=== PATIENT | male | born 1940 | race Caucasian/White ===

== ENCOUNTER 2019-05-17 15:16 | Outpatient (CLI) | payer MEDICARE, SELFPAY ==
--- NOTE | ~2019-05-17 | US_ITS ---
EXAMINATION:US venous doppler LE BI INDICATION:Bilateral lower extremity swelling. TECHNIQUE: Multiple grayscale, color flow and Doppler images of the lower extremity deep venous syste ms were obtained and reviewed. COMPARISON:No prior studies for comparison. FINDINGS: The common femoral, superficial femoral and popliteal veins demonstrate normal respiratory variation, augmentation and compressibility. Color flow is also seen within the posterior tibial, pe roneal, greater saphenous and profunda veins. IMPRESSION: 1: No lower extremity deep venous thrombosis. Reviewed, dictated and finalized at location A.
== END 2019-05-17 15:17 | disposition home or self-care (01) ==
PROVIDERS: PCP Family Medicine; Visit Provider Family Medicine
DX: M79.89 Other specified soft tissue disorders (principal)
CPT/HCPCS: 93970

== ENCOUNTER 2019-11-26 17:13 | Inpatient (IN) | payer MEDICARE, SELFPAY ==
[2019-11-26 17:52] VITALS: BP 132/49; PULSE 68; RESP 16; TEMP 35.9; O2SAT 95
[2019-11-26 18:09] LABS: Mean Corpuscular HGB Conc 31.3 g/dl (32-36); Mean Corpuscular Hemoglobin 30.8 pg (26-34); Mean Corpuscular Volume 98.4 fl (80-100); Mean Platelet Volume 11.5 fl (7.4-10.4); Red Blood Count 1.82 M/mm3 (4.6-6.20); Red Cell Distribution Width 19.4 % (11.5-14.5); White Blood Count 21.1 K/mm3 (4.5-10.0)
[2019-11-26 18:18] LABS: Alanine Aminotransferase 11 U/L (4-50); Albumin Level 3.5 g/dL (3.5-5.1); Alkaline Phosphatase 52 U/L (38-126); Anion Gap 5 mmol/L (8-16); Aspartate Amino Transferase 23 U/L (17-59); Bilirubin,Total 0.4 mg/dL (0.2-1.3); Blood Urea Nitrogen 25 mg/dL (9-20); Calcium 8.6 mg/dL (8.4-10.2); Carbon Dioxide 26 mmol/L (22-30); Chloride 104 mmol/L (98-107); Estimated CRCL calculation 44 ml/min; Estimated Glomerular Filt Rate 54; Glucose 123 mg/dL (75-110); Potassium 3.9 mmol/L (3.4-5.0); Sodium 135 mmol/L (137-145)
[2019-11-26 18:25] LABS: Hemoglobin 5.6 g/dL (14.0-18.0); INR 1.2; Prothrombin Time 14.4 Seconds (11.1-14.7)
[2019-11-26 18:26] LABS: Hematocrit 17.9 % (42.0-52.0); Partial Thromboplastin Time 35.7 SECONDS (22.3-36.8)
[2019-11-26 18:27] LABS: Platelet Count Result 16 k/mm3 (150-375)
[2019-11-26 18:29] LABS: Lymphocytes Absolute Manual 18.14 K/mm3 (1.1-4.5); Monocytes Absolute Manual 0.42 K/mm3 (0.1-0.90); Monocytes Percent Manual 2 % (3-9); Neutrophils Percent Manual 12 % (46-73); Total Cells Counted 100
[2019-11-26 18:30] LABS: Platelet Estimate Decreased (Adequate)
[2019-11-26 18:31] LABS: Anisocytosis 3+ (NORMAL); Hypochromasia 1+ (NORMAL)
[2019-11-26 19:45] VITALS: RESP 19; O2SAT 94
--- NOTE | 2019-11-26 19:57 | ED.GENADULT ---
HPI - General Adult General Chief complaint: Recheck/Abnormal Lab/Rx Stated complaint: recheck blood level Time Seen by Provider: 11/26/19 19:38 Source: patient History of Present Illness HPI narrative: Patient is a 79 y/o male sent in by his PCP for low H/H. He has CLL and had routine labs done today. Lab showed low hemoglobin. He states that he has been feeling mild weakness for about 3 days. There is no alleviating or exacerbating factor. He is able to walk. He states that he noticed some blood on toilet tissue when he wipe. He denies any abdominal pain. Related Data Home Medications Medication Instructions Recorded Confirmed amlodipine 10 mg tablet 10 mg PO DAILY 05/17/19 11/26/19 cholecalciferol (vitamin D3) 25 1,000 unit PO DAILY 05/17/19 11/26/19 mcg (1,000 unit) capsule multivitamin 1 tablet PO DAILY 05/17/19 11/26/19 tafluprost (PF) 0.0015 % eye drops 1 drop RIGHT EYE QPM 05/21/19 11/26/19 in a dropperette timolol maleate 0.5 % once daily 1 drop RIGHTEYE QAM ml 05/21/19 11/26/19 eye drops ibrutinib 420 mg tablet 420 mg PO DAILY 11/26/19 11/26/19 tamsulosin 0.4 mg capsule 0.4 mg PO DAILY 11/26/19 11/26/19 Allergies Allergy/AdvReac Type Severity Reaction Status Date / Time No Known Allergies Allergy Verified 11/26/19 13:58 Review of Systems Constitutional: Constitutional: Denies chills, Denies fever(s), Denies headache(s) and Reports weakness Eyes: Eyes: Denies blurry vision ENT: Denies headache(s) and Denies neck pain Cardiovascular: Cardiovascular: Denies chest pain and Denies dyspnea Respiratory: Respiratory: Denies cough and Denies dyspnea Gastrointestinal: Gastrointestinal: Denies abdominal pain, Reports hematochezia, Denies diarrhea, Denies nausea and Denies vomiting Genitourinary: Genitourinary: Denies hematuria and Denies dysuria Musculoskeletal: Musculoskeletal: Denies back pain and Denies neck pain Neurologic: Denies headache(s) and Reports weakness PMFSH Past Medical History Medical History CLL (chronic lymphocytic leukemia) Family History Family History Sibling Family history of lung cancer Family history of malignant neoplasm of brain Father Family history of coronary artery disease Family history of cardiovascular disease Social History Social History Smoking status: Never smoker Smoking end date: 03/07/03 Alcohol intake: never Gender identity (if verbalized by the patient): Male Exam Const: General: no acute distress and well developed Orientation/consciousness: oriented to person, oriented to place, oriented to time and patient oriented x3 HENMT: Head: normocephalic Ears: external ears normal General nose exam: Normal external nose present Eyes: General: appearance normal, both eyes and all related structures Conjunctivae: conjunctivae normal Neck: Neck: normal visual inspection and full ROM Chest: Chest palpation & inspection: normal inspection of the chest and no tenderness Resp: Effort & Inspection: normal respiratory effort Auscultation: clear to auscultation bilaterally Cardio: Rate: regular rate Rhythm: regular rhythm GI: GI Palp: No abdominal tenderness and Yes Soft to palpation Skin: General skin exam: turgor normal and pallor Neuro: General: oriented to person, oriented to place, oriented to time and patient oriented x3 Cognition (Neuro): normal cognition Extrem: General: normal to inspection, full ROM and no pedal edema Psych: Appearance: grossly normal Mental Status: mental status grossly normal Affect: normal affect Course Consultations Consultation #1: Discussed with SARAH Painting, who agrees to admit to Dr. Lynch. Date: 11/26/19 Time: 19:57 Vital Signs Vital signs: Vital Signs Temperature 35.9 C L 11/26/19 17:52 Pulse Rate 68 11/26/19 17:52 Respiratory Ra
[2019-11-26 20:30] VITALS: BP 149/61; PULSE 71; RESP 18; O2SAT 90
[2019-11-26 22:00] VITALS: BP 147/62; PULSE 80; RESP 17; O2SAT 95
[2019-11-26 22:15] VITALS: O2SAT 95
--- NOTE | 2019-11-26 22:15 | ADMGEN ---
This patient, Mat Montoya, was admitted to [facility] Surg Room 315-02. Patient/family oriented to hospital policies and general routines including ID bracelet, bed and alarms, visiting hours, pain management, procedures, bathroom and other care routines, personal items, smoking policy, room service/diet, and visiting hours. Valuables list has been completed. Information on how to activate the Rapid Response Team has been discussed. Patient/Family are encouraged to report perceived risks to care and to ask questions if they do not understand what they are told or what they should do.
[2019-11-26 22:20] VITALS: BP 160/60; PULSE 77; RESP 20; TEMP 36.6; O2SAT 96; BMI 28.9
[2019-11-27] VITALS (16 sets, daily range): BP systolic 125–158; BP diastolic 48–75; PULSE 65–87; RESP 16–20; TEMP 36.5–36.8; O2SAT 90–96
[2019-11-27] MEDS: SODIUM CHLORIDE 0.9% IV 250 ML 30 ML IV CONT ×2 (00:10→10:15)
[2019-11-27 06:11] LABS: Basophils Percent Auto 0.2 % (0.2-1.2); Eosinophils Percent Auto 0.1 % (0-4.4); Immature Granulocyte Absolute 0.25 K/mm3 (0.00-0.031); Immature Platelet Fraction Pct 7.6 % (0.9-11.2); Lymphocytes Absolute Auto 20.53 K/mm3 (0.9-3.2); Lymphocytes Percent Auto 82.3 % (18.3-44.2); Mean Corpuscular Hemoglobin 30.1 pg (26-34); Mean Corpuscular Volume 94.1 fl (80-100); Mean Platelet Volume 10.3 fl (7.4-10.4); Monocytes Absolute Auto 0.3 K/mm3 (0.1-0.6); Monocytes Percent Auto 1.4 % (2.6-8.5); Neutrophils Absolute Auto 3.8 K/mm3 (1.3-6.7); Red Blood Count 2.19 M/mm3 (4.6-6.20); Red Cell Distribution Width 19.9 % (11.5-14.5)
[2019-11-27 06:46] LABS: Hemoglobin 6.6 g/dL (14.0-18.0)
[2019-11-27 06:47] LABS: Hematocrit 20.6 % (42.0-52.0); Platelet Count Result 14 k/mm3 (150-375)
--- NOTE | 2019-11-27 11:03 | PC.NURSE ---
1015 prbc started , 1030 pt tolerating well, denies any sob, no complaints of n/v, v/s normal.
[2019-11-27] MEDS: amLODIPine BESYLATE 5 MG TABLET 10 MG PO (12:47)
[2019-11-27] MEDS: CHOLECALCIFEROL 1,000 UNITS TABLET 1000 UNITS PO (12:47)
[2019-11-27] MEDS: FUROSEMIDE 40 MG TABLET PO (12:48)
[2019-11-27] MEDS: TAMSULOSIN HCL 0.4 MG CAPSULE PO (12:48)
[2019-11-27] MEDS: POTASSIUM CHLORIDE 20 MEQ TABLET.ER PO (12:48)
[2019-11-27] MEDS: MULTIVITAMINS THERAPEUTIC TAB (*BKC) 1 TABLET PO (12:48)
--- NOTE | 2019-11-27 13:49 | WPDONCCN ---
Assessment and Plan Assessment and plan (1) CLL (chronic lymphocytic leukemia): Code(s): C91.10 - Chronic lymphocytic leukemia of B-cell type not having achieved remission Status: Acute Assessment and Plan: His CLL has been stable in terms of his counts. Will hold Imbruvica due to severe anemia and thrombocytopenia. (2) Severe anemia: Code(s): D64.9 - Anemia, unspecified Status: Acute Assessment and Plan: Etiology not clear as his CLL is controlled. Could be secondary to Imbruvica or occult GI bleed. Obtain FOBT. My suspicion for autoimmune hemolysis is not high as his bilirubin is normal. However, will obtain Serum LDH, Haptoglobin and Direct stephanie. Will also obtain nutritional labs with - Serum Iron, Transferrin Saturation ( TSAT), Serum Total Iron binding capacity ( TIBC), Serum ferritin, Serum B12 and Folate and TSH with reflex to T4.Keep Hb around 8gm/dl. He received one unit of PRBC. (3) Thrombocytopenia: Code(s): D69.6 - Thrombocytopenia, unspecified Status: Acute Assessment and Plan: Thrombocytopenia. His count was normal on 10/29-PLT 151K. Could be secondary to Imbruvica.However I cannot well explain it, as his counts were normal 1 month back. Could be autoimmune due to underlying CLL. Will start methylprednisone 60 mg IV now and then 30mg IV BID starting tomorrow.Transfuse Single donor platelet if count less than 10K or any signs of bleeding. Follow up after results. HPI Data of Consult Date/Time: 11/27/19 13:49 Requesting Physician: Fina Lynch DO Primary Care Provider: Irene Bryan DO Consult Narrative Narrative: Mat Montoya is a 79 year old male who was sent to the [facility] ER for low H/H. The patient did have shortness of breath while in PCP office. In the ED he was ound to have a Hb of 5.6 and 6.6.Platelet count was 16K. His WBC and lymphocyte count has been stable around 25K and 20K respectively. Does complain of intermittent blood on toilet paper when he wipes but no active bleeding. He is a patient known to Dr. Carr and was diagnosed with CLL in July 2017. He was started on Imbruvica 420mg in early June 2019 by . He was last seen by him in Oct 2019 and was still on Imbruvica. Consulted for anemia and CLL Review of Systems Review of Systems: All systems reviewed & are unremarkable except as noted in HPI and below PMFSH Past Medical History Medical History CLL (chronic lymphocytic leukemia) Family History Family History Sibling Family history of lung cancer Family history of malignant neoplasm of brain Father Family history of coronary artery disease Family history of cardiovascular disease Social History Social History Smoking status: Former smoker Second hand tobacco smoke exposure: Yes (Son smokes) Smoking end date: 03/07/03 Alcohol intake: never Substance use: never Gender identity (if verbalized by the patient): Male Spiritual care concerns: No Meds Home Medications and Allergies Home Medications Medication Instructions Recorded Confirmed Type amlodipine 10 mg tablet 10 mg PO DAILY 05/17/19 11/27/19 History cholecalciferol (vitamin D3) 25 1,000 unit PO DAILY 05/17/19 11/27/19 History mcg (1,000 unit) capsule multivitamin 1 tablet PO DAILY 05/17/19 11/27/19 History tafluprost (PF) 0.0015 % eye drops 1 drop RIGHT EYE HS 05/21/19 11/27/19 History in a dropperette timolol maleate 0.5 % once daily 1 drop RIGHTEYE QAM AND QPM ml 05/21/19 11/27/19 History eye drops levothyroxine 100 mcg tablet 100 mcg PO DAILY #90 tablet 08/07/19 11/27/19 Rx fenofibrate 54 mg tablet 54 mg PO DAILY #90 tablet 10/08/19 11/27/19 Rx clotrimazole-betamethasone 1 1 applic TOPICAL BID #45 gm 10/15/19 11/27/19 Rx %-0.05 % topical cream
[2019-11-27 15:16] LABS: Hematocrit 22.1 % (42.0-52.0); Hemoglobin 7.3 g/dL (14.0-18.0)
--- NOTE | 2019-11-27 16:01 | WPDGICN ---
Assessment and Plan Assessment and plan (1) Blood in stool: Code(s): K92.1 - Melena Status: Acute Assessment and Plan: could be perianal most likely from significant thrombocytopenia however he never had a colonoscopy but right now it is not best timing to proceed with one. Ideally platelets will need to be above 50k. continue to monitor for signs of bleeding and if overt gib then will proceed with more urgent scope (2) Severe anemia: Code(s): D64.9 - Anemia, unspecified Status: Acute Assessment and Plan: either underling cll, due to imbruvica. Work up in progress to rule out other causes (hemolysis, occult gib, etc) hem-onc on board (3) CLL (chronic lymphocytic leukemia): Code(s): C91.10 - Chronic lymphocytic leukemia of B-cell type not having achieved remission Status: Acute (4) Thrombocytopenia: Code(s): D69.6 - Thrombocytopenia, unspecified Status: Acute Assessment and Plan: severe thrombocytopenia started on steroids for now and continue to monitor (5) Edema: Code(s): R60.9 - Edema, unspecified Status: Acute GI Consult Note Consult date/time: 11/27/19 16:01 Reason for consult: symptomatic anemia, blood in stools HPI: Mat Montoya is a 79 year old male with history of CLL diagnosed July 2017 treated with imbruvica. He went to see his doctor because has been feeling more tired than usual, also leg edema. Blood work revealed Hb of 5.6, Platelet count 16K (about a month ago 151k's). His WBC stable around 25K . He noted scant amount of blood on toilet paper when he wipes but denies melena, no clots, normal BM's. He never had a colonoscopy. He received blood transfusion and hem-onc has evaluated patient. Review of Systems Constitutional: Constitutional: Reports fatigue and Denies headache(s) Eyes: Eyes: Denies blurry vision ENT: Reports Normal hearing present, Denies headache(s) and Denies neck pain Cardiovascular: Cardiovascular: Denies chest pain and Denies dyspnea Respiratory: Respiratory: Denies dyspnea Gastrointestinal: Gastrointestinal: Reports no additional gastrointestinal complaints Genitourinary: Genitourinary: Denies dysuria Musculoskeletal: Musculoskeletal: Denies neck pain Integumentary/Breasts: Skin/Breast: Denies dry skin Neurologic: Reports Normal hearing present, Denies headache(s) and Denies weakness Psychiatric: Psychiatric: Denies anxiety Endocrine: Endocrine: Denies change in body appearance Hematologic/Lymphatic: Comments: h/o CLL Allergic/Immunologic: Allergic/Immunologic: Denies urticaria PMFSH Past Medical History Medical History CLL (chronic lymphocytic leukemia) Family History Family History Sibling Family history of lung cancer Family history of malignant neoplasm of brain Father Family history of coronary artery disease Family history of cardiovascular disease Social History Social History Smoking status: Former smoker Second hand tobacco smoke exposure: Yes (Son smokes) Smoking end date: 03/07/03 Alcohol intake: never Substance use: never Gender identity (if verbalized by the patient): Male Spiritual care concerns: No Meds Home Medications and Allergies Home Medications Medication Instructions Recorded Confirmed Type amlodipine 10 mg tablet 10 mg PO DAILY 05/17/19 11/27/19 History cholecalciferol (vitamin D3) 25 1,000 unit PO DAILY 05/17/19 11/27/19 History mcg (1,000 unit) capsule multivitamin 1 tablet PO DAILY 05/17/19 11/27/19 History tafluprost (PF) 0.0015 % eye drops 1 drop RIGHT EYE HS 05/21/19 11/27/19 History in a dropperette timolol maleate 0.5 % once daily 1 drop RIGHTEYE QAM AND QPM ml 05/21/19 11/27/19 History eye drops levothyroxine 100 mcg tablet 100 mcg PO DAILY #90 tablet 06
[2019-11-27 16:45] LABS: Lactate Dehydrogenase 396 U/L (313-618)
[2019-11-27 17:05] LABS: Iron 237 ug/dL (49-181)
--- NOTE | 2019-11-27 17:08 | PM.IMHP ---
H&P: HPI History of Present Illness Date/Time: 11/27/19 17:08 Chief complaint: severe anemia Narrative: Mat Montoya is a 79 year old male admitted with 3 days of rectal bleeding, bright red on tissue paper only, no mixed with his stools. Pts hb today is 5.6. Pts has a history of CLL not in remission. Pts labs also show platelets [place] 14 [place] [id number]. Pt seen by GI and oncology. Steroids iv ordered already by oncology. And pt has already received blood transfusion. I believe pt has already had his colonscopy. I will order notes from his PCP, DR Jones. No other specific complaints apart from lethargy and weakness and BRBR. Review of Systems Review of Systems: All systems reviewed & are unremarkable except as noted in HPI and below ROS unobtainable: Yes other (bright red rectal bleeding, weakness, lethargy ) PMFSH Past Medical History Medical History Blood in stool CLL (chronic lymphocytic leukemia) Family History Family History Sibling Family history of lung cancer Family history of malignant neoplasm of brain Father Family history of coronary artery disease Family history of cardiovascular disease Social History Social History Smoking status: Former smoker Second hand tobacco smoke exposure: Yes (Son smokes) Smoking end date: 03/07/03 Alcohol intake: never Substance use: never Gender identity (if verbalized by the patient): Male Spiritual care concerns: No Meds Home Medications and Allergies Home Medications Medication Instructions Recorded Confirmed Type amlodipine 10 mg tablet 10 mg PO DAILY 05/17/19 11/27/19 History cholecalciferol (vitamin D3) 25 1,000 unit PO DAILY 05/17/19 11/27/19 History mcg (1,000 unit) capsule multivitamin 1 tablet PO DAILY 05/17/19 11/27/19 History tafluprost (PF) 0.0015 % eye drops 1 drop RIGHT EYE HS 05/21/19 11/27/19 History in a dropperette timolol maleate 0.5 % once daily 1 drop RIGHTEYE QAM AND QPM ml 05/21/19 11/27/19 History eye drops levothyroxine 100 mcg tablet 100 mcg PO DAILY #90 tablet 08/07/19 11/27/19 Rx fenofibrate 54 mg tablet 54 mg PO DAILY #90 tablet 10/08/19 11/27/19 Rx clotrimazole-betamethasone 1 1 applic TOPICAL BID #45 gm 10/15/19 11/27/19 Rx %-0.05 % topical cream ibrutinib 420 mg tablet 420 mg PO DAILY 11/26/19 11/27/19 History tamsulosin 0.4 mg capsule 0.4 mg PO DAILY 11/26/19 11/27/19 History loratadine [Claritin] 10 mg PO DAILY PRN 11/27/19 11/27/19 History Allergies Allergy/AdvReac Type Severity Reaction Status Date / Time No Known Allergies Allergy Verified 11/26/19 13:58 Vital Signs Vital Signs - 24 hr 11/26/19 17:52 11/26/19 19:45 11/26/19 20:30 Temperature 35.9 C L Pulse Rate 68 71 Respiratory Rate 16 19 18 Blood Pressure 132/49 L 149/61 H Pulse Oximetry 95 94 90 11/26/19 22:00 11/26/19 22:15 11/26/19 22:20 Temperature 36.6 C Pulse Rate 80 77 Respiratory Rate 17 20 Blood Pressure 147/62 H 160/60 H Pulse Oximetry 95 95 96 11/27/19 00:10 11/27/19 00:25 11/27/19 01:25 Temperature 36.7 C 36.6 C 36.7 C Pulse Rate 78 78 76 Respiratory Rate 20 20 20 Blood Pressure 151/75 H 151/48 H 125/62 Pulse Oximetry 95 93 95 11/27/19 02:25 11/27/19 03:25 11/27/19 06:00 Temperature 36.6 C 36.5 C 36.6 C Pulse Rate 72 74 87 Respiratory Rate 18 18 20 Blood Pressure 144/49 H 150/54 H 158/65 H Pulse Oximetry 95 96 94 11/27/19 09:15 11/27/19 10:05 11/27/19 10:13 Temperature 36.8 C Pulse Rate 67 Respiratory Rate 16 Blood Pressure 146/48 H Pulse Oximetry 93 92 92 11/27/19 10:20 11/27/19 10:30 11/27/19 11:15 Temperature 36.8 C 36.6 C 36.6 C Pulse Rate 67 68 66 Respiratory Rate 16 16 18 Blood Pressure 146/68 H 148/50 H 145/57 H Pulse Oximetry 92 93 91 11/27/19 12:15 11/27/19 12:40 11/27/19 1
[2019-11-27 17:14] LABS: Percent Iron Saturation 88 % (20-50)
[2019-11-27] MEDS: methylPREDNISolone SOD SUCC 125 MG VIAL 60 MG IV PUSH (17:30)
[2019-11-27 18:40] LABS: Hematocrit 24.3 % (42.0-52.0); Immature Platelet Fraction Pct 7.3 % (0.9-11.2); Mean Corpuscular HGB Conc 32.9 g/dl (32-36); Mean Corpuscular Hemoglobin 30.5 pg (26-34); Mean Corpuscular Volume 92.7 fl (80-100); Red Blood Count 2.62 M/mm3 (4.6-6.20); Red Cell Distribution Width 19.2 % (11.5-14.5); White Blood Count 24.7 K/mm3 (4.5-10.0)
[2019-11-27 18:47] LABS: Platelet Count Result 17 k/mm3 (150-375)
[2019-11-27 21:16] LABS: Hematocrit 23.6 % (42.0-52.0); Hemoglobin 7.7 g/dL (14.0-18.0); Immature Platelet Fraction Pct 5.9 % (0.9-11.2); Mean Corpuscular HGB Conc 32.6 g/dl (32-36); Mean Corpuscular Hemoglobin 30.2 pg (26-34); Mean Corpuscular Volume 92.5 fl (80-100); Mean Platelet Volume 11.3 fl (7.4-10.4); Red Blood Count 2.55 M/mm3 (4.6-6.20); Red Cell Distribution Width 19.2 % (11.5-14.5); White Blood Count 17.9 K/mm3 (4.5-10.0)
[2019-11-27 21:20] LABS: Platelet Count Result 16 k/mm3 (150-375)
[2019-11-27] MEDS: BETAMETHASONE/CLOTRIMAZOLE CR 45 GM TUBE 1 APPLIC TOPICAL (21:30)
[2019-11-27] MEDS: TIMOLOL MALEATE 0.5% OP SOLN 5 ML BOTTLE 1 DROP RIGHT EYE (21:30)
[2019-11-27] MEDS: methylPREDNISolone SOD SUCC 40 MG VIAL 30 MG IV PUSH (21:57)
[2019-11-28 05:00] VITALS: BP 136/66; PULSE 80; RESP 18; TEMP 36.7; O2SAT 92
[2019-11-28] MEDS: LEVOTHYROXINE SODIUM 100 MCG TABLET PO (05:50)
[2019-11-28] MEDS: amLODIPine BESYLATE 5 MG TABLET 10 MG PO (08:45)
[2019-11-28] MEDS: FUROSEMIDE 40 MG TABLET PO (08:45)
[2019-11-28] MEDS: POTASSIUM CHLORIDE 20 MEQ TABLET.ER PO (08:45)
[2019-11-28] MEDS: MULTIVITAMINS THERAPEUTIC TAB (*BKC) 1 TABLET PO (08:45)
[2019-11-28] MEDS: CHOLECALCIFEROL 1,000 UNITS TABLET 1000 UNITS PO (08:46)
[2019-11-28] MEDS: TIMOLOL MALEATE 0.5% OP SOLN 5 ML BOTTLE 1 DROP RIGHT EYE ×2 (08:46→20:09)
[2019-11-28] MEDS: BETAMETHASONE/CLOTRIMAZOLE CR 45 GM TUBE 1 APPLIC TOPICAL ×2 (08:46→20:09)
[2019-11-28] MEDS: TAMSULOSIN HCL 0.4 MG CAPSULE PO (08:46)
[2019-11-28] MEDS: PANTOPRAZOLE SODIUM IV 40 MG VIAL IV PUSH (08:46)
[2019-11-28] MEDS: methylPREDNISolone SOD SUCC 40 MG VIAL 30 MG IV PUSH ×2 (08:52→20:09)
--- NOTE | 2019-11-28 11:46 | WPDGIPROGNO ---
Progress Note: A&P Assessment and Plan (1) Severe anemia: Code(s): D64.9 - Anemia, unspecified Status: Acute Assessment and Plan: most likely hematological related (CLL, side effect imbruvica, etc), hem-onc on board no overt gib. still with severe thrombocytopenia and colonoscopy now will be risky he received blood transfusion (2) Blood in stool: Code(s): K92.1 - Melena Status: Acute Assessment and Plan: he has not seen any since admission (3) Thrombocytopenia: Code(s): D69.6 - Thrombocytopenia, unspecified Status: Acute Assessment and Plan: by hematology, empirically on iv steroids (4) CLL (chronic lymphocytic leukemia): Code(s): C91.10 - Chronic lymphocytic leukemia of B-cell type not having achieved remission Status: Acute (5) Edema: Code(s): R60.9 - Edema, unspecified Status: Acute Subjective Date/time seen: 11/28/19 11:46 Interval history: he is comfortable, had BM yesterday without blood. Leg edema better. Review of Systems Review of Systems: All systems reviewed & are unremarkable except as noted in HPI and below Exam Const: General: comfortable and no acute distress HENMT: General nose exam: Normal nares present Eyes: General: appearance normal, both eyes and all related structures Neck: Neck: no JVD Resp: Effort & Inspection: normal respiratory effort Auscultation: clear to auscultation bilaterally Cardio: Rate: regular rate Rhythm: regular rhythm Heart sounds: Murmur heart sound present (soft murmur) GI: Inspection: non-distended GI Palp: Yes Soft to palpation Auscultation: normal bowel sounds Skin: General skin exam: pallor Other: erythema in both legs Neuro: General: gait normal Speech: normal speech Extrem: General: pedal edema Psych: Mental Status: mental status grossly normal Objective Data Vital Signs Vital Signs: Vital Signs - 24 hr 11/27/19 12:15 11/27/19 12:40 11/27/19 14:00 Temperature 98.0 F 97.8 F 98.2 F Pulse Rate 66 74 65 Respiratory Rate 18 18 20 Blood Pressure 151/53 H 146/50 H 148/51 H Pulse Oximetry 93 94 93 11/27/19 21:59 11/28/19 05:00 Temperature 98.2 F 98.0 F Pulse Rate 75 80 Respiratory Rate 18 18 Blood Pressure 148/61 H 136/66 Pulse Oximetry 90 92 Intake/Output Intake/Output: Intake & Output 11/25/19 11/26/19 11/27/19 11/28/19 23:59 23:59 23:59 23:59 Intake Total 2045 390 Output Total 2400 1300 Balance -355 -090 Meds/Results Medications: Active Medications Generic Name Dose Route Start Last Admin Trade Name Freq PRN Reason Stop Dose Admin Amlodipine Besylate 10 mg 11/27/19 09:00 11/28/19 08:45 Norvasc PO 10 mg DAILY MARLEEN Administration Clotrimazole 1 applic 11/27/19 21:00 11/28/19 08:46 Lotrisone Cream TOPICAL 1 applic Q12HR MARLEEN Administration Furosemide 40 mg 11/27/19 09:00 11/28/19 08:45 Lasix Tablet PO 40 mg QAM MARLEEN Administration Levothyroxine Sodium 100 mcg 11/28/19 06:30 11/28/19 05:50 Synthroid PO 100 mcg DAILY@0630 MARLEEN Administration Loratadine 10 mg 11/27/19 11:52 Claritin PO DAILY PRN Allergy Symptoms Methylprednisolone Sodium Succinate 30 mg 11/27/19 21:00 11/28/19 08:52 Solu-Medrol IV PUSH 30 mg Q12H MARLEEN Administration Multivitamins Therapeutic 1 tablet 11/27/19 09:00 11/28/19 08:45 Multivitamins Therapeutic(*Bkc PO 1 tablet DAILY MARLEEN Administration Non-Formulary Medication 54 mg 11/28/19 09:00 Fenofibrate PO 12/28/19 09:01 DAILY MARLEEN Non-Formulary Medication 1 drop 11/27/19 21:00 Tafluprost (Pf) [Zioptan (Pf)] XX 12/27/19 21:01 [facility] Pantoprazole Sodium 40 mg 11/28/19 09:00 11/28/19 08:46 Protonix Iv IV PUSH 40 mg QAM MARLEEN Administration Potassium Chloride 20 meq 11/27/19 09:00 11/28/19 08:45 Kcl Tablet PO 20 meq DAILY MARLEEN Administration Tamsulosin HCl 0.4 mg 11/27/19 09:00
[2019-11-28 14:00] VITALS: BP 134/50; PULSE 76; RESP 18; TEMP 36.6; O2SAT 92
--- NOTE | 2019-11-28 14:09 | PM.IMPN ---
Progress Note: A&P Assessment and Plan (1) Blood in stool: Code(s): K92.1 - Melena Status: Acute Assessment and Plan: No further rectal bleeding, pt remain hemodynamically stable (2) Thrombocytopenia: Code(s): D69.6 - Thrombocytopenia, unspecified Status: Acute Assessment and Plan: Pt seen by oncology Iv steroids have been started hold ibrutinib and any blood thinners monitor plts (3) Severe anemia: Code(s): D64.9 - Anemia, unspecified Status: Acute Assessment and Plan: Pt is sp blood transfusion improved to hb 7 continue to monitor hold ibrutinib and any blood thinners (4) CLL (chronic lymphocytic leukemia): Code(s): C91.10 - Chronic lymphocytic leukemia of B-cell type not having achieved remission Status: Acute Assessment and Plan: Dr Arriaga consulted, follow recommendations Subjective Date/time seen: 11/28/19 14:09 Interval history: 79 year old male admitted with 3 days of rectal bleeding. Pts has a history of CLL not in remission. Pt seen by GI and oncology. Steroids iv ordered already by oncology. And pt has already received blood transfusion. No further bleeding reported. Plts improving slowly at 16, hb is 7. Review of Systems Review of Systems: All systems reviewed & are unremarkable except as noted in HPI and below Gastrointestinal: Gastrointestinal: Denies abdominal pain and Denies hematochezia Exam Const: General: other (weakness, tiredness and lethargy ) HENMT: Head: normocephalic Eyes: General: appearance normal, both eyes and all related structures Pupils: Equal, round and reactive pupils present Neck: Neck: supple Chest: Chest palpation & inspection: normal inspection of the chest Resp: Effort & Inspection: normal respiratory effort Auscultation: clear to auscultation bilaterally Cardio: Jugular venous distension: no JVD Rhythm: regular rhythm Heart sounds: S1 normal heart sound present and S2 normal heart sound present GI: Inspection: normal to inspection Auscultation: normal bowel sounds Skin: General skin exam: normal color and dry skin Neuro: Cranial nerves: Yes CN's II-XII intact bilaterally and Yes Equal, round and reactive pupils present Cognition (Neuro): normal cognition Speech: normal speech Motor exam (neuro): 5/5 motor strength present throughout Extrem: General: normal to inspection Psych: Appearance: grossly normal Mental Status: mental status grossly normal Objective Data Vital Signs Vital Signs: Vital Signs - 24 hr 11/27/19 21:59 11/28/19 05:00 Temperature 36.8 C 36.7 C Pulse Rate 75 80 Respiratory Rate 18 18 Blood Pressure 148/61 H 136/66 Pulse Oximetry 90 92 Intake/Output Intake/Output: Intake & Output 11/25/19 11/26/19 11/27/19 11/28/19 23:59 23:59 23:59 23:59 Intake Total 2045 390 Output Total 2400 1300 Balance -355 910 Meds/Results Medications: Active Medications Generic Name Dose Route Start Last Admin Trade Name Freq PRN Reason Stop Dose Admin Amlodipine Besylate 10 mg 11/27/19 09:00 11/28/19 08:45 Norvasc PO 10 mg DAILY MARLEEN Administration Clotrimazole 1 applic 11/27/19 21:00 11/28/19 08:46 Lotrisone Cream TOPICAL 1 applic Q12HR MARLEEN Administration Furosemide 40 mg 11/27/19 09:00 11/28/19 08:45 Lasix Tablet PO 40 mg QAM MARLEEN Administration Levothyroxine Sodium 100 mcg 11/28/19 06:30 11/28/19 05:50 Synthroid PO 100 mcg DAILY@0630 MARLEEN Administration Loratadine 10 mg 11/27/19 11:52 Claritin PO DAILY PRN Allergy Symptoms Methylprednisolone Sodium Succinate 30 mg 11/27/19 21:00 11/28/19 08:52 Solu-Medrol IV PUSH 30 mg Q12H MARLEEN Administration Multivitamins Therapeutic 1 tablet 11/27/19 09:00 11/28/19 08:45 Multivitamins Therapeutic(*Bkc PO 1 tablet DAILY MARLEEN Administration Non-Formulary Medication 54 mg 11/28/19 09:00 Fenofibrate PO 12/28/19 09:01
--- NOTE | 2019-11-28 14:50 | WPDONCPN ---
Progress Note: A&P Assessment and Plan (1) CLL (chronic lymphocytic leukemia): Code(s): C91.10 - Chronic lymphocytic leukemia of B-cell type not having achieved remission Status: Acute Assessment and Plan: 1. Absolute Lymphocyte count improved 2. WBC decreased 3. partial response / remission with CLL from Imbruvica 4. Continue to hold Imbruvica (2) Thrombocytopenia: Code(s): D69.6 - Thrombocytopenia, unspecified Status: Acute Assessment and Plan: 1. ? 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 check fibrinogen 3. also check retic count / LDH / hapto for AHA 4. CBC daily 5. Continue with MP 6. if CBC today returns with no change, I will add IVIG Time Spent With Patient Time with patient: 15 - 25 minutes Review of Systems Review of Systems All systems reviewed & are unremarkable except as noted in HPI and below Constitutional Constitutional: Denies anorexia, Reports fatigue, Denies fever(s), Denies malaise, Denies night sweats, Reports snoring, Reports weakness and Denies weight loss Eyes Eyes: Denies blurry vision ENT Denies dysphagia, Denies epistaxis, Denies mouth lesions, Denies mouth pain, Denies odynophagia, Denies disequilibrium and Denies sore throat Cardiovascular Cardiovascular: Denies chest pain, Reports pedal edema, Reports leg edema and Denies dyspnea Respiratory Respiratory: Denies cough, Reports dyspnea, Reports dyspnea on exertion and Reports snoring Gastrointestinal Gastrointestinal: Denies abdominal pain, Reports melena, Denies constipation, Denies dysphagia, Denies diarrhea, Denies nausea, Denies odynophagia and Denies vomiting Genitourinary Genitourinary: Denies hematuria and Denies dysuria Musculoskeletal Musculoskeletal: Denies myalgias, Denies arthralgias and Denies muscle weakness Integumentary/Breasts Skin/Breast: Denies rash and Reports unusual bruising Neurologic Reports abnormal gait, Denies confusion, Denies disequilibrium and Denies weakness Psychiatric Psychiatric: Denies anxiety, Denies confusion and Denies depression Endocrine Endocrine: Denies fatigue Hematologic/Lymphatic Hematologic/Lymphatic: Denies easy bleeding, Denies easy bruising and Denies lymphadenopathy Exam Const: General: healthy appearing, no acute distress, well developed, alert and awake Nutritional Appearance: well nourished Orientation/consciousness: patient oriented x3 HENMT: Head: normocephalic and atraumatic Ears: external ears normal General nose exam: Normal external nose present and Normal nares present Face and sinus: sinuses nontender Mouth: Yes Normal oral and palatal mucosa present and Yes moist mucous membranes Teeth and gingiva: dentition normal Throat: uvula midline Eyes: Conjunctivae: conjunctivae normal Pupils: Equal, round and reactive pupils present EOM: EOMs intact bilaterally Neck: Neck: full ROM, no lymphadenopathy and supple Chest: Chest palpation & inspection: normal inspection of the chest Resp: Effort & Inspection: normal respiratory effort Auscultation: clear to auscultation bilaterally Cardio: Rate: regular rate Rhythm: regular rhythm Heart sounds: S1 normal heart sound present and S2 normal heart sound present Peripheral pulses: Peripheral pulses 2+ throughout GI: Percussion: Yes normal to percussion Auscultation: normal bowel sounds Rectal Exam: deferred : General: Yes no CVA tenderness Back/Spine/Pelvis: Back: no CVA tenderness Skin: General skin exam: No normal color, no rashes or lesions noted, turgor normal and no ecchymosis Rashes: no rashes Other: multiple ecchymoses on forearms pallor Neuro: General: patient oriented x3, No gait normal, tone normal and moves all extremities Cranial nerves: Yes CN's II-XII intact bilaterally and Yes Equal, round and reactive pupils present Cognition (Neuro): normal cognition Speech: normal speech Gait exam (Neuro): Normal gait present Motor exam (neuro): Abnormal motor strength present Sensory Exam: normal sens
[2019-11-28 15:46] LABS: Hematocrit 22.9 % (42.0-52.0); Hemoglobin 7.5 g/dL (14.0-18.0); Mean Corpuscular HGB Conc 32.8 g/dl (32-36); Mean Corpuscular Hemoglobin 30.5 pg (26-34); Mean Corpuscular Volume 93.1 fl (80-100); Mean Platelet Volume 10.1 fl (7.4-10.4); Red Blood Count 2.46 M/mm3 (4.6-6.20); Red Cell Distribution Width 18.6 % (11.5-14.5); White Blood Count 24.7 K/mm3 (4.5-10.0)
[2019-11-28 15:49] LABS: Platelet Count Result 14 k/mm3 (150-375)
[2019-11-28] MEDS: diphenhydrAMINE HCl CAP 25 MG CAPSULE PO (18:02)
[2019-11-28] MEDS: ACETAMINOPHEN 500 MG TABLET 1000 MG PO (18:11)
[2019-11-28 18:38] LABS: Hematocrit 24.6 % (42.0-52.0); Hemoglobin 8.1 g/dL (14.0-18.0); Mean Corpuscular HGB Conc 32.9 g/dl (32-36); Mean Corpuscular Hemoglobin 30.6 pg (26-34); Mean Corpuscular Volume 92.8 fl (80-100); Mean Platelet Volume 12.6 fl (7.4-10.4); Red Blood Count 2.65 M/mm3 (4.6-6.20); Red Cell Distribution Width 18.6 % (11.5-14.5); White Blood Count 27.3 K/mm3 (4.5-10.0)
[2019-11-28 18:43] LABS: Platelet Count Result 20 k/mm3 (150-375)
[2019-11-28 22:00] VITALS: BP 124/61; PULSE 71; RESP 18; TEMP 36.7; O2SAT 90
[2019-11-29] MEDS: LEVOTHYROXINE SODIUM 100 MCG TABLET PO (05:50)
[2019-11-29 06:00] VITALS: BP 142/60; PULSE 73; RESP 18; TEMP 36.4; O2SAT 90
[2019-11-29 06:07] LABS: Hematocrit 22.4 % (42.0-52.0); Hemoglobin 7.4 g/dL (14.0-18.0); Immature Platelet Fraction Pct 6.5 % (0.9-11.2); Immature Reticulocyte Fraction 20.4 % (3.0-15.9); Mean Corpuscular Hemoglobin 30.8 pg (26-34); Mean Corpuscular Volume 93.3 fl (80-100); Mean Platelet Volume 11.4 fl (7.4-10.4); Red Cell Distribution Width 18.3 % (11.5-14.5); Reticulocyte Hemoglobin Conten 38.7 pg (28.2-35.7); Reticulocyte Percent 0.32 % (0.7-4.3); Reticulocytes Absolute 0.01 B/L (32.2-175.7); White Blood Count 21.5 K/mm3 (4.5-10.0)
[2019-11-29 06:18] LABS: Anion Gap 2 mmol/L (8-16); Blood Urea Nitrogen 27 mg/dL (9-20); Calcium 8.3 mg/dL (8.4-10.2); Carbon Dioxide 28 mmol/L (22-30); Chloride 106 mmol/L (98-107); Estimated CRCL calculation 44 ml/min; Estimated Glomerular Filt Rate 54; Glucose 126 mg/dL (75-110); Lactate Dehydrogenase 367 U/L (313-618); Sodium 136 mmol/L (137-145)
[2019-11-29 06:51] LABS: Platelet Count Result 18 k/mm3 (150-375)
[2019-11-29 06:55] LABS: Fibrinogen 213 mg/dl (215-510)
[2019-11-29 08:00] VITALS: PULSE 73; RESP 18; O2SAT 90
[2019-11-29] MEDS: POTASSIUM CHLORIDE 20 MEQ TABLET.ER PO (09:32)
[2019-11-29] MEDS: amLODIPine BESYLATE 5 MG TABLET 10 MG PO (09:33)
[2019-11-29] MEDS: MULTIVITAMINS THERAPEUTIC TAB (*BKC) 1 TABLET PO (09:33)
[2019-11-29] MEDS: methylPREDNISolone SOD SUCC 40 MG VIAL 30 MG IV PUSH ×2 (09:33→20:56)
[2019-11-29] MEDS: CHOLECALCIFEROL 1,000 UNITS TABLET 1000 UNITS PO (09:33)
[2019-11-29] MEDS: FUROSEMIDE 40 MG TABLET PO (09:33)
[2019-11-29] MEDS: TAMSULOSIN HCL 0.4 MG CAPSULE PO (09:33)
[2019-11-29] MEDS: PANTOPRAZOLE SODIUM IV 40 MG VIAL IV PUSH (09:34)
[2019-11-29] MEDS: TIMOLOL MALEATE 0.5% OP SOLN 5 ML BOTTLE 1 DROP RIGHT EYE ×2 (09:34→20:55)
[2019-11-29] MEDS: BETAMETHASONE/CLOTRIMAZOLE CR 45 GM TUBE 1 APPLIC TOPICAL ×2 (09:35→20:55)
--- NOTE | 2019-11-29 13:02 | PM.IMPN ---
Progress Note: A&P Assessment and Plan (1) Blood in stool: Code(s): K92.1 - Melena Status: Acute Assessment and Plan: No further rectal bleeding, pt remain hemodynamically stable (2) Thrombocytopenia: Code(s): D69.6 - Thrombocytopenia, unspecified Status: Acute Assessment and Plan: Pt seen by oncology Iv steroids have been started and iv immunoglobulin hold ibrutinib and any blood thinners monitor plts (3) Severe anemia: Code(s): D64.9 - Anemia, unspecified Status: Acute Assessment and Plan: Pt is sp blood transfusion improved to hb 7 continue to monitor hold ibrutinib and any blood thinners (4) CLL (chronic lymphocytic leukemia): Code(s): C91.10 - Chronic lymphocytic leukemia of B-cell type not having achieved remission Status: Acute Assessment and Plan: Dr Arriaga and Bruno consulted, follow recommendations Subjective Date/time seen: 11/29/19 13:02 Interval history: 79 year old male admitted with 3 days of rectal bleeding. Pts has a history of CLL not in remission. Pt seen by GI and oncology. Steroids iv ordered already by oncology. And pt has already received blood transfusion. No further bleeding reported. Plts improving slowly at 18. hb is 7. Pt has been started on immunoglobulin by oncology Review of Systems Review of Systems: All systems reviewed & are unremarkable except as noted in HPI and below Exam Const: General: anxious and other HENMT: Head: normocephalic Eyes: General: appearance normal, both eyes and all related structures Pupils: Equal, round and reactive pupils present Neck: Neck: supple Chest: Chest palpation & inspection: normal inspection of the chest Resp: Effort & Inspection: normal respiratory effort Auscultation: clear to auscultation bilaterally Cardio: Jugular venous distension: no JVD Rhythm: regular rhythm Heart sounds: S1 normal heart sound present and S2 normal heart sound present GI: Inspection: normal to inspection Auscultation: normal bowel sounds Skin: Other: petechial rash on back and stomach Neuro: Cranial nerves: Yes CN's II-XII intact bilaterally and Yes Equal, round and reactive pupils present Cognition (Neuro): normal cognition Speech: normal speech Motor exam (neuro): 5/5 motor strength present throughout Extrem: General: normal to inspection Psych: Appearance: grossly normal Mental Status: mental status grossly normal Objective Data Vital Signs Vital Signs: Vital Signs - 24 hr 09/23/20 14:00 11/28/19 22:00 11/29/19 06:00 Temperature 36.6 C 36.7 C 36.4 C Pulse Rate 76 71 73 Respiratory Rate 18 18 18 Blood Pressure 134/50 L 124/61 142/60 H Pulse Oximetry 92 90 90 11/29/19 08:00 Temperature Pulse Rate 73 Respiratory Rate 18 Blood Pressure Pulse Oximetry 90 Intake/Output Intake/Output: Intake & Output 11/26/19 11/27/19 11/28/19 11/29/19 23:59 23:59 23:59 23:59 Intake Total 2045 1270 1400 Output Total 2400 2400 1050 Balance -355 -1130 350 Meds/Results Medications: Active Medications Generic Name Dose Route Start Last Admin Trade Name Freq PRN Reason Stop Dose Admin Amlodipine Besylate 10 mg 11/27/19 09:00 11/29/19 09:33 Norvasc PO 10 mg DAILY MARLEEN Administration Clotrimazole 1 applic 11/27/19 21:00 11/29/19 09:35 Lotrisone Cream TOPICAL 1 applic Q12HR MARLEEN Administration Furosemide 40 mg 11/27/19 09:00 11/29/19 09:33 Lasix Tablet PO 40 mg QAM MARLEEN Administration Levothyroxine Sodium 100 mcg 11/28/19 06:30 11/29/19 05:50 Synthroid PO 100 mcg DAILY@0630 MARLEEN Administration Loratadine 10 mg 11/27/19 11:52 Claritin PO DAILY PRN Allergy Symptoms Methylprednisolone Sodium Succinate 30 mg 11/27/19 21:00 11/29/19 09:33 Solu-Medrol IV PUSH 30 mg Q12H MARLEEN Administration Multivitamins Therapeutic 1 tablet 11/27/19 09:00 11/29/19 09:33 Multivitamins Therapeutic(
--- NOTE | 2019-11-29 13:14 | WPDGIPROGNO ---
Progress Note: A&P Assessment and Plan (1) Severe anemia: Code(s): D64.9 - Anemia, unspecified Status: Acute Assessment and Plan: most likely hematological related (CLL, side effect imbruvica, etc), hem-onc on board no overt gib and right now is not the best time to proceed with colonoscopy given thrombocytopenia we can always do one as outpatient when platelets >50k [place], please call if questions (2) Blood in stool: Code(s): K92.1 - Melena Status: Acute Assessment and Plan: he has not seen any since admission (3) Thrombocytopenia: Code(s): D69.6 - Thrombocytopenia, unspecified Status: Acute Assessment and Plan: by hematology, empirically on iv steroids and consider ivig (4) CLL (chronic lymphocytic leukemia): Code(s): C91.10 - Chronic lymphocytic leukemia of B-cell type not having achieved remission Status: Acute (5) Edema: Code(s): R60.9 - Edema, unspecified Status: Acute Subjective Date/time seen: 11/29/19 13:14 Interval history: no report of rectal bleeding, he is comfortable Review of Systems Review of Systems: All systems reviewed & are unremarkable except as noted in HPI and below Exam Const: General: comfortable and no acute distress HENMT: General nose exam: Normal nares present Eyes: General: appearance normal, both eyes and all related structures Neck: Neck: no JVD Resp: Effort & Inspection: normal respiratory effort Auscultation: clear to auscultation bilaterally Cardio: Rate: regular rate Rhythm: regular rhythm Heart sounds: Murmur heart sound present (soft murmur) GI: Inspection: non-distended GI Palp: Yes Soft to palpation Auscultation: normal bowel sounds Skin: General skin exam: pallor Other: erythema in both legs Neuro: General: gait normal Speech: normal speech Extrem: General: pedal edema Psych: Mental Status: mental status grossly normal Objective Data Vital Signs Vital Signs: Vital Signs - 24 hr 11/28/19 14:00 11/28/19 22:00 11/29/19 06:00 Temperature 97.9 F 98.1 F 97.6 F Pulse Rate 76 71 73 Respiratory Rate 18 18 18 Blood Pressure 134/50 L 124/61 142/60 H Pulse Oximetry 92 90 90 11/29/19 08:00 Temperature Pulse Rate 73 Respiratory Rate 18 Blood Pressure Pulse Oximetry 90 Intake/Output Intake/Output: Intake & Output 11/26/19 11/27/19 11/28/19 11/29/19 23:59 23:59 23:59 23:59 Intake Total 2045 1270 1400 Output Total 2400 2400 1050 Balance -355 -1130 350 Meds/Results Medications: Active Medications Generic Name Dose Route Start Last Admin Trade Name Freq PRN Reason Stop Dose Admin Amlodipine Besylate 10 mg 11/27/19 09:00 11/29/19 09:33 Norvasc PO 10 mg DAILY MARLEEN Administration Clotrimazole 1 applic 11/27/19 21:00 11/29/19 09:35 Lotrisone Cream TOPICAL 1 applic Q12HR MARLEEN Administration Furosemide 40 mg 11/27/19 09:00 11/29/19 09:33 Lasix Tablet PO 40 mg QAM MARLEEN Administration Levothyroxine Sodium 100 mcg 11/28/19 06:30 11/29/19 05:50 Synthroid PO 100 mcg DAILY@0630 MARLEEN Administration Loratadine 10 mg 11/27/19 11:52 Claritin PO DAILY PRN Allergy Symptoms Methylprednisolone Sodium Succinate 30 mg 11/27/19 21:00 11/29/19 09:33 Solu-Medrol IV PUSH 30 mg Q12H MARLEEN Administration Multivitamins Therapeutic 1 tablet 11/27/19 09:00 11/29/19 09:33 Multivitamins Therapeutic(*Bkc PO 1 tablet DAILY MARLEEN Administration Non-Formulary Medication 54 mg 11/28/19 09:00 Fenofibrate PO 12/28/19 09:01 DAILY MARLEEN Non-Formulary Medication 1 drop 11/27/19 21:00 Tafluprost (Pf) [Zioptan (Pf)] XX 12/27/19 21:01 HS MARLEEN Pantoprazole Sodium 40 mg 11/28/19 09:00 11/29/19 09:34 Protonix Iv IV PUSH 40 mg QAM MARLEEN Administration Potassium Chloride 20 meq 11/27/19 09:00 11/29/19 09:32 Kcl Tablet PO 20 meq DAILY MARLEEN Administratio
--- NOTE | 2019-11-29 13:29 | PC.NURSE ---
On 11/29/19, the student, [ Tonya Escobar], provided care and completed [facility] documentation on this patient. I have reviewed the student's documentation and agree with the findings.
[2019-11-29 13:54] VITALS: BP 142/53; PULSE 71; RESP 16; TEMP 36.8; O2SAT 93
[2019-11-29 18:05] LABS: Hematocrit 25.9 % (42.0-52.0); Hemoglobin 8.5 g/dL (14.0-18.0); Mean Corpuscular HGB Conc 32.8 g/dl (32-36); Mean Corpuscular Hemoglobin 30.7 pg (26-34); Mean Corpuscular Volume 93.5 fl (80-100); Mean Platelet Volume 11.5 fl (7.4-10.4); Red Blood Count 2.77 M/mm3 (4.6-6.20); Red Cell Distribution Width 18.5 % (11.5-14.5); White Blood Count 27.1 K/mm3 (4.5-10.0)
[2019-11-29 18:13] LABS: Platelet Count Result 24 k/mm3 (150-375)
[2019-11-29 22:00] VITALS: BP 130/55; PULSE 65; RESP 18; TEMP 36.7; O2SAT 93
[2019-11-30 05:05] LABS: Red Blood Cell Folate >1000 ng/mL RBC (>280)
[2019-11-30 06:00] VITALS: BP 128/58; PULSE 69; RESP 20; TEMP 36.7; O2SAT 91
[2019-11-30 06:07] LABS: Hematocrit 22.7 % (42.0-52.0); Hemoglobin 7.5 g/dL (14.0-18.0); Immature Platelet Fraction Pct 8.5 % (0.9-11.2); Mean Corpuscular Hemoglobin 31.3 pg (26-34); Mean Corpuscular Volume 94.6 fl (80-100); Mean Platelet Volume 10.7 fl (7.4-10.4); Red Cell Distribution Width 18.4 % (11.5-14.5); White Blood Count 23.6 K/mm3 (4.5-10.0)
[2019-11-30 06:08] LABS: Platelet Count Result 22 k/mm3 (150-375)
[2019-11-30] MEDS: LEVOTHYROXINE SODIUM 100 MCG TABLET PO (06:13)
[2019-11-30 06:19] LABS: Anion Gap 4 mmol/L (8-16); Blood Urea Nitrogen 32 mg/dL (9-20); Calcium 8.5 mg/dL (8.4-10.2); Carbon Dioxide 29 mmol/L (22-30); Chloride 104 mmol/L (98-107); Estimated CRCL calculation 52 ml/min; Estimated Glomerular Filt Rate > 60; Glucose 120 mg/dL (75-110); Sodium 137 mmol/L (137-145)
[2019-11-30] MEDS: amLODIPine BESYLATE 5 MG TABLET 10 MG PO (08:44)
[2019-11-30] MEDS: BETAMETHASONE/CLOTRIMAZOLE CR 45 GM TUBE 1 APPLIC TOPICAL ×2 (08:44→20:33)
[2019-11-30] MEDS: FUROSEMIDE 40 MG TABLET PO (08:45)
[2019-11-30] MEDS: methylPREDNISolone SOD SUCC 40 MG VIAL 30 MG IV PUSH ×2 (08:45→20:32)
[2019-11-30] MEDS: CHOLECALCIFEROL 1,000 UNITS TABLET 1000 UNITS PO (08:45)
[2019-11-30] MEDS: POTASSIUM CHLORIDE 20 MEQ TABLET.ER PO (08:46)
[2019-11-30] MEDS: MULTIVITAMINS THERAPEUTIC TAB (*BKC) 1 TABLET PO (08:46)
[2019-11-30] MEDS: TIMOLOL MALEATE 0.5% OP SOLN 5 ML BOTTLE 1 DROP RIGHT EYE ×2 (08:46→20:33)
[2019-11-30] MEDS: PANTOPRAZOLE SODIUM IV 40 MG VIAL IV PUSH (08:46)
[2019-11-30] MEDS: TAMSULOSIN HCL 0.4 MG CAPSULE PO (08:46)
[2019-11-30] MEDS: diphenhydrAMINE HCl CAP 25 MG CAPSULE PO (10:30)
[2019-11-30] MEDS: PREMIXIV IVPB (10:31)
[2019-11-30] MEDS: IMMUNE GLOBULIN IVPB (10:31)
--- NOTE | 2019-11-30 13:39 | PM.IMPN ---
Progress Note: A&P Assessment and Plan (1) Blood in stool: Code(s): K92.1 - Melena Status: Acute Assessment and Plan: No further rectal bleeding, pt remain hemodynamically stable (2) Thrombocytopenia: Code(s): D69.6 - Thrombocytopenia, unspecified Status: Acute Assessment and Plan: Pt seen by oncology Iv steroids have been started and iv immunoglobulin hold ibrutinib and any blood thinners monitor plts (3) Severe anemia: Code(s): D64.9 - Anemia, unspecified Status: Acute Assessment and Plan: Pt is sp blood transfusion improved to hb 7 continue to monitor hold ibrutinib and any blood thinners (4) CLL (chronic lymphocytic leukemia): Code(s): C91.10 - Chronic lymphocytic leukemia of B-cell type not having achieved remission Status: Acute Assessment and Plan: Dr Arriaga and Bruno consulted, follow recommendations Subjective Date/time seen: 11/30/19 13:39 Interval history: 79 year old male admitted with 3 days of rectal bleeding. Pts has a history of CLL not in remission. Pt seen by GI and oncology. Steroids iv ordered already by oncology. And pt has already received blood transfusion. No further bleeding reported. Plts improving slowly at 22. hb is 7. Pt has been started on immunoglobulin by oncology Review of Systems Review of Systems: All systems reviewed & are unremarkable except as noted in HPI and below Gastrointestinal: Gastrointestinal: Denies abdominal pain and Denies hematochezia Exam Const: General: anxious and other HENMT: Head: normocephalic Eyes: General: appearance normal, both eyes and all related structures Pupils: Equal, round and reactive pupils present Neck: Neck: supple Chest: Chest palpation & inspection: normal inspection of the chest Resp: Effort & Inspection: normal respiratory effort Auscultation: clear to auscultation bilaterally Cardio: Jugular venous distension: no JVD Rhythm: regular rhythm Heart sounds: S1 normal heart sound present and S2 normal heart sound present GI: Inspection: normal to inspection Auscultation: normal bowel sounds Skin: General skin exam: normal color and dry skin Other: Petechial rash on back and stomach, top of scalp Neuro: Cranial nerves: Yes CN's II-XII intact bilaterally and Yes Equal, round and reactive pupils present Cognition (Neuro): normal cognition Speech: normal speech Motor exam (neuro): 5/5 motor strength present throughout Extrem: General: normal to inspection Psych: Appearance: grossly normal Mental Status: mental status grossly normal Objective Data Vital Signs Vital Signs: Vital Signs - 24 hr 11/29/19 13:54 11/29/19 22:00 11/30/19 06:00 Temperature 36.8 C 36.7 C 36.7 C Pulse Rate 71 65 69 Respiratory Rate 16 18 20 Blood Pressure 142/53 H 130/55 L 128/58 L Pulse Oximetry 93 93 91 Intake/Output Intake/Output: Intake & Output 11/27/19 11/28/19 11/29/19 11/30/19 23:59 23:59 23:59 23:59 Intake Total 2045 1270 2190 800 Output Total 2400 2400 1850 1300 Balance -355 -1130 340 -500 Meds/Results Medications: Active Medications Generic Name Dose Route Start Last Admin Trade Name Freq PRN Reason Stop Dose Admin Amlodipine Besylate 10 mg 11/27/19 09:00 11/30/19 08:44 Norvasc PO 10 mg DAILY MARLEEN Administration Clotrimazole 1 applic 11/27/19 21:00 11/30/19 08:44 Lotrisone Cream TOPICAL 1 applic Q12HR MARLEEN Administration Fenofibrate 48 mg 12/01/19 09:00 Tricor PO DAILY MARLEEN Furosemide 40 mg 11/27/19 09:00 11/30/19 08:45 Lasix Tablet PO 40 mg QAM MARLEEN Administration Immune Globulin 40 gm/ Immune 450 mls @ 27.45 mls/hr 11/30/19 09:50 11/30/19 10:31 Globulin 5 gm/ N/A IVPB 12/01/19 02:13 27.5 mls/hr ONCE ONE Administration Levothyroxine Sodium 100 mcg 11/28/19 06:30 11/30/19 06:13 Synthroid PO 100 mcg DAILY@0630 MARLEEN Administration Loratadine 10 mg 11/27/19 11:5
[2019-11-30 14:00] VITALS: BP 139/50; PULSE 64; RESP 18; TEMP 36.7; O2SAT 93
--- NOTE | 2019-11-30 16:01 | WPDONCPN ---
Progress Note: A&P Assessment and Plan (1) CLL (chronic lymphocytic leukemia): Code(s): C91.10 - Chronic lymphocytic leukemia of B-cell type not having achieved remission Status: Acute Assessment and Plan: 1. Absolute Lymphocyte count improved 2. WBC decreased 3. partial response / remission with CLL from Imbruvica 4. After discharge, patient instructed to hold his Imbruvica indefinitely (2) Thrombocytopenia: Code(s): D69.6 - Thrombocytopenia, unspecified Status: Acute Assessment and Plan: 1. ? 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 No DIC 3. CBC daily 4. Tomorrow if plt count continues to remain > 20k, he can be discharged 5. I recommend after discharge the following meds: Prednisone 60 mg daily PPI daily acyclovir 400 mg daily 6. f/u with me in 1 week at my main office with CBC (3) Severe anemia: Code(s): D64.9 - Anemia, unspecified Status: Acute Assessment and Plan: 1. No signs of hemolysis 2. NO further signs of GI bleeding 3. CBC in AM 4. If Hb > 7.5, he can be discharged with FeSO4 daily Review of Systems Review of Systems All systems reviewed & are unremarkable except as noted in HPI and below Constitutional Constitutional: Denies anorexia, Reports fatigue, Denies fever(s), Denies malaise, Denies night sweats, Reports snoring, Denies weakness and Denies weight loss Eyes Eyes: Denies blurry vision ENT Denies dysphagia, Denies epistaxis, Denies mouth lesions, Denies mouth pain, Denies odynophagia, Denies disequilibrium and Denies sore throat Cardiovascular Cardiovascular: Denies chest pain, Reports pedal edema, Reports leg edema, Reports dyspnea and Reports dyspnea on exertion Respiratory Respiratory: Denies cough, Reports dyspnea, Reports dyspnea on exertion and Reports snoring Gastrointestinal Gastrointestinal: Denies abdominal pain, Denies melena, Denies constipation, Denies dysphagia, Denies diarrhea, Denies nausea, Denies odynophagia and Denies vomiting Genitourinary Genitourinary: Denies hematuria and Denies dysuria Musculoskeletal Musculoskeletal: Reports abnormal gait, Denies myalgias, Denies arthralgias and Denies muscle weakness Integumentary/Breasts Skin/Breast: Denies rash and Reports unusual bruising Neurologic Reports abnormal gait, Denies confusion, Denies disequilibrium and Denies weakness Psychiatric Psychiatric: Denies anxiety, Denies confusion and Denies depression Endocrine Endocrine: Denies fatigue Hematologic/Lymphatic Hematologic/Lymphatic: Denies easy bleeding, Denies easy bruising and Denies lymphadenopathy Exam Const: General: healthy appearing, no acute distress, well developed, alert and awake; No confusion Nutritional Appearance: well nourished Orientation/consciousness: patient oriented x3 and No confusion HENMT: Head: normocephalic and atraumatic Ears: external ears normal and TM's normal bilaterally General nose exam: Normal external nose present and Normal nares present Face and sinus: sinuses nontender Mouth: Yes Normal oral and palatal mucosa present and Yes moist mucous membranes Teeth and gingiva: dentition normal Throat: uvula midline Eyes: General: appearance normal, both eyes and all related structures Conjunctivae: conjunctivae normal Pupils: Equal, round and reactive pupils present EOM: EOMs intact bilaterally Neck: Neck: full ROM, no lymphadenopathy and supple Chest: Chest palpation & inspection: normal inspection of the chest Resp: Effort & Inspection: normal respiratory effort Auscultation: clear to auscultation bilaterally and crackles Cardio: Rate: regular rate Rhythm: regular rhythm Heart sounds: S1 normal heart sound present and S2 normal heart sound present Peripheral pulses: Peripheral pulses 2+ throughout GI: Inspection: normal to inspection Auscultation: normal bowel sounds and normoactive bowel sounds Rectal Exam: deferred : General: Yes no CVA tenderness Back/Spine/Pelvis: Back: no CVA tendernes
[2019-11-30 18:05] LABS: Hematocrit 23.2 % (42.0-52.0); Hemoglobin 7.5 g/dL (14.0-18.0); Immature Platelet Fraction Pct 7.3 % (0.9-11.2); Mean Corpuscular HGB Conc 32.3 g/dl (32-36); Mean Corpuscular Hemoglobin 30.7 pg (26-34); Mean Corpuscular Volume 95.1 fl (80-100); Mean Platelet Volume 11.3 fl (7.4-10.4); Red Blood Count 2.44 M/mm3 (4.6-6.20); Red Cell Distribution Width 18.4 % (11.5-14.5); White Blood Count 22.7 K/mm3 (4.5-10.0)
[2019-11-30 18:25] LABS: Platelet Count Result 23 k/mm3 (150-375)
[2019-11-30 22:00] VITALS: BP 134/54; PULSE 72; RESP 16; TEMP 37.6; O2SAT 94
[2019-12-01 06:00] VITALS: BP 138/57; PULSE 72; RESP 16; TEMP 37.4; O2SAT 94
[2019-12-01 06:21] LABS: Hematocrit 23.2 % (42.0-52.0); Hemoglobin 7.5 g/dL (14.0-18.0); Immature Platelet Fraction Pct 7.5 % (0.9-11.2); Mean Corpuscular HGB Conc 32.3 g/dl (32-36); Mean Corpuscular Hemoglobin 30.9 pg (26-34); Mean Corpuscular Volume 95.5 fl (80-100); Mean Platelet Volume 12.3 fl (7.4-10.4); Red Blood Count 2.43 M/mm3 (4.6-6.20); White Blood Count 23.2 K/mm3 (4.5-10.0)
[2019-12-01] MEDS: LEVOTHYROXINE SODIUM 100 MCG TABLET PO (06:28)
[2019-12-01 06:37] LABS: Anion Gap 5 mmol/L (8-16); Blood Urea Nitrogen 37 mg/dL (9-20); Calcium 8.3 mg/dL (8.4-10.2); Carbon Dioxide 28 mmol/L (22-30); Chloride 103 mmol/L (98-107); Estimated CRCL calculation 52 ml/min; Estimated Glomerular Filt Rate > 60; Glucose 115 mg/dL (75-110); Potassium 3.9 mmol/L (3.4-5.0); Sodium 136 mmol/L (137-145)
[2019-12-01 06:40] LABS: Platelet Count Result 22 k/mm3 (150-375)
[2019-12-01 08:00] VITALS: PULSE 72; RESP 16; O2SAT 94
[2019-12-01] MEDS: amLODIPine BESYLATE 5 MG TABLET 10 MG PO (09:04)
[2019-12-01] MEDS: POTASSIUM CHLORIDE 20 MEQ TABLET.ER PO (09:05)
[2019-12-01] MEDS: MULTIVITAMINS THERAPEUTIC TAB (*BKC) 1 TABLET PO (09:05)
[2019-12-01] MEDS: FUROSEMIDE 40 MG TABLET PO (09:05)
[2019-12-01] MEDS: FENOFIBRATE,MICRONIZED 48 MG TABLET PO (09:05)
[2019-12-01] MEDS: CHOLECALCIFEROL 1,000 UNITS TABLET 1000 UNITS PO (09:05)
[2019-12-01] MEDS: TAMSULOSIN HCL 0.4 MG CAPSULE PO (09:05)
[2019-12-01] MEDS: methylPREDNISolone SOD SUCC 40 MG VIAL 30 MG IV PUSH (09:06)
[2019-12-01] MEDS: BETAMETHASONE/CLOTRIMAZOLE CR 45 GM TUBE 1 APPLIC TOPICAL (09:06)
[2019-12-01] MEDS: TIMOLOL MALEATE 0.5% OP SOLN 5 ML BOTTLE 1 DROP RIGHT EYE (09:06)
[2019-12-01] MEDS: PANTOPRAZOLE SODIUM IV 40 MG VIAL IV PUSH (09:06)
--- NOTE | 2019-12-01 11:31 | PM.DS ---
DS: Admitting Diagnosis Admitting Diagnosis Admitting Diagnosis: Severe anemia DS: Discharge Diagnosis Discharge Diagnosis (1) Blood in stool: Code(s): K92.1 - Melena Status: Acute Assessment and Plan: No further rectal bleeding, pt remain hemodynamically stable ok to dischrage on ferrous sulphate (2) Thrombocytopenia: Code(s): D69.6 - Thrombocytopenia, unspecified Status: Acute Assessment and Plan: Pt seen by oncology. Pt had IV steroids in the hospital and was started on iv immunoglobulin. hold ibrutinib and any blood thinners, rpt CBC in 1 week before office visit (3) Severe anemia: Code(s): D64.9 - Anemia, unspecified Status: Acute Assessment and Plan: Pt is sp blood transfusion improved to hb 7.5, continue to monitor hold ibrutinib and any blood thinners (4) CLL (chronic lymphocytic leukemia): Code(s): C91.10 - Chronic lymphocytic leukemia of B-cell type not having achieved remission Status: Acute Assessment and Plan: Dr Arriaga and Bruno consulted, follow recommendations. Pt discharged on prednisone, acyclovir and protonix with holding ibrutinib indefinitely DS: Summary Time Spent with Patient Time attestation: Total time spent providing and/or coordinating discharge services: 40 minutes on day of dischrage Exam Const: General: anxious and other HENMT: Head: normocephalic Eyes: General: appearance normal, both eyes and all related structures Pupils: Equal, round and reactive pupils present Neck: Neck: supple Chest: Chest palpation & inspection: normal inspection of the chest Resp: Effort & Inspection: normal respiratory effort Auscultation: clear to auscultation bilaterally Cardio: Jugular venous distension: no JVD Rhythm: regular rhythm Heart sounds: S1 normal heart sound present and S2 normal heart sound present GI: Inspection: normal to inspection Auscultation: normal bowel sounds Skin: General skin exam: normal color and dry skin Other: Petechial rash on back mild Neuro: Cranial nerves: Yes CN's II-XII intact bilaterally and Yes Equal, round and reactive pupils present Cognition (Neuro): normal cognition Speech: normal speech Motor exam (neuro): 5/5 motor strength present throughout Extrem: General: normal to inspection Psych: Appearance: grossly normal Mental Status: mental status grossly normal DS: Data Data Completed and Pending Labs on day of discharge: Labs from last 24 hours 12/01/19 12/01/19 11/30/19 05:52 05:52 17:27 WBC 23.2 H 22.7 H RBC 2.43 L 2.44 L Hgb 7.5 L 7.5 L Hct 23.2 L 23.2 L MCV 95.5 95.1 MCH 30.9 30.7 MCHC 32.3 32.3 RDW 18.0 H 18.4 H Plt Count 22 L* 23 L* MPV 12.3 H 11.3 H % Immature Plt Fraction 7.5 7.3 Sodium 136 L Potassium 3.9 Chloride 103 Carbon Dioxide 28 Anion Gap 5 L BUN 37 H Creatinine 1.10 Estim Creat Clear Calc 52 Estimated GFR > 60 Glucose 115 H Calcium 8.3 L Stl Occult Blood (IFOB) 11/30/19 13:18 WBC RBC Hgb Hct MCV MCH MCHC RDW Plt Count MPV % Immature Plt Fraction Sodium Potassium Chloride Carbon Dioxide Anion Gap BUN Creatinine Estim Creat Clear Calc Estimated GFR Glucose Calcium Stl Occult Blood (IFOB) Pending Discharge Plan Discharge Attending physician on discharge: Preeti Mckeon Consulting providers: Armando Carr ; Avel [place] Discharging Clinician: Preeti Mckeon Anticipated Discharge Date/Time: 12/01/19 11:22 Patient Disposition: Home, Self-Care Activity: as tolerated Diet: regular Discharge Instructions: Prednisone 60 mg daily PPI daily acyclovir 400 mg daily ferrous sulphate daily no ibrutinib Patient Instructions: Antibiotic Form, Anemia (DC) Stand Alone Forms: General Discharge Information Follow-up/Referrals: Armando Carr DO [Physician] - (one w
[2019-12-01 14:13] LABS: IFOB Positive Control Positive; Immunochemical Fecal Occult Bl Positive (N)
[2019-12-03 17:12] LABS: Haptoglobin 155 mg/dL (43-212)
== END 2019-12-01 13:10 | disposition home or self-care (01) | DRG 378 ==
LOC: ANHED 20:32 → ANH3MEDSUR 21:17
PROVIDERS: Internal Medicine Medical Oncology; Admitting Provider Internal Medicine; Emergency Provider Emergency Medicine; PCP Family Medicine; Visit Provider Family Medicine
DX: K92.1 Melena (principal); C91.10 Chronic lymphocytic leukemia of B-cell type not having achieved remission; D64.89 Other specified anemias; D69.59 Other secondary thrombocytopenia; D63.0 Anemia in neoplastic disease; T45.1X5A Adverse effect of antineoplastic and immunosuppressive drugs, initial encounter; Z87.891 Personal history of nicotine dependence
CPT/HCPCS: 36415; 36430; 80048; 80053; 82274; 82607; 82728; 82747; 83010; 83540; 83550; 83615; 84436; 84443; 85014; 85018; 85025; 85027; 85046; 85055; 85384; 85610; 85730; 86850; 86880; 86900; 86901; 86923; 96374; 96375; 96376; 99285; A9270; C9113; G0378; J1459; J2920; J2930; J7050; P9016

== ENCOUNTER 2020-01-02 13:42 | Outpatient (CLI) | payer MEDICARE, SELFPAY ==
--- NOTE | ~2020-01-02 | CT_ITS ---
EXAMINATION: CT chest wo con DATE: 01/02/2020 14:22 INDICATION: Thrombocytopenia. Chronic lymphocytic leukemia. TECHNIQUE: Computed tomography (CT) of the chest was performed without intravenous contrast. The dose -length product was 208.40 mGy-cm. Automated exposure control and iterative reconstruction technique were employed. COMPARISON: None FINDINGS: There is a 2.8 x 2.6 cm cavitary mass right upper lobe with nodular wall, image 36. Mild em physema. There is a 3 mm right apical nodule. There are scattered calcified granulomas. 3 mm right up per lobe nodule, image 31. There is a groundglass density in the left upper lobe, image 23, ill-defin ed. Left lower lobe atelectasis. No endobronchial lesions. There are nonenlarged mediastinal lymph nodes, likely reactive. No significant pleural or pericardial effusion. There is atherosclerosis of the aorta and coronary arteries. There are gallstones. There i s mild thickening of the adrenal glands, nonspecific. Spleen appears enlarged, although incompletely visualized. No acute osseous abnormality. IMPRESSION: 1. Right upper lobe cavitary nodule measuring 2.8 x 2.6 cm with nodular wall thickening. There are ad ditional smaller nodules throughout both lungs measuring 3 mm or less. Differential diagnosis include s postinfectious/inflammatory etiologies versus malignancy. Consider correlation with pet/CT scan. 2: Probable splenomegaly, although spleen incompletely visualized. 3: Cholelithiasis. Reviewed, dictated and finalized at location A. IMPRESSION: 1. Right upper lobe cavitary nodule measuring 2.8 x 2.6 cm with nodular wall th ickening. There are additional smaller nodules throughout both lungs measuring 3 mm or less. Differential diagnosis includes postinfectious/inflammatory etiol ogies versus malignancy. Consider correlation with pet/CT scan. 2: Probable splenomegaly, although spleen incompletely visualized. 3: Cholelithiasis.
== END 2020-01-02 13:43 | disposition home or self-care (01) ==
PROVIDERS: PCP Family Medicine; Visit Provider Family Medicine
DX: C91.10 Chronic lymphocytic leukemia of B-cell type not having achieved remission (principal); D69.6 Thrombocytopenia, unspecified; R93.89 Abnormal findings on diagnostic imaging of other specified body structures; R91.1 Solitary pulmonary nodule; K80.20 Calculus of gallbladder without cholecystitis without obstruction
CPT/HCPCS: 71250

== ENCOUNTER 2022-08-23 13:15 | Outpatient (RCR) | payer MEDICARE, SELFPAY ==
--- NOTE | 2022-08-05 16:26 | OPREHPOC ---
Outpatient Therapy Plan of Care This is a Multidisciplinary Plan of Care that may contain components documented by all disciplines (PT, OT, and ST.) PT Problem 1 PT Problem #1 Knowledge Deficit PT Goal 1 Goal Pt will verbalize understancing of therapy and effects on deficits Target Visit 8 PT Goal 2 Goal Pt will be independent in home exercise program Target Visit 16 PT Problem 2 PT Problem #2 Pain PT Goal 1 Goal Pt will report worst pain at 2/10 Target Visit 8 PT Goal 2 Goal Pt will report resolution of pain with activity Target Visit 16 PT Problem 3 PT Problem #3 Impaired Range of Motion PT Goal 1 Goal Pt will demo ROM lumbar spine 75% in all tested planes Target Visit 16 PT Goal 2 Goal Pt will demo straight leg raise of 45 degrees or greater Target Visit 16 PT Problem 4 PT Problem #4 Impaired Strength PT Goal 1 Goal Pt will demo overall strength of 4+/5 in all tested planes Target Visit 16
--- NOTE | 2022-08-05 16:26 | PTOPEVAL1 ---
Assessment and note entered by Swetha Hernandez, PT Evaluation Information Assessment Status Evaluation Diagnosis Dorsalgia unspec, Oth symptoms and signs involving the musculoskeletal syst Onset June 2022 Subjective Information In June started complaining of not being freya to walk very far without having to sit down. Needed to sit because of weakness in legs and stiffness in back and legs. Reports Shopping leaning on the cart seems to relieve discomfort Is able to walk about 20 minutes before needing to sit Reported Pain Level Pain Score 0: Self Report Assessment PT Clinical Summary Pt presents with c/o dorsalgia and weakness with walking. Pt states his prior level of function was to be able to walk when shopping at [employer] but recently is not able to walk very far before needing to sit due to leg weakness and back/leg stiffness. Pt demo's decreased ROM of the lumbar spine, (+) neural tension test bilat LEs, improvement in symptoms with lumbar distraction, decreased strength and flexibility overall. Pt will benefit from therapy to address deficits and improve function and return to prior level. Plan of Care Interventions Gait Training,Hot Pack/Cold Pack,Manual Therapy, Mechanical Traction,Neuro Re-education,Therapeutic Activities,Therapeutic Exercise PT Services Indicated Yes Treatment Frequency and 2x weekly x 8 weeks Duration These treatments will address the objective and functional deficits as defined above. The patient will be advanced safely and appropriately in order for the patient to progress towards his/her prior level of function. Additional exercises will be introduced and as well as a comprehensive home exercise program upon discharge, if needed, ?to ensure carryover of functional gains achieved in the clinic. This treatment plan has been reviewed and agreement upon by the patient.
--- NOTE | 2022-09-01 15:07 | PTOPDC ---
Assessment and note entered by Swetha Hernandez, PT Assessment Status Discharge - Pt Not Present Diagnosis Dorsalgia unspec, Oth symptoms and signs involving the musculoskeletal syst Onset June 2022 Subjective Information In June started complaining of not being freya to walk very far without having to sit down. Needed to sit because of weakness in legs and stiffness in back and legs. Reports Shopping leaning on the cart seems to relieve discomfort Is able to walk about 20 minutes before needing to sit Assessment PT Clinical Summary Pt attended 5 therapy sessions including evaluation. Was provided initial home program he states he did some of the time. Pain in back continued depending on what he was doing. Pt's called on 08/30/22 and stated they were to busy with patient's other co-morbidities and would need to cease his therapy. Pt's educated on returning to therapy when they were able. Thus is being discharged due to patient request.
== END 2022-09-01 15:10 | disposition home or self-care (01) ==
LOC: ANHHIPT 13:15
PROVIDERS: PCP Family Medicine; Visit Provider Nurse Practitioner Family
DX: M54.9 Dorsalgia, unspecified (principal); R29.898 Other symptoms and signs involving the musculoskeletal system
CPT/HCPCS: 97110; 97161

== ENCOUNTER 2023-11-07 11:47 | Emergency (ER) | payer MEDICARE, SELFPAY ==
--- NOTE | ~2023-11-07 | CT_ITS ---
EXAMINATION: CT diagnostic chest wo con DATE: 11/07/2023 14:44 INDICATION: follow up XR, evaluate for pneumothorax TECHNIQUE: Computed tomography (CT) of the chest was performed without intravenous contrast. Addition al 3D reconstructions utilizing coronal maximum intensity projection (MIP) were performed. Automated exposure control and iterative reconstruction technique were employed. The dose-length product was 17 0.11 mGy-cm. COMPARISON: Chest radiograph dated 11/07/2023 FINDINGS: There is a large right hydropneumothorax approximately one third gas component and two thirds fluid c omponent. Near complete collapse of the right lung. Fluid in the right-sided bronchi with air-fluid l evel at the distal right mainstem bronchus and bronchus intermedius. Underlying pneumonia or malignan cy not excludable. Mild dependent atelectasis in the left lower lobe. There are multiple small bilate ral calcified pulmonary nodules, greater in the right lung along with calcified right hilar and media stinal lymph nodes consistent with old granulomatous disease. Heart size is normal. Atherosclerotic c oronary artery calcification is. No pericardial effusion. Thoracic aorta is normal in caliber. No pat hologically enlarged thoracic lymphadenopathy. Multiple small gallstones in the dependent aspect of t he otherwise normal gallbladder. Single diverticulum at the splenic flexure the colon without adjacen t inflammation presenting to suggest diverticulitis. Visualized upper abdomen is otherwise unremarkab le. Moderate lower cervical and mild to moderate thoracic spondylosis. Chronic likely physiologic mil d anterior wedging at T12 and L1.. IMPRESSION: 1. Large right hydropneumothorax with near complete collapse of the right lung. Underlying pneumonia or malignancy not excludable. Reviewed, dictated and finalized at location A.
--- NOTE | ~2023-11-07 | XR_ITS ---
Portable chest x-ray Comparison: None Clinical History: Hip fracture Findings: There is large right pleural effusion or possibly hydropneumothorax. There is probable rig ht lower lobe atelectasis. Left lung clear. Cardiomediastinal silhouette is stable. Bones and soft t issues are unremarkable. Impression: Large right pleural effusion versus possibly hydropneumothorax, some relative lucency at the lung bas e. Consider chest CT to better evaluate for pneumothorax component, as indicated. Right lower lobe atelectasis. Clear left lung. Reviewed, dictated and finalized at location M. Impression: Large right pleural effusion versus possibly hydropneumothorax, some relative l ucency at the lung base. Consider chest CT to better evaluate for pneumothorax component, as indicated. Right lower lobe atelectasis. Clear left lung.
--- NOTE | ~2023-11-07 | XR_ITS ---
AP view of the pelvis and AP and lateral views of the right hip Clinical history: Pain Findings: There is acute subcapital fracture of the right femoral neck, displaced.. Osseous alignment is anatomic. Bilateral hip and SI joint spaces are preserved. Soft tissues are unremarkable. Impression: Acute, mildly displaced subcapital fracture of the right femoral neck. Reviewed, dictated and finalized at [facility]. Impression: Acute, mildly displaced subcapital fracture of the right femoral neck.
[2023-11-07 11:49] VITALS: PULSE 76; RESP 20; TEMP 36.6; O2SAT 94
--- NOTE | 2023-11-07 12:23 | PC.NURSE ---
Pt c/o increase pain, weakness to right hip & right leg. Pt reports unable to bear weight today or change positions without excruciating pain. reports oncologist informed them of hole in right femur did not prescribed any pain med. Right hip & right leg. CMS intact. Pt denies any falls.
[2023-11-07 12:28] LABS: Basophils Percent Auto 0.2 % (0.2-1.2); Eosinophils Percent Auto 0.1 % (0-4.4); Hematocrit 35.5 % (42.0-52.0); Hemoglobin 11.6 g/dL (14.0-18.0); Immature Granulocyte Absolute 0.18 K/mm3 (0.00-0.031); Immature Granulocyte Percent A 2.1 % (0-0.5); Lymphocytes Absolute Auto 0.57 K/mm3 (0.9-3.2); Lymphocytes Percent Auto 6.8 % (18.3-44.2); Mean Corpuscular HGB Conc 32.7 g/dl (32-36); Mean Corpuscular Hemoglobin 35.7 pg (26-34); Mean Corpuscular Volume 109.2 fl (80-100); Mean Platelet Volume 8.6 fl (7.4-10.4); Monocytes Absolute Auto 0.5 K/mm3 (0.1-0.6); Monocytes Percent Auto 6.3 % (2.6-8.5); Neutrophils Absolute Auto 7.1 K/mm3 (1.3-6.7); Neutrophils Percent Auto 84.5 % (45.5-73.1); Platelet Count Result 155 k/mm3 (150-375); Red Blood Count 3.25 M/mm3 (4.6-6.20); White Blood Count 8.4 K/mm3 (4.5-10.0)
[2023-11-07 12:39] LABS: Alanine Aminotransferase 14 U/L (6-50); Albumin Level 3.8 g/dL (3.5-5.1); Alkaline Phosphatase 81 U/L (38-126); Anion Gap 7 mmol/L (4-12); Aspartate Amino Transferase 30 U/L (17-59); Bilirubin,Total 0.7 mg/dL (0.2-1.3); Blood Urea Nitrogen 18 mg/dL (9-20); Calcium 8.8 mg/dL (8.4-10.2); Carbon Dioxide 32 mmol/L (22-30); Chloride 93 mmol/L (98-107); Estimated CRCL calculation 67 ml/min; Estimated Glomerular Filt Rate > 60; Glucose 106 mg/dL (65-110); Potassium 3.5 mmol/L (3.4-5.0); Sodium 132 mmol/L (137-145)
[2023-11-07 12:43] LABS: INR 1.1
[2023-11-07 12:44] LABS: Partial Thromboplastin Time 29.8 Seconds (22.3-36.8)
--- NOTE | 2023-11-07 13:13 | ED.EXTPRO ---
HPI - Extremity Problem General Chief complaint: Extremity Problem,Nontraumatic <Ger Noland PA-C - Last Filed: 11/07/23 18:28> Stated complaint: hole in leg , can't walk <Ger Noland PA-C - Last Filed: 11/07/23 18:28> Time Seen by Provider: 11/07/23 12:59 <Ger Noland PA-C - Last Filed: 11/07/23 18:28> Source: patient <Ger Noland PA-C - Last Filed: 11/07/23 18:28> Mode of arrival: ambulatory <OZ Gonzales Last Filed: 11/07/23 18:28> Limitations: no limitations <Ger Noland PA-C - Last Filed: 11/07/23 18:28> History of Present Illness HPI Narrative: This is a an 83-year-old male With PMH of CLL, right lung cancer, HTN, hypothyroid, CKD currently undergoing regular chemotherapy who presents to the ED for chief complaint of right hip pain for the past week or so. Reports that he was seen in another facility last week and received x-rays and CT scan showing a hole in the hip. patient states that the pain has increased since last week and he is now unable to walk which is abnormal for him. He tried to use a walker this week but has been unable to bear weight or ambulate at all. Patient's family states they are unable to help take care of him in this state. He denies fevers, chills, nausea, vomiting, back pain, chest pain, shortness of breath, cough. <Ger Noland PA-C - Last Filed: 11/07/23 18:28> Related Data Home medications: Home Medications Medication Instructions Recorded Confirmed tafluprost (PF) 0.0015 % eye drops 1 drop RIGHT EYE HS 05/21/19 02/07/23 in a dropperette (Zioptan (PF)) tamsulosin 0.4 mg capsule 0.4 mg PO DAILY 11/26/19 02/07/23 acetaminophen 500 mg capsule 1,000 mg PO Q6H PRN 07/14/22 02/07/23 cholecalciferol (vitamin D3) 10 10 mcg PO DAILY 07/14/22 02/07/23 mcg (400 unit) capsule multivit and minerals-ferrous 15 ml PO DAILY 07/14/22 02/07/23 gluconate 9 mg iron/15 mL oral liquid (Centrum) timolol maleate 0.5 % once daily 1 drp EACH EYE .morning 07/14/22 02/07/23 eye drops triamcinolone acetonide 0.1 % 1 applic topical BID 07/14/22 02/07/23 topical cream <Ger Noland PA-C - Last Filed: 11/07/23 18:28> Allergies/Adverse reactions: Allergies Allergy/AdvReac Type Severity Reaction Status Date / Time allopurinol Allergy Severe Rash Verified 11/07/23 13:35 doxycycline AdvReac Severe Dizziness Verified 11/07/23 13:35 <Ger Noland PA-C - Last Filed: 11/07/23 18:28> Review of Systems Review of Systems: All systems as dictated in HPI <Ger Noland PA-C - Last Filed: 11/07/23 18:28> [facility] Past Medical History Medical History: Medical History Blood in stool CLL (chronic lymphocytic leukemia) Hypertension <Ger Noland PA-C - Last Filed: 11/07/23 18:28> Family History Family History: Family History Sibling Family history of lung cancer Family history of malignant neoplasm of brain Father Family history of coronary artery disease Family history of cardiovascular disease <Ger Noland PA-C - Last Filed: 11/07/23 18:28> Social History Social History: Social History Smoking status: Former smoker Second hand tobacco smoke exposure: Yes (Son smokes) Smoking end date: 03/07/03 Alcohol intake: never Substance use: never Substance use type: does not use Living arrangements: with family Occupation/Education: retired Gender identity (if verbalized by the patient): Male Spiritual care concerns: No Agree to blood products: Yes <Ger Noland PA-C - Last Filed: 11/07/23 18:28> Exam Narrative: GENERAL: Well-appearing, well-nourished, and in no acute distress. HEAD: Normocephalic, atraumatic. EYES: PERRLA and EOMI. ENT: Nares clear, no rhinorrhea or epistaxis. Mu
[2023-11-07 13:23] LABS: Platelet Estimate Adequate (Adequate)
[2023-11-07 13:24] LABS: Anisocytosis 1+; Macrocytosis 1+ (NORMAL); Schistocytes None Seen
[2023-11-07] MEDS: ONDANSETRON INJ 4 MG/2 ML VIAL IV PUSH (13:36)
[2023-11-07] MEDS: MORPHINE SULFATE (*CRX) 4 MG/ML INJ IV PUSH ×2 (13:38→17:31)
[2023-11-07 13:43] VITALS: O2SAT 96
--- NOTE | 2023-11-07 13:44 | PC.NURSE ---
Pt resting SaO2 dropping into 80's. Pt remains alert able to take deep breaths. Oxygen @ 2L NC applied SaO2 increased to 97%. reports pt is oxygen at home as needed at 1L.
[2023-11-07 13:52] VITALS: BP 145/67; PULSE 76; RESP 18; TEMP 36.6; O2SAT 97
--- NOTE | 2023-11-07 14:33 | PC.NURSE ---
Tiffany with [facility] transfer line called pt info & assessment given. [facility] to call back with bed assignment
--- NOTE | 2023-11-07 16:32 | PC.NURSE ---
Clarified diet order with Ger SMITH. Dinner tray ordered
[2023-11-07 17:06] VITALS: BP 144/63; PULSE 88; RESP 18; TEMP 36.6; O2SAT 98
--- NOTE | 2023-11-07 17:09 | PC.NURSE ---
Pt & informed of bed assignment at [facility] #[id number]. Both state understanding. Dinner tray given.
== END 2023-11-07 17:49 | disposition short-term general hospital (02) ==
LOC: ANHED 13:27
PROVIDERS: Student in an Organized Health Care Education/Training Program; Emergency Provider Physician Assistant; PCP Nurse Practitioner Family
DX: S72.011A Unspecified intracapsular fracture of right femur, initial encounter for closed fracture (principal); C91.10 Chronic lymphocytic leukemia of B-cell type not having achieved remission; E03.9 Hypothyroidism, unspecified; I12.9 Hypertensive chronic kidney disease with stage 1 through stage 4 chronic kidney disease, or unspecified chronic kidney disease; N18.9 Chronic kidney disease, unspecified; Z87.891 Personal history of nicotine dependence; X58.XXXA Exposure to other specified factors, initial encounter
CPT/HCPCS: 36415; 71045; 71250; 73502; 80053; 85025; 85610; 85730; 96374; 96375; 96376; 99285; J2270; J2405

== ENCOUNTER 2023-11-19 23:20 | Inpatient (IN) | payer MEDICARE, SELFPAY ==
--- NOTE | ~2023-11-19 | XR_ITS ---
EXAMINATION: XR chest 1V portable DATE: 11/22/2023 12:58 INDICATION: Dyspnea. TECHNIQUE: A single frontal view of the chest was obtained. COMPARISON: Chest single view 11/20/2023, chest CT 11/20/2023 FINDINGS: There is complete opacification of right hemithorax. Calcified right lung nodules are consi stent with old granulomatous disease. There are airspace opacities in left lung with a perihilar pred ominance. There is interstitial pattern in the left lung. No pneumothorax. The heart size is normal. IMPRESSION: 1. Worsened complete opacification of right lung, likely predominantly a large pleural effusion. 2. Stable left lung disease, consistent with moderate pulmonary edema or less likely pneumonia. Reviewed, dictated and finalized at location A. IMPRESSION: 1. Worsened complete opacification of right lung, likely predominantly a large pleural effusion. 2. Stable left lung disease, consistent with moderate pulmonary edema or less l ikely pneumonia.
--- NOTE | ~2023-11-19 | US_ITS ---
EXAMINATION: US thoracentesis DATE: 11/23/2023 10:59 INDICATION: pleural effusion TECHNIQUE: The procedure and its risks, benefits, and alternatives were discussed with the patient. P otential risks discussed included bleeding, infection, and pneumothorax. The patient understood the r isks and agreed to proceed. The skin was prepped and draped in sterile fashion. 1% lidocaine was used for local anesthesia. Under ultrasound guidance, a 5 Fr catheter with trochar was advanced into the right pleural effusion. Fluid was aspirated. The catheter was removed, and a dressing was applied. Th ere were no immediate complications. FINDINGS: Ultrasound images demonstrate a right pleural effusion and the catheter within the fluid. IMPRESSION: 1. Successful ultrasound-guided thoracentesis yielding 1000 mL of serosanguineous fluid. Reviewed, dictated and finalized at location A. IMPRESSION: 1. Successful ultrasound-guided thoracentesis yielding 1000 mL of serosanguine ous fluid.
--- NOTE | ~2023-11-19 | US_ITS ---
EXAMINATION: US thoracentesis DATE: 11/24/2023 14:31 INDICATION: pleural effusion TECHNIQUE: The procedure and its risks, benefits, and alternatives were discussed with the patient. P otential risks discussed included bleeding, infection, and pneumothorax. The patient understood the r isks and agreed to proceed. The skin was prepped and draped in sterile fashion. 1% lidocaine was used for local anesthesia. Under ultrasound guidance, a 5 Fr catheter with trochar was advanced into the right pleural effusion. Fluid was aspirated. The catheter was removed, and a dressing was applied. Th ere were no immediate complications. FINDINGS: Ultrasound images demonstrate a right pleural effusion and the catheter within the fluid. IMPRESSION: 1. Successful ultrasound-guided thoracentesis yielding 1000 mL of serosanguineous fluid. Reviewed, dictated and finalized at location A. IMPRESSION: 1. Successful ultrasound-guided thoracentesis yielding 1000 mL of serosanguine ous fluid.
--- NOTE | ~2023-11-19 | XR_ITS ---
EXAMINATION: XR chest 1V portable DATE: 11/26/2023 05:28 INDICATION: Right pleural effusion. TECHNIQUE: A single frontal view of the chest was obtained. COMPARISON: Chest single view 11/25/2023 FINDINGS: There is complete opacification of right hemithorax with rightward shift of the mediastinum . There are airspace and interstitial opacities in all left lung zones. No pneumothorax. The heart si ze is normal. IMPRESSION: 1. Stable complete opacification of right hemithorax with rightward shift of the mediastinum, likely a combination of atelectasis and pleural effusion. 2. Stable diffuse left lung disease, consistent with pulmonary edema versus pneumonia. Reviewed, dictated and finalized at location A. IMPRESSION: 1. Stable complete opacification of right hemithorax with rightward shift of th e mediastinum, likely a combination of atelectasis and pleural effusion. 2. Stable diffuse left lung disease, consistent with pulmonary edema versus pne umonia.
--- NOTE | ~2023-11-19 | CT_ITS ---
EXAMINATION: CTA chest PE protocol DATE: 11/20/2023 05:39 INDICATION: Dyspnea. Large right pleural effusion. TECHNIQUE: Computed tomography (CT) pulmonary angiogram of the chest was performed with 100 mL Omnipa que-350 intravenous contrast. Additional 3D reconstructions utilizing coronal maximum intensity proje ction (MIP) were performed. Automated exposure control and iterative reconstruction technique were em ployed. The dose-length product was 288.86 mGy-cm. COMPARISON: None FINDINGS: No pulmonary embolism. Persistent large right hydropneumothorax with decrease in size of the gas comp onent. Complete collapse of the right lower lobe and partial collapse of the right upper and middle l obes. There is an approximately 3 x 2 cm region of decreased enhancement within the collapsed right u pper lobe which does not extend to the periphery to suggest infarct and raises concern for either pne umonia or malignancy. There is a small posterior layering left pleural effusion with dependent atelec tasis in the left lung. Perihilar predominant groundglass opacities with some associated smooth septa l line thickening in the left lung consistent with mild pulmonary edema versus less pneumonia. A few scattered calcified pulmonary nodules in both lungs along with calcified right hilar and mediastinal lymph nodes consistent with old granulomatous disease. Heart size is normal. Atherosclerotic coronary artery calcific lesion. No pericardial effusion. Thoracic aorta is normal in caliber with no dissect ion. No pathologically enlarged thoracic lymphadenopathy. Cholelithiasis. Moderate lower cervical and mild to moderate thoracic spondylosis. Chronic likely physiologic mild anterior wedging at T12 and L 1. IMPRESSION: 1. No pulmonary embolism. 2. large right hydropneumothorax with decrease in size of the gas component since the prior study. 3. Associated near complete collapse of the right lung with 3 x 2 cm region of decreased enhancement within the collapsed portion of the right lung suspicious for pneumonia or malignancy. 4. Small left pleural effusion with perihilar predominant groundglass and septal line thickening in t he left lung which could represent pulmonary edema or pneumonia. 5. Cholelithiasis. Reviewed, dictated and finalized at location A. IMPRESSION: 1. No pulmonary embolism. 2. large right hydropneumothorax with decrease in size of the gas component sin ce the prior study. 3. Associated near complete collapse of the right lung with 3 x 2 cm region of decreased enhancement within the collapsed portion of the right lung suspicious for pneumonia or malignancy. 4. Small left pleural effusion with perihilar predominant groundglass and septa l line thickening in the left lung which could represent pulmonary edema or pne umonia. 5. Cholelithiasis.
--- NOTE | ~2023-11-19 | XR_ITS ---
EXAMINATION: [id number]_CR DATE: 11/24/2023 14:39 INDICATION: Right pleural effusion status post thoracentesis. TECHNIQUE: A single frontal view of the chest was obtained. COMPARISON: Chest single view at 5:11 AM FINDINGS: There is complete opacification of right hemithorax. There is volume loss of right hemithor ax with rightward shift the mediastinum. There are airspace and interstitial opacities in all left ada ng zones with a perihilar predominance. No pneumothorax. The heart size is normal. IMPRESSION: 1. Persistent complete opacification of right hemithorax with worsened rightward shift of the mediast inum status post thoracentesis, consistent with a combination of atelectasis and pleural effusion. Wo rsened rightward midline shift suggests occlusion of the proximal right-sided bronchi from malignancy or mucous plugging. 2. Diffuse left lung disease with slight improvement in left lower lung zone, consistent with pulmona ry edema or less likely pneumonia. Reviewed, dictated and finalized at location A. IMPRESSION: 1. Persistent complete opacification of right hemithorax with worsened rightwar d shift of the mediastinum status post thoracentesis, consistent with a combina tion of atelectasis and pleural effusion. Worsened rightward midline shift sugg ests occlusion of the proximal right-sided bronchi from malignancy or mucous pl ugging. 2. Diffuse left lung disease with slight improvement in left lower lung zone, c onsistent with pulmonary edema or less likely pneumonia.
--- NOTE | ~2023-11-19 | XR_ITS ---
Portable chest x-ray Comparison: 11/23/2023 Clinical History: Pleural effusion Findings: Stable whiteout of the right hemithorax. Diffuse groundglass and interstitial disease in t he left lung is again present. Cardiomediastinal silhouette is stable. Bones and soft tissues are un remarkable. Impression: Stable whiteout of the right hemithorax. This is compatible with large pleural effusion and/or comple te right lung atelectasis. Extensive airspace and interstitial disease in the left lung, compatible with moderate to advanced pu lmonary edema. Correlate clinically for infection. Reviewed, dictated and finalized at location . Impression: Stable whiteout of the right hemithorax. This is compatible with large pleural effusion and/or complete right lung atelectasis. Extensive airspace and interstitial disease in the left lung, compatible with m oderate to advanced pulmonary edema. Correlate clinically for infection.
--- NOTE | ~2023-11-19 | XR_ITS ---
EXAMINATION: XR chest 1V portable DATE: 11/20/2023 00:53 INDICATION: Chest pain. Lung cancer. TECHNIQUE: frontal view of the chest was obtained. COMPARISON: Chest radiograph and CT dated 11/07/[address] dated 11/20/2023 FINDINGS: Persistent near complete opacification of the right hemithorax corresponding to a persistent large ri ght hydropneumothorax with a small gas component better appreciated on subsequent CT. Persistent line ar complete collapse of the right lung. Left perihilar interstitial and groundglass opacities suggest ing mild pulmonary edema with differential including pneumonia. No left-sided pleural effusion or pne umothorax. Cardiac silhouette is obscured. IMPRESSION: 1. Persistent large right hydropneumothorax with near complete collapse of the right lung. 2. Mild left perihilar pulmonary edema versus pneumonia. Reviewed, dictated and finalized at location A.
--- NOTE | ~2023-11-19 | XR_ITS ---
Portable chest x-ray Comparison: 11/22/2023 Clinical History: Pleural effusion Findings: There is stable widening of the right hemithorax. There is diffuse groundglass and interst itial disease in the left lung. Cardiomediastinal silhouette is stable. Bones and soft tissues are u nremarkable. Impression: Stable whiteout of the right hemithorax. This could reflect large effusion and/or atelectasis. Stable diffuse groundglass and interstitial disease of the left lung. Correlate for pulmonary edema v ersus infection. Reviewed, dictated and finalized at location . Impression: Stable whiteout of the right hemithorax. This could reflect large effusion and/ or atelectasis. Stable diffuse groundglass and interstitial disease of the left lung. Correlate for pulmonary edema versus infection.
--- NOTE | ~2023-11-19 | XR_ITS ---
EXAMINATION: [id number] DATE: 11/23/2023 11:40 INDICATION: Large right pleural effusion status post right thoracentesis. TECHNIQUE: A single frontal view of the chest was obtained. COMPARISON: Chest single view at 5:07 AM FINDINGS: There are airspace and interstitial opacities throughout left lung. There is complete opaci fication of right hemithorax with volume loss. No pneumothorax. The heart size is normal. IMPRESSION: 1. Persistent complete opacification of right hemithorax, likely a combination of atelectasis and lar ge pleural effusion. 2. Stable diffuse left lung disease, consistent with pulmonary edema or less likely pneumonia. Reviewed, dictated and finalized at location A. IMPRESSION: 1. Persistent complete opacification of right hemithorax, likely a combination of atelectasis and large pleural effusion. 2. Stable diffuse left lung disease, consistent with pulmonary edema or less li michael pneumonia.
--- NOTE | ~2023-11-19 | XR_ITS ---
Portable chest x-ray Comparison: 11/27/2023 Clinical History: Pleural effusion Findings: Stable whiteout of the right hemithorax with cut off of the right mainstem arteries. Exten sive groundglass and interstitial disease of the left lung is unchanged. Cardiomediastinal silhouett e is stable. Bones and soft tissues are unremarkable. Impression: Stable exam. Stable whiteout of the right hemithorax. Stable extensive groundglass and interstitial disease at the left lung. Reviewed, dictated and finalized at location M. Impression: Stable exam. Stable whiteout of the right hemithorax. Stable extensive groundglass and inter stitial disease at the left lung.
--- NOTE | ~2023-11-19 | XR_ITS ---
EXAMINATION: XR chest 1V portable DATE: 11/27/2023 11:53 INDICATION: Dyspnea. TECHNIQUE: A single frontal view of the chest was obtained. COMPARISON: Chest single view 11/26/2023 FINDINGS: There is complete opacification of right hemithorax with rightward shift of the mediastinum . There are airspace and interstitial opacities in all left lung zones. No pneumothorax. The heart si ze is normal. IMPRESSION: 1. Stable complete opacification of right hemithorax with rightward shift of the mediastinum, likely a combination of atelectasis and pleural effusion. 2. Worsened diffuse left lung disease, consistent with pulmonary edema versus pneumonia. Reviewed, dictated and finalized at location A. IMPRESSION: 1. Stable complete opacification of right hemithorax with rightward shift of th e mediastinum, likely a combination of atelectasis and pleural effusion. 2. Worsened diffuse left lung disease, consistent with pulmonary edema versus p neumonia.
--- NOTE | ~2023-11-19 | XR_ITS ---
Portable chest x-ray Comparison: 11/24/2023 Clinical History: Pleural effusion Findings: Stable widening of the right hemithorax. Diffuse groundglass and interstitial disease left lung is unchanged. Cardiomediastinal silhouette is stable. Bones and soft tissues are unremarkable. Impression: Stable whiteout of the right hemithorax with cut off of the right mainstem bronchus. Findings are con sistent with large effusion and associated complete right lung atelectasis. Stable extensive pulmonary edema pattern versus pneumonia in the left lung. Reviewed, dictated and finalized at location . Impression: Stable whiteout of the right hemithorax with cut off of the right mainstem bron chus. Findings are consistent with large effusion and associated complete right lung atelectasis. Stable extensive pulmonary edema pattern versus pneumonia in the left lung.
[2023-11-19 23:20] VITALS: BP 138/64; PULSE 94; RESP 18; TEMP 36.7; O2SAT 89
--- NOTE | 2023-11-19 23:27 | ECG_ITS ---
Test Date: 2023-11-19 23:27:27 Measurements Intervals Bourg Rate: 94 P: 24 AR: 143 QRS: 36 QRSD: 70 T: 52 QT: 346 QTc: 434 Interpretive Statements SINUS RHYTHM BASELINE ARTIFACT- III, AVL, AVF, V4 NORMAL ECG No previous ECG available for comparison Electronically Signed On 11-20-2023 06:38:19 CDT by Evgeny Garcia D.O.
[2023-11-19 23:35] VITALS: O2SAT 99
[2023-11-19 23:47] LABS: Basophils Percent Auto 0.1 % (0.2-1.2); Eosinophils Percent Auto 0.1 % (0-4.4); Hematocrit 22.7 % (42.0-52.0); Hemoglobin 7.5 g/dL (14.0-18.0); Immature Granulocyte Absolute 0.14 K/mm3 (0.00-0.031); Immature Granulocyte Percent A 1.8 % (0-0.5); Lymphocytes Absolute Auto 1.24 K/mm3 (0.9-3.2); Lymphocytes Percent Auto 16.3 % (18.3-44.2); Mean Corpuscular Hemoglobin 33.9 pg (26-34); Mean Corpuscular Volume 102.7 fl (80-100); Mean Platelet Volume 8.7 fl (7.4-10.4); Monocytes Percent Auto 13.1 % (2.6-8.5); Neutrophils Absolute Auto 5.2 K/mm3 (1.3-6.7); Neutrophils Percent Auto 68.6 % (45.5-73.1); Platelet Count Result 203 k/mm3 (150-375); Red Blood Count 2.21 M/mm3 (4.6-6.20); Red Cell Distribution Width 18.6 % (11.5-14.5); White Blood Count 7.6 K/mm3 (4.5-10.0)
[2023-11-19 23:59] LABS: Alanine Aminotransferase 27 U/L (6-50); Albumin Level 2.7 g/dL (3.5-5.1); Alkaline Phosphatase 111 U/L (38-126); Anion Gap 6 mmol/L (4-12); Aspartate Amino Transferase 37 U/L (17-59); Bilirubin,Total 0.7 mg/dL (0.2-1.3); Blood Urea Nitrogen 18 mg/dL (9-20); Calcium 7.9 mg/dL (8.4-10.2); Carbon Dioxide 28 mmol/L (22-30); Chloride 90 mmol/L (98-107); Estimated CRCL calculation 85 ml/min; Estimated Glomerular Filt Rate > 60; Glucose 107 mg/dL (65-110); Lipase 112 U/L (23-300); Potassium 3.7 mmol/L (3.4-5.0); Sodium 124 mmol/L (137-145)
[2023-11-20] VITALS (26 sets, daily range): BP systolic 125–163; BP diastolic 63–79; PULSE 85–99; RESP 14–23; TEMP 36.8–37; O2SAT 91–100
[2023-11-20 00:02] LABS: INR 1.1; Partial Thromboplastin Time 35.2 Seconds (22.3-36.8); Prothrombin Time 14.5 Seconds (11.1-14.7)
[2023-11-20 00:10] LABS: Troponin I 0.022 ng/mL (0.000-0.034)
[2023-11-20 00:18] LABS: Magnesium 1.9 mg/dL (1.6-2.3)
[2023-11-20 00:28] LABS: NT Pro B Type Natriuretic Pept 647 pg/mL (19.9-100)
--- NOTE | 2023-11-20 00:42 | ED.GENADULT ---
HPI - General Adult General Chief complaint: Chest Pain <Carlos Garcia MD - Last Filed: 11/20/23 00:46> Stated complaint: chest pain/sob <Carlos Garcia MD - Last Filed: 11/20/23 00:46> Time Seen by Provider: 11/19/23 23:36 <Carlos Garcia MD - Last Filed: 11/20/23 00:46> History of Present Illness HPI narrative: Patient 83-year-old gentleman presents emergency department with chief complaint of chest pain and shortness of breath. Patient was recently discharged from [facility] after having surgery on his right hip the patient has also has had history of lung cancer and has had pleural effusions before the patient today started getting more short of breath and had pain his right chest. The patient was found to be saturating 85% on his baseline 4 L nasal cannula. <Carlos Garcia MD - Last Filed: 11/20/23 00:46> Patient 83-year-old gentleman presents to the emergency department with chief complaint of chest pain and shortness of breath. Patient was recently discharged from [facility] after having surgery on his right hip the patient has also has had history of lung cancer and has had pleural effusions before the patient today started getting more short of breath and had pain his right chest. The patient was found to be saturating 85% on his baseline 4 L nasal cannula. <Tom Schuster MD - Last Filed: 11/21/23 15:46> Related Data Home medications: Home Medications Medication Instructions Recorded Confirmed tamsulosin 0.4 mg capsule 0.4 mg PO DAILY 11/26/19 11/16/23 acetaminophen 325 mg tablet 650 mg PO Q6H PRN Pain 11/16/23 11/16/23 apixaban 2.5 mg tablet 2.5 mg PO Q12H 11/16/23 11/16/23 cholecalciferol (vitamin D3) 50 50 mcg PO DAILY 11/16/23 11/16/23 mcg (2,000 unit) tablet fluticasone fur. 200 mcg-umeclid 1 inh inhalation DAILY 11/16/23 11/16/23 62.5 mcg-vilant 25 mcg inhalat.powder (Trelegy Ellipta) levothyroxine 100 mcg tablet 100 mcg PO DAILY 11/16/23 11/16/23 (Synthroid) lidocaine 5 % topical patch 4 patch topical DAILY 11/16/23 11/16/23 oxycodone 5 mg tablet 5 mg PO Q8H PRN Pain 11/16/23 11/16/23 latanoprost (PF) 0.005 % eye drops 1 drp RIGHT EYE HS 11/17/23 11/17/23 in a dropperette <Carlos Garcia MD - Last Filed: 11/20/23 00:46> Allergies/adverse reactions: Allergies Allergy/AdvReac Type Severity Reaction Status Date / Time allopurinol Allergy Severe Rash Verified 11/20/23 07:35 benzalkonium Allergy Unknown Verified 11/20/23 07:35 doxycycline AdvReac Severe Dizziness Verified 11/20/23 07:35 <Carlos Garcia MD - Last Filed: 11/20/23 00:46> Review of Systems Review of Systems: A 10 system review of systems was completed on the patient and is negative except for what is stated in the HPI. Nursing and ancillary documentation was reviewed. <Carlos Garcia MD - Last Filed: 11/20/23 00:46> [facility] Past Medical History Medical History: Medical History Blood in stool BPH (benign prostatic hyperplasia) CLL (chronic lymphocytic leukemia) COPD (chronic obstructive pulmonary disease) Glaucoma Hypertension Hypothyroid <Carlos Garcia MD - Last Filed: 11/20/23 00:46> Family History Family History: Family History Sibling Family history of lung cancer Family history of malignant neoplasm of brain Father Family history of coronary artery disease Family history of cardiovascular disease <Carlos Garcia MD - Last Filed: 11/20/23 00:46> Social History Social History: Social History Smoking status: Former smoker Second hand tobacco smoke exposure: Yes (Son smokes) Alcohol intake: never Substance use: never Substance use type: does not use Other substance usage details: none
[2023-11-20 01:01] LABS: Alveolar/Arterial O2 Gradient 460.5 mmHg; Base Excess ABG 1.3 mEq/l (+/-2.0); Fractional Inspired Oxygen 85 %; HCO3 ABG 25.7 mEq/l (22.0-26.0); Oxygen Content ABG 11.3 %vol (16.0-22.0); Oxygen Saturation ABG 97.9 % (95.0-100.0); Oxyhemoglobin 96.1 % THb (90.0-100.0); PCO2 ABG 39.7 mmHg (35.0-45.0); PO2 ABG 104.4 mmHg (80.0-100.0); PO2 FiO2 Ratio Arterial Blood 1.23 %; Total Hemoglobin 8.2 g/dL (12.0-18.0); pH ABG 7.429 (7.350-7.450)
[2023-11-20 01:03] LABS: Device NON-REBREATHER MASK; Modified Allen's Test Pass; Site Drawn LEFT RADIAL
[2023-11-20] MEDS: IPRATROPIUM 0.5 MG/ALBUTEROL SULFATE 2.5 MG AMPUL.NEB 3 ML INHALATION (01:03)
[2023-11-20 01:42] LABS: Influenza A QL RT-PCR Negative (Negative); Influenza B QL RT-PCR Negative (Negative); RSV RNA, RT-PCR Negative (Negative); SARS-CoV-2 RNA PCR Negative (Negative)
[2023-11-20 01:57] LABS: Add Urine Microscopic? YES; Appearance Urine Clear (Clear); Bacteria Urine None Seen /hpf; Bilirubin Urine Negative (Negative); Blood Urine Negative (Negative); Color Urine Yellow (Yellow); Glucose Urine UA Negative (Negative); Ketones Urine Negative (Negative); Leukocyte Esterase Ur Negative LEU/UL (Negative); Nitrate Urine Negative (Negative); Non Pathogenic Casts 0-2; Protein Urine Trace mg/dL (Negative); RBC Urine 0-2 /hpf (0-2); Specific Grav Ur 1.011 (1.001-1.035); Squamous Epithelial Cell Urine None Seen /hpf (Few); WBC Urine 0-5 /hpf (0-3); pH Urine 6.5 (5.0-9.0)
[2023-11-20 05:00] LABS: Troponin I 0.019 ng/mL (0.000-0.034)
[2023-11-20 07:08] LABS: Troponin I 0.017 ng/mL (0.000-0.034)
[2023-11-20] MEDS: CEFEPIME 2 GM/NS 50 ML 2 GM/50 ML BAG IVPB ×2 (07:23→18:21)
--- NOTE | 2023-11-20 07:29 | PC.NURSE ---
Spoke with Nursing line supervisor, Viri, at [facility] for an update.
--- NOTE | 2023-11-20 07:44 | PC.NURSE ---
Patient has been accepted to [facility] under Dr Stewart. Nasir Jones at the [facility] transfer center, there are no beds available at this time.
--- NOTE | 2023-11-20 08:22 | PC.NURSE ---
Patient complains of increasing SOB. Provider at bedside.
[2023-11-20] MEDS: LORazepam INJ (*CRX) 2 MG/ML VIAL 0.5 MG IV PUSH (08:32)
[2023-11-20] MEDS: VANCOMYCIN 2,000 MG/NS 500 ML 2,000 MG/500 ML BAG 250 MG IVPB (09:04)
[2023-11-20 09:06] LABS: MRSA (PCR) NOT DETECTED (NOT DETECTE)
--- NOTE | 2023-11-20 12:47 | PC.NURSE ---
Patient resting in stretcher with lights off at this time.
--- NOTE | 2023-11-20 13:53 | PC.NURSE ---
Spoke with patient's with update.
--- NOTE | 2023-11-20 15:40 | PC.NURSE ---
Bed Status - No Beds patient remains on bed wait list
--- NOTE | 2023-11-20 17:09 | PC.NURSE ---
Patient placed on hospital bed for comfort.
[2023-11-20] MEDS: VANCOMYCIN 1,500 MG/NS 500 ML 1,500 MG/500 ML BAG 250 MG IVPB (22:12)
[2023-11-21] VITALS (15 sets, daily range): BP systolic 126–145; BP diastolic 55–77; PULSE 83–108; RESP 15–24; TEMP 36.3–36.8; O2SAT 90–100
--- NOTE | 2023-11-21 02:00 | PC.NURSE ---
Pt is in a room close to nursing station and on a bed alarm. Pt appeared to be trying to get out of bed, upon entering pt room both IV's had been removed by pt. Pt was cleaned up, reoriented, and a new IV was placed in the left AC. Pt's IV site is wrapped with coban, and will continue to be closely monitored.
[2023-11-21] MEDS: CEFEPIME 2 GM/NS 50 ML 2 GM/50 ML BAG IVPB ×3 (06:44→21:30)
[2023-11-21 07:09] LABS: Estimated CRCL calculation 85 ml/min; Estimated Glomerular Filt Rate > 60
--- NOTE | 2023-11-21 08:21 | PC.NURSE ---
Home meds ordered per Dr. Schuster, RN will reach out to family for eye drops
[2023-11-21] MEDS: CHOLECALCIFEROL 1,000 UNITS TABLET 2000 UNITS PO (08:49)
[2023-11-21] MEDS: VANCOMYCIN 1,500 MG/NS 500 ML 1,500 MG/500 ML BAG 250 MG IVPB (08:49)
[2023-11-21] MEDS: APIXABAN 2.5 MG TABLET PO ×2 (08:49→21:44)
[2023-11-21] MEDS: TAMSULOSIN HCL 0.4 MG CAPSULE PO (08:49)
--- NOTE | 2023-11-21 08:52 | PC.NURSE ---
Breakfast offered. Pt declined at this time. Taking po fluids
--- NOTE | 2023-11-21 09:26 | PC.NURSE ---
Called [facility] at [phone] to check on status of bed for patient. They said they do not have bed assigned yet but patient is on critical waitlist for medical ICU.
--- NOTE | 2023-11-21 09:27 | PC.NURSE ---
Sophia with [facility] transfer line phoned for pt update. Sophia states pt on highest priority list.
[2023-11-21] MEDS: LEVOTHYROXINE SODIUM 100 MCG TABLET PO (11:25)
[2023-11-21] MEDS: AZITHROMYCIN 500 MG/NS 250 ML 500 MG/250 ML BAG 250 MG IVPB (11:26)
--- NOTE | 2023-11-21 15:46 | ED.PROGRESS ---
Subjective Date/time seen: 11/21/23 15:46 Interval history: Patient is still resting comfortably. Patient is still saturating well on use high-flow. Patient is resting comfortably with no complaints. Review of Systems Review of Systems All systems reviewed & are unremarkable except as noted in HPI and below Objective Data Vital Signs Vital Signs: Vital Signs - 24 hr 11/21/23 13:57 11/21/23 14:39 11/21/23 17:49 Temperature 97.4 F L Pulse Rate 92 98 Respiratory Rate 18 19 Blood Pressure 136/58 L 126/55 L Pulse Oximetry 97 94 91 Oxygen Delivery High Flow Therapy with Na Oxygen Flow Rate 35 Fraction of Inspired Oxygen 50 11/21/23 19:08 11/21/23 20:04 11/21/23 21:45 Temperature Pulse Rate 108 H 95 Respiratory Rate 22 H 22 H Blood Pressure 131/64 133/59 L Pulse Oximetry 91 95 91 Oxygen Delivery High Flow Therapy with Na Oxygen Flow Rate 35 Fraction of Inspired Oxygen 50 11/21/23 23:10 11/22/23 00:00 11/22/23 04:00 Temperature 98.9 F 98.1 F Pulse Rate 96 94 82 Respiratory Rate 18 25 H 15 Blood Pressure 135/60 139/65 161/60 H Pulse Oximetry 90 91 94 Oxygen Delivery Oxygen Flow Rate Fraction of Inspired Oxygen 11/22/23 07:26 11/22/23 07:57 11/22/23 08:57 Temperature 97.8 F Pulse Rate 87 Respiratory Rate 21 H Blood Pressure 152/69 H Pulse Oximetry 96 95 Oxygen Delivery Oxygen Flow Rate 35 Fraction of Inspired Oxygen 11/22/23 09:25 11/22/23 12:40 11/22/23 12:40 Temperature 97.3 F L Pulse Rate 106 H 101 H Respiratory Rate 20 17 Blood Pressure 143/64 H Pulse Oximetry 93 91 91 Oxygen Delivery High Flow Therapy with Na Oxygen Flow Rate 40 40 Fraction of Inspired Oxygen 60 11/22/23 13:00 11/22/23 13:09 Temperature Pulse Rate 94 92 Respiratory Rate 20 20 Blood Pressure Pulse Oximetry Oxygen Delivery Oxygen Flow Rate Fraction of Inspired Oxygen Intake/Output Intake/Output: Intake & Output 11/19/23 11/20/23 11/21/23 11/22/23 23:59 23:59 23:59 23:59 Intake Total 600 1400 300 Balance 600 1400 300 Meds/Results Medications: Active Medications Generic Name Dose Route Start Last Admin Trade Name Cierra PRN Reason Stop Dose Admin Apixaban 2.5 mg 11/21/23 09:00 11/22/23 06:37 Apixaban 2.5 Mg Tablet PO 2.5 mg Q12HR MARLEEN Administration Cefepime HCl 2 gm in 50 mls @ 100 mls/hr 11/21/23 14:00 11/22/23 06:41 Maxipime 2 Gm/Ns 50 Ml IVPB Infused Q8H MARLEEN Infusion Azithromycin 500 mg in 250 mls @ 250 mls/hr 11/21/23 10:00 11/22/23 10:51 Zithromax IVPB Infused DAILY MARLEEN Infusion Levothyroxine Sodium 100 mcg 11/22/23 06:30 11/22/23 06:37 Levothyroxine Sodium 100 Mcg Tablet PO 100 mcg DAILY@0630 MARLEEN Administration Vitamin D 2,000 units 11/21/23 09:00 11/22/23 06:37 Cholecalciferol 1,000 Units Tablet PO 2,000 units DAILY MARLEEN Administration Radiology Results: ITS Impressions Chest CTA 11/20/23 06:41 IMPRESSION: 1. No pulmonary embolism. 2. large right hydropneumothorax with decrease in size of the gas component since the prior study. 3. Associated near complete collapse of the right lung with 3 x 2 cm region of decreased enhancement within the collapsed portion of the right lung suspicious for pneumonia or malignancy. 4. Small left pleural effusion with perihilar predominant groundglass and septal line thickening in the left lung which could represent pulmonary edema or pneumonia. 5. Cholelithiasis. Chest X-Ray 11/22/23 13:03 IMPRESSION: 1. Worsened complete opacification of right lung, likely predominantly a large pleural effusion. 2. Stable left lung disease, consistent with moderate pulmonary edema or less likely pneumonia. Labs Labs: Laboratory Results - last 24 hr 11/21/23 06:47 Creatinine 0.60 L Estim Creat Clear Calc 85 Estimated GFR > 60
--- NOTE | 2023-11-21 17:12 | PC.NURSE ---
Dinner tray ordered for pt.
--- NOTE | 2023-11-21 19:03 | ECG_ITS ---
Test Date: 2023-11-21 19:23:56 Measurements Intervals [place] Rate: 103 P: 22 CO: 145 QRS: 34 QRSD: 78 T: 48 QT: 324 QTc: 425 Interpretive Statements SINUS TACHYCARDIA WITH OCCASIONAL SUPRAVENTRICULAR PREMATURE COMPLEXES BASELINE ARTIFACT- I, III, AVL BORDERLINE ECG Compared to ECG 11/19/2023 23:27:27 HEART RATE HAS INCREASED Electronically Signed On 11-21-2023 20:00:01 CDT by Evgeny Garcia D.O.
--- NOTE | 2023-11-21 21:29 | PC.NURSE ---
spoke to Danielle at [facility] transfer center to give a statu update on the pt. Danielle says there is still no bed available
[2023-11-22] VITALS (19 sets, daily range): BP systolic 131–179; BP diastolic 59–82; PULSE 82–106; RESP 15–29; TEMP 36.3–37.2; O2SAT 91–96; BMI 23.8
[2023-11-22] MEDS: CEFEPIME 2 GM/NS 50 ML 2 GM/50 ML BAG IVPB ×3 (06:11→21:18)
[2023-11-22] MEDS: LEVOTHYROXINE SODIUM 100 MCG TABLET PO (06:37)
[2023-11-22] MEDS: APIXABAN 2.5 MG TABLET PO (06:37)
[2023-11-22] MEDS: CHOLECALCIFEROL 1,000 UNITS TABLET 2000 UNITS PO (06:37)
--- NOTE | 2023-11-22 08:23 | PC.NURSE ---
No beds available remains on bed wait list
[2023-11-22] MEDS: AZITHROMYCIN 500 MG/NS 250 ML 500 MG/250 ML BAG 250 MG IVPB (09:05)
[2023-11-22] MEDS: ALBUTEROL SULFATE NEB 2.5 MG/3 ML INH INHALATION (13:00)
--- NOTE | 2023-11-22 13:25 | ED.PROGRESS ---
Subjective Date/time seen: 11/22/23 13:25 Interval history: Patient was complaining of some worsening shortness of breath he did feel improved after a breathing treatment. Chest x-ray was repeated and does show worsening pleural effusion. We did recall [facility] they still have no beds that are available. I discussed the case with Dr. Luis, the hot kettle tender, and he was willing to accept the patient but wanted us to check additional facilities to see if they would accept the patient. I discussed this with the patient and patient does not want to go to [facility] or any other hospitals besides [facility] but is willing to stay here. Thoracentesis was ordered. Patient was alert oriented and stable at time of admission to the ICU. Objective Data Vital Signs Vital Signs: Vital Signs - 24 hr 11/21/23 17:49 11/21/23 19:08 11/21/23 20:04 Temperature Pulse Rate 98 108 H Respiratory Rate 19 22 H Blood Pressure 126/55 L 131/64 Pulse Oximetry 91 91 95 Oxygen Delivery High Flow Therapy with Na Oxygen Flow Rate 35 Fraction of Inspired Oxygen 50 11/21/23 21:45 11/21/23 23:10 11/22/23 00:00 Temperature 98.9 F Pulse Rate 95 96 94 Respiratory Rate 22 H 18 25 H Blood Pressure 133/59 L 135/60 139/65 Pulse Oximetry 91 90 91 Oxygen Delivery Oxygen Flow Rate Fraction of Inspired Oxygen 11/22/23 04:00 11/22/23 07:26 11/22/23 07:57 Temperature 98.1 F 97.8 F Pulse Rate 82 87 Respiratory Rate 15 21 H Blood Pressure 161/60 H 152/69 H Pulse Oximetry 94 96 Oxygen Delivery Oxygen Flow Rate Fraction of Inspired Oxygen 11/22/23 08:57 11/22/23 09:25 11/22/23 12:40 Temperature Pulse Rate 106 H Respiratory Rate 20 Blood Pressure Pulse Oximetry 95 93 91 Oxygen Delivery High Flow Therapy with Na Oxygen Flow Rate 35 40 40 Fraction of Inspired Oxygen 60 11/22/23 12:40 11/22/23 13:00 11/22/23 13:09 Temperature 97.3 F L Pulse Rate 101 H 94 92 Respiratory Rate 17 20 20 Blood Pressure 143/64 H Pulse Oximetry 91 Oxygen Delivery Oxygen Flow Rate Fraction of Inspired Oxygen Intake/Output Intake/Output: Intake & Output 11/19/23 11/20/23 11/21/23 09/17/24 23:59 23:59 23:59 23:59 Intake Total 600 1400 300 / 200 Balance 600 1400 300 / -100 Meds/Results Medications: Active Medications Generic Name Dose Route Start Last Admin Trade Name Freq PRN Reason Stop Dose Admin Acetaminophen 650 mg 11/22/23 16:00 Acetaminophen 325 Mg Tablet PO Q6H PRN Pain Rated 1-3 Albuterol 2 puff 11/22/23 16:00 Albuterol Sulfate (*Sp) Aerosol 1 Puff INHALATION Q6H PRN shortness of breath or wheezing Apixaban 2.5 mg 11/21/23 09:00 11/22/23 06:37 Apixaban 2.5 Mg Tablet PO 2.5 mg Q12HR MARLEEN Administration Fluticasone/Umeclidinium/Vilanterol 1 puff 11/22/23 15:05 11/22/23 16:03 Fluticasone/Umeclidin/Vilanter 200-62.5-25 Mcg Ellipta INHALATION 1 puff DAILYRT MARLEEN Administration Cefepime HCl 2 gm in 50 mls @ 100 mls/hr 11/21/23 14:00 11/22/23 14:53 Maxipime 2 Gm/Ns 50 Ml IVPB Infused Q8H MARLEEN Infusion Azithromycin 500 mg in 250 mls @ 250 mls/hr 11/21/23 10:00 11/22/23 10:51 Zithromax IVPB Infused DAILY MARLEEN Infusion Levothyroxine Sodium 100 mcg 11/23/23 06:30 Levothyroxine Sodium 100 Mcg Tablet PO DAILY@0630 [facility] Lidocaine 4 patch 11/23/23 09:00 Lidocaine 5% Patch TOPICAL DAILY [facility] * Home Med * 1 each 11/22/23 21:00 Latanoprost 0.005% RIGHT EYE 12/22/23 20:59 Op Soln 2.5 Ml ( [facility] Preservative Free) Oxycodone HCl 5 mg 11/22/23 16:00 Oxycodone Hcl (*Crx) 5 Mg Tab Ir PO Q8H PRN Pain 7-10 Tamsulosin HCl 0.4 mg 11/23/23 09:00 Tamsulosin Hcl 0.4 Mg Capsule PO DAILY [facility] Vitamin D 2,000 units 11/23/23 09:00 Cholecalciferol 1,000 Units Tablet PO DAILY MARLEEN Radiology Results: ITS Impressions Chest CTA 11/20/23 06:
--- NOTE | 2023-11-22 14:32 | PC.NURSE ---
report received from NICOLE Galvin
--- NOTE | 2023-11-22 15:00 | ADMGEN ---
This patient, Mat Montoya, was admitted to Intensive Care Unit-6. Patient/family oriented to hospital policies and general routines including ID bracelet, bed and alarms, visiting hours, pain management, procedures, bathroom and other care routines, personal items, smoking policy, room service/diet, and visiting hours. Information on how to activate the Rapid Response Team has been discussed. Patient/Family are encouraged to report perceived risks to care and to ask questions if they do not understand what they are told or what they should do.
--- NOTE | 2023-11-22 15:30 | PM.IMHP ---
H&P: HPI History of Present Illness Date/Time: 11/22/23 15:30 Chief Complaint: Chest pain and shortness of breath. Narrative: This is a very pleasant 83-year-old male with history of right lung cancer with malignant effusion/hydropneumothorax, suspected chronic obstructive pulmonary disease, chronic respiratory failure with hypoxia on 2 L nasal cannula, hypertension, chronic kidney disease, hyponatremia, anemia, benign prostatic hyperplasia, hypothyroidism, chronic lymphocytic leukemia, and prostate cancer under surveillance who presented to the emergency department from [facility] for evaluation of chest pain and shortness of breath. He was came to their facility on 11/16/2023 for rehab from [facility] where he was admitted earlier this month with a right subcapital femoral neck fracture with indeterminate underlying permeative lytic lesion status post hemiarthroplasty on 11/09/2023 with plans to start radiation in 3 to 4 weeks. He developed mid chest pain and shortness of breath in the evening of his 3rd day in rehab and was sent to the ED. He describes a pressure-like discomfort throughout his chest though more so on the left side. In addition to the shortness of breath he was also feeling sweaty when the chest discomfort started. He also reports having a cough the last couple of days which is occasionally admits with light pink sputum. He denies syncope, near syncope, palpitations, fever, sinus congestion, sore throat, dysphagia, concerns for aspiration, vomiting, diarrhea, dysuria, and calf pain. In the ED: Vitals on arrival include a blood pressure of 142/62, pulse 100, respiratory rate 20, SpO2 88%, temperature 98.6? F. He has remained afebrile with stable blood pressures. He remains on high-flow nasal cannula. Labs were significant for WBC count 7.6, hemoglobin 7.5, hematocrit 22.7%, MCV 102.7, platelet 203, INR 1.1, sodium 124, potassium 3.7, chloride 90, BUN 18, creatinine 0.60, calcium 7.9, troponin 0.022, proBNP 647, total protein 6.0, albumin 3.7. Chest CTA was negative for pulmonary embolism but did show a large right hydropneumothorax with a decrease in size of gas component since the prior study, associated near complete collapse of the right lung with a 3 x 2 cm region of decreased enhancement within the collapsed portion of the lung suspicious for pneumonia or malignancy, small left pleural effusion, and cholelithiasis. He was started on azithromycin and cefepime for possible underlying pneumonia. Transfer was initiated to [facility] where he receives a majority of his care. Review of Systems Review of Systems: 12 systems were reviewed and are negative except for as per HPI. [facility] Past Medical History Medical History (Updated 11/22/23 @ 23:16 by Garima Jaramillo PA-C) Adenocarcinoma of right lung Benign prostatic hyperplasia Chronic anticoagulation Chronic lymphocytic leukemia (2019) Chronic obstructive pulmonary disease Reportedly diagnosed while at [facility] in November 2023 though he has not had formal pulmonary function testing. Glaucoma Glaucoma Hydropneumothorax Hypertension Hypothyroidism Prostate cancer Under surveillance. Surgical History Surgical History (Updated 11/22/23 @ 23:15 by Garima Jaramillo PA-C) History of right hip hemiarthroplasty (11/2023) Family History Family History Sibling Family history of lung cancer Family history of malignant neoplasm of brain Father Family history of coronary artery disease Family history of cardiovascular disease Social History Social History (Updated 11/22/23 @ 16:01 by Garima Jaramillo PA-C) Social History: Surrogate medical decision maker: Erin Montoya, spouse. Code status: Full code. Smoking packs per day: 1 Smoking cigarettes per day: 20.0 Years smoked: 50 Smoking pack-years: 50.00 Smoking status: Former smoker Second hand tobacco smoke exposure: Yes (Son smokes) Alcohol int
[2023-11-22] MEDS: FLUTICASONE/UMECLIDIN/VILANTER 200-62.5-25 MCG ELLIPTA 1 PUFF INHALATION (16:03)
--- NOTE | 2023-11-22 16:46 | PHAR ---
pharmacy verified home med: * Use From Home * LATANOPROST 0.005% OP SOLN 2.5 ML (PRESERVATIVE FREE) instill 1 drop into right eye at HS
[2023-11-22 17:08] LABS: Hematocrit 24.9 % (42.0-52.0); Hemoglobin 8.1 g/dL (14.0-18.0); Mean Corpuscular HGB Conc 32.5 g/dl (32-36); Mean Corpuscular Hemoglobin 33.9 pg (26-34); Mean Corpuscular Volume 104.2 fl (80-100); Mean Platelet Volume 8.4 fl (7.4-10.4); Platelet Count Result 225 k/mm3 (150-375); Red Blood Count 2.39 M/mm3 (4.6-6.20); Red Cell Distribution Width 18.6 % (11.5-14.5); White Blood Count 8.1 K/mm3 (4.5-10.0)
[2023-11-22 17:09] LABS: Reticulocyte Hemoglobin Conten 36.4 pg (28.2-36.6); Reticulocyte Percent 5.95 % (0.7-4.3); Reticulocytes Absolute 0.15 10^6/uL (0.02-0.10)
[2023-11-22 17:19] LABS: Anion Gap 4 mmol/L (4-12); Blood Urea Nitrogen 14 mg/dL (9-20); Calcium 8.1 mg/dL (8.4-10.2); Carbon Dioxide 31 mmol/L (22-30); Chloride 90 mmol/L (98-107); Estimated CRCL calculation 74 ml/min; Estimated Glomerular Filt Rate > 60; Glucose 100 mg/dL (65-110); Potassium 3.5 mmol/L (3.4-5.0); Sodium 125 mmol/L (137-145)
[2023-11-22 17:26] LABS: Prealbumin 11.1 mg/dL (17.6-36.0)
[2023-11-22 17:35] LABS: Iron 47 ug/dL (49-181)
[2023-11-22 17:45] LABS: Percent Iron Saturation 29 % (20-50)
[2023-11-22 17:54] LABS: Creatinine Urine 81.6 mg/dL; Urea Random Urine 589 MG/DL
[2023-11-22 18:03] LABS: Sodium Urine Random 74 meq/L
[2023-11-22 18:13] LABS: Influenza A QL RT-PCR Negative (Negative); Influenza B QL RT-PCR Negative (Negative); SARS-CoV-2 RNA PCR Negative (Negative)
[2023-11-22 18:30] LABS: MRSA (PCR) NOT DETECTED (NOT DETECTE)
[2023-11-22] MEDS: FUROSEMIDE INJ 40 MG/4 ML VIAL IV PUSH (19:49)
[2023-11-22 20:17] LABS: Free T4 Free Thyroxine Reflex 1.26 ng/dL (0.78-2.19)
--- NOTE | 2023-11-22 20:31 | ECG_ITS ---
Test Date: 2023-11-22 19:44:37 Measurements Intervals [place] Rate: 91 P: 19 NE: 136 QRS: 33 QRSD: 80 T: 46 QT: 349 QTc: 429 Interpretive Statements SINUS RHYTHM BASELINE ARTIFACT- I, II, III, AVL, AVF, V5-V6 NORMAL ECG Compared to ECG 11/21/2023 19:23:56 HEART RATE HAS DECREASED Electronically Signed On 11-23-2023 06:29:06 CDT by Evgeny Garcia D.O.
[2023-11-22 21:16] LABS: Troponin I 0.021 ng/mL (0.000-0.034)
[2023-11-22 23:38] LABS: Total Triiodothyronine (T3) 0.71 NG/ML (0.97-1.69)
[2023-11-22 23:43] LABS: Anion Gap 7 mmol/L (4-12); Blood Urea Nitrogen 14 mg/dL (9-20); Carbon Dioxide 30 mmol/L (22-30); Chloride 90 mmol/L (98-107); Estimated CRCL calculation 74 ml/min; Estimated Glomerular Filt Rate > 60; Glucose 114 mg/dL (65-110); Potassium 3.2 mmol/L (3.4-5.0); Sodium 127 mmol/L (137-145)
[2023-11-23] VITALS (18 sets, daily range): BP systolic 122–155; BP diastolic 40–87; PULSE 83–102; RESP 17–25; TEMP 36.2–36.8; O2SAT 91–100; BMI 22.4
--- NOTE | 2023-11-23 | ECHO_ITS ---
Patient Info Name: Mat Montoya Age: 83 years : 1940 Gender: Male Ht: 70 in Wt: 166 lbs BSA: 1.93 m2 HR: 96 bpm BP: 146 / 59 mmHg Heart Rhythm: Sinus Rhythm Technical Quality: Fair Exam Date: 11/23/2023 2:40 PM Exam Location: Echo Lab Patient Status: Inpatient Admit Date: 11/23/2023 Staff Ordering Physician: Garima Jaramillo PA-C [employer] Pay Technician: Alivia Perez RDCS Attending Provider: Carlos Holman MD Referring Physician: Clint ONEILL; Exam Type: CA echo doppler color flow Study Info Indications J81.0 - Acute pulmonary edema Complete two-dimensional, color flow and Doppler transthoracic echocardiogram is performed with contrast to opacify the left ventricle and to improve the deliniation of the left ventricle endocardial borders. Contrast/Agitated Saline Contrast/Ag. Saline: Definity Amount: 2.00 ml Existing IV Access: Yes IV Access Condition: patent with no signs of infiltration Summary 1. Technically difficult study with limited views. 2. Left ventricular chamber dimension is normal. 3. Left ventricular systolic function is normal, estimated at 65-70%. 4. The left ventricular diastolic function is grade I diastolic dysfunction. 5. Right ventricular systolic function is normal. 6. There is moderate tricuspid valve regurgitation. 7. Normal inferior vena cava with >50% collapse upon inspiration consistent with normal right atrial pressure, 3 mmHg. Left Ventricle Left ventricular chamber dimension is normal. Left ventricular systolic function is normal, estimated at 65-70%. There is no increased left ventricular wall thickness. The left ventricular diastolic function is grade I diastolic dysfunction. Right Ventricle Right ventricular chamber dimension is normal. Right ventricular systolic function is normal. Left Atria Left atrial chamber dimension is normal. Right Atria Right atrial chamber dimension is normal. Atrial Septum Intact interatrial septum visualized by color flow imaging. Aortic Valve The aortic valve is probable trileaflet. There is no aortic valve regurgitation. There is moderate aortic valve calcification. Pulmonic Valve The pulmonic valve is not well visualized. Mitral Valve There is trace mitral valve regurgitation. Tricuspid Valve There is moderate tricuspid valve regurgitation. Pericardium/Pleural There is no pericardial effusion. Inferior Vena Cava Normal inferior vena cava with >50% collapse upon inspiration consistent with normal right atrial pressure, 3 mmHg. Aorta The aortic root size at the sinus of Valsalva is normal. Tricuspid Valve Name Value Normal Estimated PAP/RSVP RA Pressure 3 mmHg <=5 Report Signatures
[2023-11-23] MEDS: POTASSIUM CHLORIDE 20 MEQ ER TABLET 40 MEQ PO (00:16)
[2023-11-23] MEDS: CALCIUM GLUCONATE 1,000 MG/10 ML VIAL 500 MG IV PUSH (01:07)
[2023-11-23 04:57] LABS: Alveolar/Arterial O2 Gradient 352.5 mmHg; Carboxyhemoglobin 1.7 % THb (0-2.0); Fractional Inspired Oxygen 65 %; HCO3 ABG 30.7 mEq/l (22.0-26.0); Methemoglobin ABG 0.4 %THb (0-1.5); Oxygen Content ABG 10.8 %vol (16.0-22.0); Oxygen Saturation ABG 91.9 % (95.0-100.0); Oxyhemoglobin 88.4 % THb (90.0-100.0); PCO2 ABG 46.2 mmHg (35.0-45.0); PO2 ABG 60.7 mmHg (80.0-100.0); PO2 FiO2 Ratio Arterial Blood 0.93 %; Reduced Hemoglobin 9.5 %THb (0-5.0); Total Hemoglobin 8.6 g/dL (12.0-18.0); pH ABG 7.441 (7.350-7.450)
[2023-11-23 04:58] LABS: Site Drawn LEFT RADIAL
[2023-11-23 04:59] LABS: Device HIGH FLOW THERAPY; Modified Allen's Test Pass
[2023-11-23 05:02] LABS: Basophils Percent Auto 0.2 % (0.2-1.2); Eosinophils Percent Auto 0.2 % (0-4.4); Hematocrit 25.3 % (42.0-52.0); Hemoglobin 8.3 g/dL (14.0-18.0); Immature Granulocyte Absolute 0.16 K/mm3 (0.00-0.031); Immature Granulocyte Percent A 1.9 % (0-0.5); Lymphocytes Absolute Auto 1.01 K/mm3 (0.9-3.2); Lymphocytes Percent Auto 11.9 % (18.3-44.2); Mean Corpuscular HGB Conc 32.8 g/dl (32-36); Mean Corpuscular Hemoglobin 33.9 pg (26-34); Mean Corpuscular Volume 103.3 fl (80-100); Mean Platelet Volume 8.5 fl (7.4-10.4); Monocytes Absolute Auto 0.9 K/mm3 (0.1-0.6); Monocytes Percent Auto 10.2 % (2.6-8.5); Neutrophils Absolute Auto 6.4 K/mm3 (1.3-6.7); Neutrophils Percent Auto 75.6 % (45.5-73.1); Platelet Count Result 240 k/mm3 (150-375); Red Blood Count 2.45 M/mm3 (4.6-6.20); Red Cell Distribution Width 18.8 % (11.5-14.5); White Blood Count 8.5 K/mm3 (4.5-10.0)
[2023-11-23 05:16] LABS: INR 1.2; Prothrombin Time 15.2 Seconds (11.1-14.7)
[2023-11-23 05:17] LABS: Anion Gap 5 mmol/L (4-12); Blood Urea Nitrogen 13 mg/dL (9-20); Calcium 8.3 mg/dL (8.4-10.2); Carbon Dioxide 32 mmol/L (22-30); Chloride 89 mmol/L (98-107); Estimated CRCL calculation 74 ml/min; Estimated Glomerular Filt Rate > 60; Glucose 112 mg/dL (65-110); Phosphorus 3.5 mg/dL (2.5-4.5); Potassium 3.7 mmol/L (3.4-5.0); Sodium 126 mmol/L (137-145)
[2023-11-23] MEDS: LEVOTHYROXINE SODIUM 100 MCG TABLET PO (06:28)
[2023-11-23] MEDS: CEFEPIME 2 GM/NS 50 ML 2 GM/50 ML BAG IVPB ×3 (06:28→22:34)
--- NOTE | 2023-11-23 09:00 | WPDCNINT ---
Assessment and Plan Assessment and plan (1) Acute and chronic respiratory failure with hypoxia: Code(s): J96.21 - Acute and chronic respiratory failure with hypoxia Status: Acute Assessment and Plan: Acute on chronic respiratory failure likely related to large right pleural effusion, could be related to pneumonia, COPD exacerbation, underlying lung malignancy -continue high-flow therapy at this time, maintain O2 sats > 92% Patient will require thoracentesis today, will discuss with IR (patient did receive Eliquis on 11/21 ER prior to transfer to the ICU -continue bronchodilators -chest x-ray reviewed 11/20/2023: CTA chest IMPRESSION: 1. No pulmonary embolism. 2. large right hydropneumothorax with decrease in size of the gas component since the prior study. 3. Associated near complete collapse of the right lung with 3 x 2 cm region of decreased enhancement within the collapsed portion of the right lung suspicious for pneumonia or malignancy. 4. Small left pleural effusion with perihilar predominant groundglass and septal line thickening in the left lung which could represent pulmonary edema or pneumonia. 5. Cholelithiasis (2) Hydropneumothorax: Code(s): J94.8 - Other specified pleural conditions Status: Acute Assessment and Plan: Patient has had multiple episodes of pleural effusion requiring thoracentesis, he was recommended to have a pleural VAC as an outpatient at [facility]. -Patient has been accepted to the ICU at [facility] by Dr. Langley, awaiting bed. Patient gets all his care at [facility] and is being transferred for similar reason. (3) Hyponatremia: Code(s): E87.1 - Hypo-osmolality and hyponatremia Status: Acute Assessment and Plan: Multifactorial -will place patient on sodium tablets (4) Adenocarcinoma of right lung: Code(s): C34.91 - Malignant neoplasm of unspecified part of right bronchus or lung Status: Acute Assessment and Plan: Follows up with Dr. Carr for right lung adenocarcinoma s/p chemoRT w/ carboplatin and paclitaxel (-11/2022), durvalumab (02/2023-04/2023), carboplatin + pemetrexed (05/2023-06/2023), and more recently has been treated with Abraxane (09/2023 - Last received C2 on 10/16 Patient has history of malignant pleural effusions, last thoracentesis was on 10/23/2023 -there has been some talks about PleurX catheter (5) Chronic obstructive pulmonary disease: Code(s): J44.9 - Chronic obstructive pulmonary disease, unspecified Status: Acute Assessment and Plan: History of COPD, continue bronchodilators and home Trelegy -continue oxygen support (6) Hypothyroidism: Code(s): E03.9 - Hypothyroidism, unspecified Status: Acute Assessment and Plan: Continue levothyroxine (7) Benign prostatic hyperplasia: Code(s): N40.0 - Benign prostatic hyperplasia without lower urinary tract symptoms Status: Acute Assessment and Plan: Continue Flomax Plan DVT prophylaxis: Continue SCDs, Holding Eliquis for thoracentesis Stress ulcer prophylaxis: Not indicated Nutrition: NPO for now Code Status: Full code Critical Care Time Spent: 49 minutes Due to a high probability of clinically significant, life threatening deterioration, the patient required my highest level of preparedness to intervene emergently and I personally spent this critical care time directly and personally managing the patient. This critical care time included obtaining a history; examining the patient; pulse oximetry; ordering and review of studies; arranging urgent treatment with development of a management plan; evaluation of patient's response to treatment; frequent reassessment; and discussions with other providers. It was exclusive of separately billable procedures and treating other patients and teaching time. Please see Assessment and Plan section and the rest of the note for further information on patient assessment and treatment This
[2023-11-23] MEDS: FLUTICASONE/UMECLIDIN/VILANTER 200-62.5-25 MCG ELLIPTA 1 PUFF INHALATION (09:15)
[2023-11-23] MEDS: CHOLECALCIFEROL 1,000 UNITS TABLET 2000 UNITS PO (09:22)
[2023-11-23] MEDS: TAMSULOSIN HCL 0.4 MG CAPSULE PO (09:22)
[2023-11-23] MEDS: AZITHROMYCIN 500 MG/NS 250 ML 500 MG/250 ML BAG 250 MG IVPB (09:23)
--- NOTE | 2023-11-23 09:57 | PC.NURSE ---
Updated patient's spouse on plan of care and patient status.
--- NOTE | 2023-11-23 10:28 | PC.NURSE ---
Patient's spouse updated on thoracentesis.
--- NOTE | 2023-11-23 10:35 | PC.NURSE ---
[facility] transfer center updated on patient status.
--- NOTE | 2023-11-23 11:44 | PC.NURSE ---
Family to bedside. Updated on plan of care.
[2023-11-23 11:50] LABS: Albumin Level 2.8 g/dL (3.5-5.1); Glucose 102 mg/dL (65-110); Lactate Dehydrogenase 413 U/L (120-246)
[2023-11-23 11:50] LABS: Pleural fluid source Pleural fluid
[2023-11-23 11:51] LABS: Appearance Pleural Fluid Cloudy (Clear); Color Pleural Fluid Red (Colorless); Lymphocytes Pleural Fluid 32 %; Macrophages Pleural Fluid 44 %; Mesothelial Cells Pleural Flui 4 %; Neutrophils Pleural Fluid 4 % (0-25); Nucleated Cell Pleural Fluid 303 /uL (0-1000); Other Cells Pleural Fluid 16 %; RBC Pleural Fluid 32000 /uL (0-10000)
[2023-11-23] MEDS: SODIUM CHLORIDE 500 MG TABLET PO (12:45)
--- NOTE | 2023-11-23 16:39 | PM.IMPN ---
Progress Note: A&P Assessment and Plan (1) Acute and chronic respiratory failure with hypoxia: Code(s): J96.21 - Acute and chronic respiratory failure with hypoxia Status: Acute Assessment and Plan: Acute on chronic respiratory failure likely related to large right pleural effusion, could be related to pneumonia, COPD exacerbation, underlying lung malignancy -continue high-flow therapy at this time, maintain O2 sats > 92% Patient will require thoracentesis today, will discuss with IR (patient did receive Eliquis on 11/21 ER prior to transfer to the ICU -continue bronchodilators -chest x-ray reviewed CT chest reviewed (2) Hydropneumothorax: Code(s): J94.8 - Other specified pleural conditions Status: Acute Assessment and Plan: Patient has had multiple episodes of pleural effusion requiring thoracentesis, he was recommended to have a pleural VAC as an outpatient at [facility]. -Patient has been accepted to the ICU at [facility] by Dr. Langley, awaiting bed. Patient's care domiciled at [facility] (3) Hyponatremia: Code(s): E87.1 - Hypo-osmolality and hyponatremia Status: Acute Assessment and Plan: Multifactorial on sodium tablets (4) Adenocarcinoma of right lung: Code(s): C34.91 - Malignant neoplasm of unspecified part of right bronchus or lung Status: Acute Assessment and Plan: Follows up with Dr. Carr for right lung adenocarcinoma s/p chemoRT w/ carboplatin and paclitaxel (-11/2022), durvalumab (02/2023-04/2023), carboplatin + pemetrexed (05/2023-06/2023), and more recently has been treated with Abraxane (09/2023 - Last received C2 on 10/16 Patient has history of malignant pleural effusions, last thoracentesis was on 10/23/2023 awaiting transfer to [facility] (5) Chronic obstructive pulmonary disease: Code(s): J44.9 - Chronic obstructive pulmonary disease, unspecified Status: Acute Assessment and Plan: History of COPD, continue bronchodilators and home Trelegy -continue oxygen support (6) Hypothyroidism: Code(s): E03.9 - Hypothyroidism, unspecified Status: Acute Assessment and Plan: Continue levothyroxine (7) Benign prostatic hyperplasia: Code(s): N40.0 - Benign prostatic hyperplasia without lower urinary tract symptoms Status: Acute Assessment and Plan: Continue Flomax Plan DVT prophylaxis: Continue SCDs, Holding Eliquis for thoracentesis Nutrition: NPO for now Code Status: Full code Subjective Date/time seen: 11/23/23 16:39 Interval history: Patient was comfortable at bedside, awaiting thoracentesis noted he uses 2 liter of oxygen at baseline Review of Systems Review of Systems: 12 systems were reviewed and are negative except for as per HPI. All systems reviewed & are unremarkable except as noted in HPI and below Exam Narrative: General: no acute distress HEENT:? Pupils equal and reactive, sclera is clear, moist oral mucosa Neck:? Supple Respiratory:? Decreased air entry on right side, coarse breath sounds on left no wheezing noted Cardiac:? S1-S2 was normal, regular rate and rhythm Abdomen:? Soft, nontender, nondistended, normoactive bowel sounds Extremities:?trace edema in the lower extremities, palpable pedal pulses Neuro:? Patient is awake, alert, oriented, nonfocal Skin:? Bruising noted on bilateral upper extremities Objective Data Vital Signs Vital Signs: Vital Signs - 24 hr 11/22/23 18:00 11/22/23 18:00 11/22/23 20:00 Temperature 97.5 F L 97.9 F Pulse Rate 102 H 102 H 95 Respiratory Rate 24 H 27 H Blood Pressure 138/72 179/82 H Pulse Oximetry 94 94 Oxygen Delivery Oxygen Flow Rate Fraction of Inspired Oxygen 11/22/23 20:00 11/22/23 21:32 11/22/23 20:00 Temperature Pulse Rate 91 100 Respiratory Rate 22 H Blood Pressure Pulse Oximetry 94 94 Oxygen Delivery High Flow Therapy with Na High Flow Therapy with Na Oxygen Flow Rate
[2023-11-23] MEDS: PERFLUTREN LIPID MICROSPHERES 1.5 ML VIAL DILUTED TO 10 ML TOTAL VOLUME IV PUSH (17:18)
--- NOTE | 2023-11-23 17:18 | IVDEFINITY ---
Prior to administration of IV Definity the patient was educated on the risks and benefits of the imaging enhancing agent including potential adverse side effects. The patient verbalized understanding. Allergies were verified. No exclusion criteria were identified and at least one of the following inclusion criteria were met: 1) physician request, 2) patient technically difficult to image (per the [place] [employer] guidelines of two or more segments not discernable within the apical view), or 3) questionable left ventricular function. ?
[2023-11-23] MEDS: APIXABAN 2.5 MG TABLET PO (20:09)
--- NOTE | 2023-11-23 23:47 | PC.NURSE ---
[place] hotline called and was given an update on the patient's condition. No bed available at this time.
[2023-11-24] VITALS (22 sets, daily range): BP systolic 113–151; BP diastolic 50–101; PULSE 83–118; RESP 16–27; TEMP 36.5–36.7; O2SAT 89–100
[2023-11-24] MEDS: CEFEPIME 2 GM/NS 50 ML 2 GM/50 ML BAG IVPB ×3 (06:13→21:17)
[2023-11-24] MEDS: LEVOTHYROXINE SODIUM 100 MCG TABLET PO (06:14)
[2023-11-24 06:17] LABS: Basophils Percent Auto 0.3 % (0.2-1.2); Eosinophils Percent Auto 0.3 % (0-4.4); Hematocrit 25.6 % (42.0-52.0); Hemoglobin 8.3 g/dL (14.0-18.0); Immature Granulocyte Absolute 0.18 K/mm3 (0.00-0.031); Immature Granulocyte Percent A 2.4 % (0-0.5); Lymphocytes Absolute Auto 1.05 K/mm3 (0.9-3.2); Lymphocytes Percent Auto 13.8 % (18.3-44.2); Mean Corpuscular HGB Conc 32.4 g/dl (32-36); Mean Corpuscular Hemoglobin 33.9 pg (26-34); Mean Corpuscular Volume 104.5 fl (80-100); Mean Platelet Volume 8.9 fl (7.4-10.4); Monocytes Absolute Auto 0.9 K/mm3 (0.1-0.6); Neutrophils Absolute Auto 5.4 K/mm3 (1.3-6.7); Neutrophils Percent Auto 71.2 % (45.5-73.1); Platelet Count Result 250 k/mm3 (150-375); Red Blood Count 2.45 M/mm3 (4.6-6.20); Red Cell Distribution Width 18.6 % (11.5-14.5); White Blood Count 7.6 K/mm3 (4.5-10.0)
[2023-11-24 06:28] LABS: Alanine Aminotransferase 22 U/L (6-50); Albumin Level 2.9 g/dL (3.5-5.1); Alkaline Phosphatase 101 U/L (38-126); Anion Gap 3 mmol/L (4-12); Aspartate Amino Transferase 32 U/L (17-59); Bilirubin,Total 0.7 mg/dL (0.2-1.3); Blood Urea Nitrogen 12 mg/dL (9-20); Calcium 8.1 mg/dL (8.4-10.2); Carbon Dioxide 34 mmol/L (22-30); Chloride 87 mmol/L (98-107); Estimated CRCL calculation 79 ml/min; Estimated Glomerular Filt Rate > 60; Glucose 103 mg/dL (65-110); Phosphorus 2.9 mg/dL (2.5-4.5); Potassium 3.9 mmol/L (3.4-5.0); Sodium 124 mmol/L (137-145)
[2023-11-24] MEDS: FLUTICASONE/UMECLIDIN/VILANTER 200-62.5-25 MCG ELLIPTA 1 PUFF INHALATION (07:29)
--- NOTE | 2023-11-24 08:23 | WPDINTPN ---
Progress Note: A&P Assessment and Plan (1) Acute and chronic respiratory failure with hypoxia: Code(s): J96.21 - Acute and chronic respiratory failure with hypoxia Status: Acute Assessment and Plan: Acute on chronic respiratory failure likely related to large right pleural effusion, could be related to pneumonia, COPD exacerbation, underlying lung malignancy -continue high-flow therapy at this time, maintain O2 sats > 92% Patient will require thoracentesis today, will discuss with IR (patient did receive Eliquis on 11/21 ER prior to transfer to the ICU -continue bronchodilators -chest x-ray reviewed -will IR to repeat thoracentesis 11/20/2023: CTA chest IMPRESSION: 1. No pulmonary embolism. 2. large right hydropneumothorax with decrease in size of the gas component since the prior study. 3. Associated near complete collapse of the right lung with 3 x 2 cm region of decreased enhancement within the collapsed portion of the right lung suspicious for pneumonia or malignancy. 4. Small left pleural effusion with perihilar predominant groundglass and septal line thickening in the left lung which could represent pulmonary edema or pneumonia. 5. Cholelithiasis (2) Hydropneumothorax: Code(s): J94.8 - Other specified pleural conditions Status: Acute Assessment and Plan: Patient has had multiple episodes of pleural effusion requiring thoracentesis, he was recommended to have a pleural VAC as an outpatient at [facility]. -Patient has been accepted to the ICU at [facility] by Dr. Langley, awaiting bed. Patient gets all his care at [facility] and is being transferred for similar reason. 11/22: Right-sided thoracentesis with removal of 1000 mL and serosanguineous fluid 11/23: Chest x-ray shows complete whiteout of the right side, will have Interventional Radiology repeat thoracentesis today (3) Hyponatremia: Code(s): E87.1 - Hypo-osmolality and hyponatremia Status: Acute Assessment and Plan: Multifactorial -consulted nephrology for hyponatremia -recommended Lasix with sodium chloride 1 g tablet, administer at the same time (4) Adenocarcinoma of right lung: Code(s): C34.91 - Malignant neoplasm of unspecified part of right bronchus or lung Status: Acute Assessment and Plan: Follows up with Dr. Carr for right lung adenocarcinoma s/p chemoRT w/ carboplatin and paclitaxel (), durvalumab (02/2023-04/2023), carboplatin + pemetrexed (05/2023-06/2023), and more recently has been treated with Abraxane (09/2023 - Last received C2 on 10/16 Patient has history of malignant pleural effusions, last thoracentesis was on 10/23/2023 -there has been some talks about PleurX catheter (5) Chronic obstructive pulmonary disease: Code(s): J44.9 - Chronic obstructive pulmonary disease, unspecified Status: Acute Assessment and Plan: History of COPD, continue bronchodilators and home Trelegy -continue oxygen support (6) Hypothyroidism: Code(s): E03.9 - Hypothyroidism, unspecified Status: Acute Assessment and Plan: Continue levothyroxine (7) Benign prostatic hyperplasia: Code(s): N40.0 - Benign prostatic hyperplasia without lower urinary tract symptoms Status: Acute Assessment and Plan: Continue Flomax Plan DVT prophylaxis: Continue SCDs, Holding Eliquis for thoracentesis Stress ulcer prophylaxis: Not indicated Nutrition: NPO for now Code Status: Full code Critical Care Time Spent: 33 minutes 11/22: Discussed with patient and son and updated them with his condition and plan of care. I answered all the questions. They are aware that patient has been accepted to [facility] and awaiting a bed. Due to a high probability of clinically significant, life threatening deterioration, the patient required my highest level of preparedness to intervene emergently and I personally spent this critical care time directly and personally man
[2023-11-24] MEDS: SODIUM CHLORIDE 1 GM TABLET PO ×2 (09:02→22:02)
[2023-11-24] MEDS: FUROSEMIDE INJ 40 MG/4 ML VIAL IV PUSH (09:09)
[2023-11-24 09:10] LABS: INR 1.1; Partial Thromboplastin Time 32.3 Seconds (22.3-36.8)
[2023-11-24] MEDS: CHOLECALCIFEROL 1,000 UNITS TABLET 2000 UNITS PO (09:10)
[2023-11-24] MEDS: AZITHROMYCIN 500 MG/NS 250 ML 500 MG/250 ML BAG 250 MG IVPB (09:10)
[2023-11-24] MEDS: TAMSULOSIN HCL 0.4 MG CAPSULE PO (09:10)
--- NOTE | 2023-11-24 09:20 | PM.CNNEP ---
Assessment and Plan Assessment and plan (1) Hyponatremia: Code(s): E87.1 - Hypo-osmolality and hyponatremia Status: Acute Assessment and Plan: relatively acute 132 - 135mmols/L in the last month (Nov 2023) prior to this November 2023, sodium normal multiple risk factors: lung cancer COPD pain pain medications (narcotics) thyroid disease BPH fluid overload CHF(?) follow-up on pending Echo trial of diuresis (following salt tablet administration) follow trend of repeat sodium levels (2) Acute and chronic respiratory failure with hypoxia: Code(s): J96.21 - Acute and chronic respiratory failure with hypoxia Status: Acute Assessment and Plan: presumably secondary to large right pleural effusion as noted by admission imaging cannot discount pneumonia, COPD, and underlying lung malignancy playing a role continue supplemental oxygen ongoing bronchodilator therapy trial of diuresis (3) Hydropneumothorax: Code(s): J94.8 - Other specified pleural conditions Status: Acute Assessment and Plan: known and recurrent history of this issue the was some discussion about PleurX caheter placement on last office visit with Pulmonary presumsed etiology of #2 s/p right thoracentesis (on 11/22) with ~ 1000cc fluid removed admission CTA of chest noted: no pulmonary embolism large right hydropneumothorax with decrease in size of the gas component since the prior study associated near complete collapse of the right lung with 3 x 2 cm region of decreased enhancement within the collapsed portion of the right lung suspicious for pneumonia or malignancy small left pleural effusion with perihilar predominant groundglass and septal line thickening in the left lung which could represent pulmonary edema or pneumonia. previous pleural fluid analysis (at [facility]) was positive for adenocarcinoma of the lung CXR today (11/23) still with complete whiteout of right lung noted plans for repeat thoracentesis today (4) Adenocarcinoma of right lung: Code(s): C34.91 - Malignant neoplasm of unspecified part of right bronchus or lung Status: Acute Assessment and Plan: follows with Dr. Carr for management of right lung adenocarcinoma s/p chemotherapy (has been receiving since 2022) complicated by recurrent right malignant pleural effusions requiring thoracentesis noted discussion about possible PleurX catheter placement (5) Chronic obstructive pulmonary disease: Code(s): J44.9 - Chronic obstructive pulmonary disease, unspecified Status: Acute Assessment and Plan: known diagnosis on bronchodilator therapy and Trelegy continue oxygen support (6) Anemia: Code(s): D64.9 - Anemia, unspecified Status: Acute Assessment and Plan: suspect related to known malignancy and aute illness anticoagulation on hold follow trend of H/H (7) Benign prostatic hyperplasia: Code(s): N40.0 - Benign prostatic hyperplasia without lower urinary tract symptoms Status: Chronic Assessment and Plan: continue Flomax therapy Case discussed with Dr. Luis I will continue to follow the patient with you while he remains hospitalized and make further recommendations as deemed necessary. Thank you for allowing me to participate in the care of this patient. History of Present Illness Reason for Consult Consult date: 11/24/23 Reason for consult: hyponatremia (acute on chronic) Chief Complaint Chief complaint: Respiratory difficuly, pleural effusion History of Present Illness Narrative: The patient is an 83-year-old male with extensive past medical history as outlined below who presented to [facility] from his rehab facility due to complaints of shortness of breath and chest pain. The patient was recently hospitalized at [facility] after sustaining a right boyer
--- NOTE | 2023-11-24 09:20 | P.CONNP_ITS ---
Assessment and Plan Assessment and plan (1) Hyponatremia: Code(s): E87.1 - Hypo-osmolality and hyponatremia Status: Acute Assessment and Plan: * relatively acute * 132 - 135mmols/L in the last month (Nov 2023) * prior to this November 2023, sodium normal * multiple risk factors: * lung cancer * COPD * pain * pain medications (narcotics) * thyroid disease * BPH * fluid overload * CHF(?) * follow-up on pending Echo * trial of diuresis (following salt tablet administration) * follow trend of repeat sodium levels (2) Acute and chronic respiratory failure with hypoxia: Code(s): J96.21 - Acute and chronic respiratory failure with hypoxia Status: Acute Assessment and Plan: * presumably secondary to large right pleural effusion as noted by admission imaging * cannot discount pneumonia, COPD, and underlying lung malignancy playing a role * continue supplemental oxygen * ongoing bronchodilator therapy * trial of diuresis (3) Hydropneumothorax: Code(s): J94.8 - Other specified pleural conditions Status: Acute Assessment and Plan: * known and recurrent history of this issue * the was some discussion about PleurX caheter placement on last office visit with Pulmonary * presumsed etiology of #2 * s/p right thoracentesis (on 11/22) with ~ 1000cc fluid removed * admission CTA of chest noted: * no pulmonary embolism * large right hydropneumothorax with decrease in size of the gas component since the prior study * associated near complete collapse of the right lung with 3 x 2 cm region of decreased enhancement within the collapsed portion of the right lung suspicious for pneumonia or malignancy * small left pleural effusion with perihilar predominant groundglass and septal line thickening in the left lung which could represent pulmonary edema or pneumonia. * previous pleural fluid analysis (at [facility]) was positive for adenocarcinoma of the lung * CXR today (11/23) still with complete whiteout of right lung * noted plans for repeat thoracentesis today (4) Adenocarcinoma of right lung: Code(s): C34.91 - Malignant neoplasm of unspecified part of right bronchus or lung Status: Acute Assessment and Plan: * follows with Dr. Carr for management of right lung adenocarcinoma * s/p chemotherapy (has been receiving since 2022) * complicated by recurrent right malignant pleural effusions requiring thoracentesis * noted discussion about possible PleurX catheter placement (5) Chronic obstructive pulmonary disease: Code(s): J44.9 - Chronic obstructive pulmonary disease, unspecified Status: Acute Assessment and Plan: * known diagnosis * on bronchodilator therapy and Trelegy * continue oxygen support (6) Anemia: Code(s): D64.9 - Anemia, unspecified Status: Acute Assessment and Plan: * suspect related to known malignancy and aute illness * anticoagulation on hold * follow trend of H/H (7) Benign prostatic hyperplasia: Code(s): N40.0 - Benign prostatic hyperplasia without lower urinary tract symptoms Status: Chronic Assessment and Plan: * continue Flomax therapy Case discussed with Dr. Luis I will continue to follow the patient with you while he remains hospitalized and make further recommendations as deemed necessary. Thank you for allowing me to participate in the care of this patient. History of Present Illness Reason for Cons
--- NOTE | 2023-11-24 10:51 | PCFNICU ---
ICU Rounding Note: Pt current nutrition is NPO. Nutrition recommendation: advance as tolerated per MD orders with Ensure Compact BID. Last recorded weight is 68.4 kg, down from 70.9 kg on admit. Bowel Motility: No BM noted. Labs Reviewed:Cr 0.6,Na 124, Alb 2.9 Meds Noted:Cefepime, Vit D Skin: WNL Additional Notes: Patient currently NPO. Patient had thoracentesis 11/22 removing 1000 ml. Will remain NPO for possible further testing. Nephrology consult. Following daily in ICU rounds. Monitoring intakes, weights, labs, diet order, plan of care Follow up in 3 days.
--- NOTE | 2023-11-24 15:09 | PM.IMPN ---
Progress Note: A&P Assessment and Plan (1) Acute and chronic respiratory failure with hypoxia: Code(s): J96.21 - Acute and chronic respiratory failure with hypoxia Status: Acute Assessment and Plan: Acute on chronic respiratory failure likely related to large right pleural effusion, could be related to pneumonia, COPD exacerbation, underlying lung malignancy -continue high-flow therapy at this time, maintain O2 sats > 92% Patient will require thoracentesis today, will discuss with IR (patient did receive Eliquis on 11/21 ER prior to transfer to the ICU -continue bronchodilators -CTA chest showed large right hydropneumothorax with decrease in side if the gas component since the prior study with small left pleural effusion with ministerio perihilar predominant groundglass and septal line thickening in the left lung which could represent pulmonary edema or pneumonia For repeat thoracentesis today (2) Hydropneumothorax: Code(s): J94.8 - Other specified pleural conditions Status: Acute Assessment and Plan: Patient has had multiple episodes of pleural effusion requiring thoracentesis, he was recommended to have a pleural VAC as an outpatient at [facility]. -Patient has been accepted to the ICU at [facility] by Dr. Langley, awaiting bed. Patient gets all his care at [facility] and is being transferred for similar reason. for repeat thoracentesis today (3) Hyponatremia: Code(s): E87.1 - Hypo-osmolality and hyponatremia Status: Acute Assessment and Plan: Multifactorial -consulted nephrology for hyponatremia -recommended Lasix with sodium chloride 1 g tablet, administer at the same time (4) Adenocarcinoma of right lung: Code(s): C34.91 - Malignant neoplasm of unspecified part of right bronchus or lung Status: Acute Assessment and Plan: Follows up with Dr. Carr for right lung adenocarcinoma s/p chemoRT w/ carboplatin and paclitaxel (-11/2022), durvalumab (02/2023-04/2023), carboplatin + pemetrexed (05/2023-06/2023), and more recently has been treated with Abraxane (09/2023 - Last received C2 on 10/16 Patient has history of malignant pleural effusions, with recurrent pleural effusions and thoracentesis to continue repeat thoracentesis and awaiting transfer to [facility] (5) Chronic obstructive pulmonary disease: Code(s): J44.9 - Chronic obstructive pulmonary disease, unspecified Status: Acute Assessment and Plan: History of COPD, continue bronchodilators and home Trelegy -continue oxygen support (6) Hypothyroidism: Code(s): E03.9 - Hypothyroidism, unspecified Status: Acute Assessment and Plan: Continue levothyroxine (7) Benign prostatic hyperplasia: Code(s): N40.0 - Benign prostatic hyperplasia without lower urinary tract symptoms Status: Acute Assessment and Plan: Continue Flomax Plan DVT prophylaxis: Continue SCDs, Holding Eliquis for thoracentesis Stress ulcer prophylaxis: Not indicated Nutrition: NPO for now Code Status: Full code Subjective Date/time seen: 11/24/23 15:09 Interval history: Patient noted he feel worse today with his SOB Review of Systems Review of Systems: 12 systems were reviewed and are negative except for as per HPI. All systems reviewed & are unremarkable except as noted in HPI and below Exam Narrative: General: Appears acutely ill appearing HEENT:? Pupils equal and reactive, sclera is clear, moist oral mucosa Neck:? Supple Respiratory:? Decreased air entry on right side, coarse breath sounds on left no wheezing noted Cardiac:? S1-S2 was normal, regular rate and rhythm Abdomen:? Soft, nontender, nondistended, normoactive bowel sounds Extremities:?trace edema in the lower extremities, palpable pedal pulses Neuro:? Patient is awake, alert, oriented, nonfocal, follows simple commands and answers to questions appropriately Skin:? Bruising noted on bilateral upper extremities
[2023-11-24 15:28] LABS: Osmolality, Urine 484 mOsm/kg (50-1200)
[2023-11-24 15:43] LABS: Anion Gap 3 mmol/L (4-12); Blood Urea Nitrogen 13 mg/dL (9-20); Calcium 7.9 mg/dL (8.4-10.2); Carbon Dioxide 32 mmol/L (22-30); Chloride 81 mmol/L (98-107); Estimated CRCL calculation 79 ml/min; Estimated Glomerular Filt Rate > 60; Glucose 101 mg/dL (65-110); Potassium 3.3 mmol/L (3.4-5.0); Sodium 116 mmol/L (137-145)
--- NOTE | 2023-11-24 15:47 | PC.NURSE ---
Dr. Marcelino called, telephone orders received and read back. Orders placed.
[2023-11-24] MEDS: POTASSIUM CHLORIDE 20 MEQ PACKET (FOR LIQUID) 40 MEQ FEED TUBE (16:09)
--- NOTE | 2023-11-24 17:18 | PC.NURSE ---
Called Dr. Marcelino to confirm order of hypertonic saline at 65 ml/hr d/t pump saying soft limit is 50 ml/hr. stated yes that is correct rate based on pt's weight. Will place Na order 1 hour post infusion
[2023-11-24] MEDS: SODIUM CHLORIDE 3% 195 ML 65 ML IV CONT (17:20)
[2023-11-24] MEDS: ACETAMINOPHEN 325 MG TABLET 650 MG PO (19:57)
[2023-11-24] MEDS: IPRATROPIUM BR 0.02% INH SOLN 0.5 MG/2.5 ML VIAL INHALATION (20:36)
[2023-11-24] MEDS: ACETYLCYSTEINE 20% INHAL SOLN 800 MG/4 ML VIAL 200 MG INHALATION (20:36)
[2023-11-24] MEDS: LEVALBUTEROL NEB 1.25 MG/3 ML INHALATION (20:36)
[2023-11-24] MEDS: DORNASE ALFA INH SOLN 1 MG/ML 2.5 ML AMP 2.5 MG INHALATION (20:42)
[2023-11-24 21:30] LABS: Sodium 124 mmol/L (137-145)
[2023-11-25] VITALS (28 sets, daily range): BP systolic 104–141; BP diastolic 46–72; PULSE 72–110; RESP 14–31; TEMP 36.2–36.9; O2SAT 89–100
[2023-11-25] MEDS: ACETYLCYSTEINE 20% INHAL SOLN 800 MG/4 ML VIAL 200 MG INHALATION ×4 (02:52→20:15)
[2023-11-25] MEDS: IPRATROPIUM BR 0.02% INH SOLN 0.5 MG/2.5 ML VIAL INHALATION ×4 (02:52→20:16)
[2023-11-25] MEDS: LEVALBUTEROL NEB 1.25 MG/3 ML INHALATION ×4 (02:52→20:16)
[2023-11-25] MEDS: LEVOTHYROXINE SODIUM 100 MCG TABLET PO (06:05)
[2023-11-25] MEDS: CEFEPIME 2 GM/NS 50 ML 2 GM/50 ML BAG IVPB ×3 (06:05→21:04)
[2023-11-25 07:45] LABS: Basophils Percent Auto 0.4 % (0.2-1.2); Eosinophils Percent Auto 0.4 % (0-4.4); Hematocrit 27.6 % (42.0-52.0); Hemoglobin 8.7 g/dL (14.0-18.0); Immature Granulocyte Absolute 0.18 K/mm3 (0.00-0.031); Immature Granulocyte Percent A 2.3 % (0-0.5); Lymphocytes Percent Auto 11.5 % (18.3-44.2); Mean Corpuscular HGB Conc 31.5 g/dl (32-36); Mean Corpuscular Hemoglobin 33.9 pg (26-34); Mean Corpuscular Volume 107.4 fl (80-100); Mean Platelet Volume 8.9 fl (7.4-10.4); Monocytes Percent Auto 12.5 % (2.6-8.5); Neutrophils Absolute Auto 5.7 K/mm3 (1.3-6.7); Neutrophils Percent Auto 72.9 % (45.5-73.1); Platelet Count Result 272 k/mm3 (150-375); Red Blood Count 2.57 M/mm3 (4.6-6.20); Red Cell Distribution Width 19.4 % (11.5-14.5); White Blood Count 7.8 K/mm3 (4.5-10.0)
--- NOTE | 2023-11-25 07:47 | WPDINTPN ---
Progress Note: A&P Assessment and Plan (1) Acute and chronic respiratory failure with hypoxia: Code(s): J96.21 - Acute and chronic respiratory failure with hypoxia Status: Acute Assessment and Plan: Acute on chronic respiratory failure likely related to large right pleural effusion, could be related to pneumonia, COPD exacerbation, underlying lung malignancy -continue high-flow therapy at this time, maintain O2 sats > 92% -could be related to pleural effusion, mucus plugging, bronchial obstruction from malignancy -continue bronchodilators -continue Pulmozyme, Mucomyst nebs -chest physiotherapy -place the good lung down for better ventilation and perfusion -chest x-ray this morning: Stable whiteout of the right hemithorax with cut off of the right mainstem bronchus. Findings are consistent with large effusion and associated complete right lung atelectasis.Stable extensive pulmonary edema pattern versus pneumonia in the left lung 11/20/2023: CTA chest IMPRESSION: 1. No pulmonary embolism. 2. large right hydropneumothorax with decrease in size of the gas component since the prior study. 3. Associated near complete collapse of the right lung with 3 x 2 cm region of decreased enhancement within the collapsed portion of the right lung suspicious for pneumonia or malignancy. 4. Small left pleural effusion with perihilar predominant groundglass and septal line thickening in the left lung which could represent pulmonary edema or pneumonia. 5. Cholelithiasis (2) Hydropneumothorax: Code(s): J94.8 - Other specified pleural conditions Status: Acute Assessment and Plan: Patient has had multiple episodes of pleural effusion requiring thoracentesis, he was recommended to have a pleural VAC as an outpatient at [facility]. -Patient has been accepted to the ICU at [facility] by Dr. Langley, awaiting bed. Patient gets all his care at [facility] and is being transferred for similar reason. 11/22: Right-sided Thoracentesis with removal of 1000 mL of serosanguineous fluid 11/23: Repeat right-sided thoracentesis with removal of 1000 mL of serosanguineous fluid (3) Hyponatremia: Code(s): E87.1 - Hypo-osmolality and hyponatremia Status: Acute Assessment and Plan: Multifactorial -sodium dropped to 116 on 11/23, patient was given 3% saline -appreciate nephrology following the patient -continue sodium chloride 1 g b.i.d. -sodium level this morning is 122 (4) Adenocarcinoma of right lung: Code(s): C34.91 - Malignant neoplasm of unspecified part of right bronchus or lung Status: Acute Assessment and Plan: Follows up with Dr. Carr for right lung adenocarcinoma s/p chemoRT w/ carboplatin and paclitaxel (), durvalumab (02/2023-04/2023), carboplatin + pemetrexed (05/2023-06/2023), and more recently has been treated with Abraxane (09/2023 - Last received C2 on 10/16 Patient has history of malignant pleural effusions, last thoracentesis was on 10/23/2023 -there has been some talks about PleurX catheter (5) Chronic obstructive pulmonary disease: Code(s): J44.9 - Chronic obstructive pulmonary disease, unspecified Status: Acute Assessment and Plan: History of COPD, continue bronchodilators and home Trelegy -continue oxygen support (6) Hypothyroidism: Code(s): E03.9 - Hypothyroidism, unspecified Status: Acute Assessment and Plan: Continue levothyroxine (7) Benign prostatic hyperplasia: Code(s): N40.0 - Benign prostatic hyperplasia without lower urinary tract symptoms Status: Chronic Assessment and Plan: Continue Flomax Plan DVT prophylaxis: Continue SCDs, Holding Eliquis for thoracentesis Stress ulcer prophylaxis: Not indicated Nutrition: NPO for now Code Status: Full code Critical Care Time Spent: 32 minutes 11/22: Discussed with patient and son and updated them with his condition and plan of care. I answered all the questions
[2023-11-25 07:53] LABS: Alanine Aminotransferase 20 U/L (6-50); Albumin Level 3.2 g/dL (3.5-5.1); Alkaline Phosphatase 106 U/L (38-126); Anion Gap 5 mmol/L (4-12); Aspartate Amino Transferase 32 U/L (17-59); Bilirubin,Total 0.8 mg/dL (0.2-1.3); Blood Urea Nitrogen 16 mg/dL (9-20); Calcium 8.4 mg/dL (8.4-10.2); Carbon Dioxide 33 mmol/L (22-30); Chloride 84 mmol/L (98-107); Estimated CRCL calculation 70 ml/min; Estimated Glomerular Filt Rate > 60; Glucose 87 mg/dL (65-110); Magnesium 2.2 mg/dL (1.6-2.3); Potassium 3.3 mmol/L (3.4-5.0); Sodium 122 mmol/L (137-145)
[2023-11-25] MEDS: AZITHROMYCIN 500 MG/NS 250 ML 500 MG/250 ML BAG 250 MG IVPB (08:03)
[2023-11-25] MEDS: CHOLECALCIFEROL 1,000 UNITS TABLET 2000 UNITS PO (08:03)
[2023-11-25] MEDS: FUROSEMIDE INJ 40 MG/4 ML VIAL IV PUSH (08:03)
[2023-11-25] MEDS: TAMSULOSIN HCL 0.4 MG CAPSULE PO (08:03)
[2023-11-25] MEDS: POTASSIUM CHLORIDE 20 MEQ PACKET (FOR LIQUID) 40 MEQ PO ×2 (08:03→16:24)
[2023-11-25] MEDS: SODIUM CHLORIDE 1 GM TABLET PO ×2 (08:03→16:24)
[2023-11-25] MEDS: DORNASE ALFA INH SOLN 1 MG/ML 2.5 ML AMP 2.5 MG INHALATION ×2 (08:28→20:34)
[2023-11-25] MEDS: FLUTICASONE/UMECLIDIN/VILANTER 200-62.5-25 MCG ELLIPTA 1 PUFF INHALATION (08:33)
--- NOTE | 2023-11-25 10:32 | PM.PNNEP ---
Progress Note: A&P Assessment and Plan (1) Hyponatremia: Code(s): E87.1 - Hypo-osmolality and hyponatremia Status: Acute Assessment and Plan: mild improvement relatively acute 132 - 135mmols/L in the last month (Nov 2023) prior to this November 2023, sodium normal multiple risk factors: lung cancer COPD pain pain medications (narcotics) thyroid disease (TSH/T4/T3 results noted) BPH fluid overload Echo results noted unclear if sodium level of 116 was real given rapid improvement with 3% saline started on salt tablets continue PRN IV diuresis (following salt tablet administration) follow trend of repeat sodium levels (2) Acute and chronic respiratory failure with hypoxia: Code(s): J96.21 - Acute and chronic respiratory failure with hypoxia Status: Acute Assessment and Plan: presumably secondary to large right pleural effusion as noted by admission imaging cannot discount pneumonia, COPD, and underlying lung malignancy playing a role continue supplemental oxygen ongoing bronchodilator therapy PRN IV diuresis (3) Hydropneumothorax: Code(s): J94.8 - Other specified pleural conditions Status: Acute Assessment and Plan: known and recurrent history of this issue the was some discussion about PleurX catheter placement on last office visit with Pulmonary however, this was delayed due to recent right femoral fracture + hospitalization presumed etiology of #2 s/p right thoracentesis (on 11/22) with ~ 1000cc fluid removed admission CTA of chest noted: no pulmonary embolism large right hydropneumothorax with decrease in size of the gas component since the prior study associated near complete collapse of the right lung with 3 x 2 cm region of decreased enhancement within the collapsed portion of the right lung suspicious for pneumonia or malignancy small left pleural effusion with perihilar predominant ground glass and septal line thickening in the left lung which could represent pulmonary edema or pneumonia. previous pleural fluid analysis (at [facility]) was positive for adenocarcinoma of the lung CXR today (11/24) still with complete whiteout of right lung (despite diuresis and thoracentesis x 2) (4) Adenocarcinoma of right lung: Code(s): C34.91 - Malignant neoplasm of unspecified part of right bronchus or lung Status: Acute Assessment and Plan: follows with Dr. Carr for management of right lung adenocarcinoma s/p chemotherapy (has been receiving since 2022) complicated by recurrent right malignant pleural effusions requiring thoracentesis noted discussion about possible PleurX catheter placement (5) Chronic obstructive pulmonary disease: Code(s): J44.9 - Chronic obstructive pulmonary disease, unspecified Status: Acute Assessment and Plan: known diagnosis on bronchodilator therapy and Trelegy continue oxygen support (6) Anemia: Code(s): D64.9 - Anemia, unspecified Status: Acute Assessment and Plan: suspect related to known malignancy and caute illness anticoagulation on hold follow trend of H/H (7) Benign prostatic hyperplasia: Code(s): N40.0 - Benign prostatic hyperplasia without lower urinary tract symptoms Status: Chronic Assessment and Plan: continue Flomax therapy Case discussed with Dr. Luis Will continue to follow. Subjective Date/time seen: 11/25/23 10:32 Interval history: Follow-up for acute on chronic hyponatremia. Sodium dropped to 116mol/L so was give 3% saline with repeat sodium up to 124mmol/L; good diuresis yesterday with IV lasix and tolerated repeat thoracentesis yesterday without any issue or problems; remains on high flow oxygen therapy; breathing stable if not a bit better at the time of my visit. Exam Narrative: General: elderly and frail male in NAD Heart: tachycardic at times; no
--- NOTE | 2023-11-25 10:32 | P.PNNP_ITS ---
Progress Note: A&P Assessment and Plan (1) Hyponatremia: Code(s): E87.1 - Hypo-osmolality and hyponatremia Status: Acute Assessment and Plan: * mild improvement * relatively acute * 132 - 135mmols/L in the last month (Nov 2023) * prior to this November 2023, sodium normal * multiple risk factors: * lung cancer * COPD * pain * pain medications (narcotics) * thyroid disease (TSH/T4/T3 results noted) * BPH * fluid overload * Echo results noted * unclear if sodium level of 116 was real given rapid improvement with 3% saline * started on salt tablets * continue PRN IV diuresis (following salt tablet administration) * follow trend of repeat sodium levels (2) Acute and chronic respiratory failure with hypoxia: Code(s): J96.21 - Acute and chronic respiratory failure with hypoxia Status: Acute Assessment and Plan: * presumably secondary to large right pleural effusion as noted by admission imaging * cannot discount pneumonia, COPD, and underlying lung malignancy playing a role * continue supplemental oxygen * ongoing bronchodilator therapy * PRN IV diuresis (3) Hydropneumothorax: Code(s): J94.8 - Other specified pleural conditions Status: Acute Assessment and Plan: * known and recurrent history of this issue * the was some discussion about PleurX catheter placement on last office visit with Pulmonary * however, this was delayed due to recent right femoral fracture + hospitalization * presumed etiology of #2 * s/p right thoracentesis (on 11/22) with ~ 1000cc fluid removed * admission CTA of chest noted: * no pulmonary embolism * large right hydropneumothorax with decrease in size of the gas component si nce the prior study * associated near complete collapse of the right lung with 3 x 2 cm region of decreased enhancement within the collapsed portion of the right lung suspicious for pneumonia or malignancy * small left pleural effusion with perihilar predominant ground glass and septal line thickening in the left lung which could represent pulmonary edema or pneumonia. * previous pleural fluid analysis (at [facility]) was positive for adenocarcinoma of the lung * CXR today (11/24) still with complete whiteout of right lung (despite diuresis and thoracentesis x 2) (4) Adenocarcinoma of right lung: Code(s): C34.91 - Malignant neoplasm of unspecified part of right bronchus or lung Status: Acute Assessment and Plan: * follows with Dr. Carr for management of right lung adenocarcinoma * s/p chemotherapy (has been receiving since 2022) * complicated by recurrent right malignant pleural effusions requiring thoracentesis * noted discussion about possible PleurX catheter placement (5) Chronic obstructive pulmonary disease: Code(s): J44.9 - Chronic obstructive pulmonary disease, unspecified Status: Acute Assessment and Plan: * known diagnosis * on bronchodilator therapy and Trelegy * continue oxygen support (6) Anemia: Code(s): D64.9 - Anemia, unspecified Status: Acute Assessment and Plan: * suspect related to known malignancy and caute illness * anticoagulation on hold * follow trend of H/H (7) Benign prostatic hyperplasia: Code(s): N40.0 - Benign prostatic hyperplasia without lower urinary tract symptoms Status: Chronic Assessment and Plan: * continue Flomax therapy Case discussed with Dr. Luis Will continue to follow.
--- NOTE | 2023-11-25 11:34 | PCNFU ---
Nutrition Follow-Up Complete: Inadequate oral intake related to NPO status as evidenced by NPO, report of recent loss of appetite Goal: Diet advancement Intakes <75% when diet is advanced Patient has limited progress towards goal. We will continue current goal. Pt current nutrition is Regular. Nutrition recommendation: Ensure Enlive TID. Last recorded weight is 69 kg Bowel Motility: Last reported BM 11/23 Labs Reviewed: K 3.3,Na 122, Alb 3.2 Meds Noted:Cefepime, Vit D, Zithromax. Skin: WNL Additional Notes: Patient diet order has been advanced to a regular diet. Thoracentesis performed again 11/23 removing another 1000 ml. Diet supplements add of Ensure Enlive TID per MD orders. Appetite remains poor. Agree with diet orders. Monitoring intakes, weights, labs, diet order, plan of care Follow up in 3 days
--- NOTE | 2023-11-25 11:35 | PM.CNPUL ---
Assessment and Plan Assessment and plan (1) Adenocarcinoma of right lung: Code(s): C34.91 - Malignant neoplasm of unspecified part of right bronchus or lung Status: Acute Assessment and Plan: Patient with metastatic right lung adenocarcinoma with and malignant right pleural effusion, right hydropneumothorax, hypoxemic respiratory failure, Complete whiteout of the right hemithorax with shift of the mediastinum to the right despite 1000 mL thoracentesis on 11/22 and 11/23. currently the patient is requiring high-flow nasal cannula at 65% FiO2 and 40 L. Patient awaiting transfer to [facility] since 11/20/2023. CT scan of the chest on 11/20/2023 shows a proximal right mainstem narrowing from extrinsic compression likely related to his cancer. Plan: I suspect the patient has narrowing of the right mainstem bronchi from extrinsic compression and or narrowing with a mucus plug. Patient is not do not resuscitate and do not intubate. Patient is too high risk to perform bronchoscopy at [facility]. Bronchoscopy would require intubation at this point and the patient is DNI. Agree with transfer to higher level of care facility. Agree with cefepime, azithromycin, levalbuterol nebs, ipratropium nebs, Mucomyst 200 q.6 and dornase 2.5 q.12 for the possibility of infection and or mucus plugging. Discussed with Dr. Luis, and the patient, and son at the bedside. Will sign off. Call with questions. History of Present Illness History of Present Illness Consult date: 11/25/23 Chief complaint: Respiratory difficuly, pleural effusion Narrative: 11/25/2023: This is a new pulmonary consult for bronchoscopy. 83-year-old with a history of CLL, metastatic adenocarcinoma of the right lung with malignant pleural effusions, COPD, hypothyroidism, hyponatremia, pathologic fracture of the right femur on 11/02/2023 status post rosalva arthroplasty on 11/09/2023. Chest x-ray on 11/06 shows near complete collapse of the right lung with no mediastinal shift. regarding his right lung cancer: admission note from rehabilitation on 11/17/23 states Interventions: Follows with Dr. Carr. Dx 2022 w/ RUL lung adenocarcinoma s/p chemoRT w/ carboplatin and paclitaxel (-11/2022), durvalumab (02/2023-04/2023), carboplatin + pemetrexed (05/2023-06/2023), and more recently has been treated with Abraxane (09/2023 - Last received C2 on 10/16). - 10/21 CT chest w/o showed moderate ? large R hydropneumoTHORAX, large R hilar mass with collapse of the RUL and ML around the mass. Ground-glass nodules and consolidation in the residual aerated RUL. - Oncology considering nab paclitaxel, no plans for inpatient therapy at this time On 11/16/2023 the patient was on 2 L nasal cannula rehab with saturations 98% 11/18/23 patient was on 2 L nasal cannula saturation 93% and the progress note says the patient was doing fine. 11/20/23 the patient presented to the emergency room with shortness of breath and chest pain on the right. From the emergency department he was accepted to the ICU at [facility] where he receives his care. CT showed a large right hydropneumothorax with decrease in size of the gas and near complete collapse of the right lung. ABG was 7.43/40/105 on 10 L non-rebreather mask. 11/21/2023 patient started on ceftriaxone and azithromycin. 11/23/23 the patient required high-flow nasal cannula and underwent a right thoracentesis with 1000 mL removed. PH 7.34, pleural nucleated cells 303 with a differential neutrophils 4%, lymphocytes 32%, macrophages 44%, mesothelial cells 4%, other 16%. G stain shows rare white blood cells and no organisms. Fungal stain negative. Cytology shows malignancy of unknown primary. ABG on high-flow nasal cannula 40 L 65% FiO2 with pH of 7.44/46/61. 11/24/23 the patient had a right thoracentesis with 1000 mL removed. Patient started on nebulized Pulmozyme and Mucomyst. 11/25/23: Song
[2023-11-25 14:33] LABS: Anion Gap 6 mmol/L (4-12); Blood Urea Nitrogen 17 mg/dL (9-20); Calcium 8.1 mg/dL (8.4-10.2); Carbon Dioxide 31 mmol/L (22-30); Chloride 89 mmol/L (98-107); Estimated CRCL calculation 62 ml/min; Estimated Glomerular Filt Rate > 60; Glucose 146 mg/dL (65-110); Potassium 3.8 mmol/L (3.4-5.0); Sodium 126 mmol/L (137-145)
--- NOTE | 2023-11-25 17:22 | PM.IMPN ---
Progress Note: A&P Assessment and Plan (1) Acute and chronic respiratory failure with hypoxia: Code(s): J96.21 - Acute and chronic respiratory failure with hypoxia Status: Acute Assessment and Plan: Acute on chronic respiratory failure likely related to large right pleural effusion, could be related to pneumonia, COPD exacerbation, underlying lung malignancy -continue high-flow therapy at this time, maintain O2 sats > 92% Patient will require thoracentesis today, will discuss with IR (patient did receive Eliquis on 11/21 ER prior to transfer to the ICU -continue bronchodilators -CTA chest showed large right hydropneumothorax with decrease in side if the gas component since the prior study with small left pleural effusion with ministerio perihilar predominant groundglass and septal line thickening in the left lung which could represent pulmonary edema or pneumonia s/p thoracentesis x2 awaiting transfer to [facility] (2) Hydropneumothorax: Code(s): J94.8 - Other specified pleural conditions Status: Acute Assessment and Plan: Patient has had multiple episodes of pleural effusion requiring thoracentesis, he was recommended to have a pleural VAC as an outpatient at [facility]. -Patient has been accepted to the ICU at [facility] by Dr. Langley, awaiting bed. Patient gets all his care at [facility] and is being transferred for similar reason. s/p thoracentesis x2 with removal 1000cc of fluids each time awaiting transfer to [facility] (3) Hyponatremia: Code(s): E87.1 - Hypo-osmolality and hyponatremia Status: Acute Assessment and Plan: Multifactorial -sodium dropped to 116 on 11/23, patient was given 3% saline -appreciate nephrology following the patient -continue sodium chloride 1 g b.i.d. -na this morning 126 Nephrology following (4) Adenocarcinoma of right lung: Code(s): C34.91 - Malignant neoplasm of unspecified part of right bronchus or lung Status: Acute Assessment and Plan: Follows up with Dr. Carr for right lung adenocarcinoma s/p chemoRT w/ carboplatin and paclitaxel (-11/2022), durvalumab (02/2023-04/2023), carboplatin + pemetrexed (05/2023-06/2023), and more recently has been treated with Abraxane (09/2023 - Last received C2 on 10/16 Patient has history of malignant pleural effusions, last thoracentesis was on 10/23/2023 -there has been some talks about PleurX catheter (5) Chronic obstructive pulmonary disease: Code(s): J44.9 - Chronic obstructive pulmonary disease, unspecified Status: Acute Assessment and Plan: History of COPD, continue bronchodilators and home Trelegy -continue oxygen support (6) Hypothyroidism: Code(s): E03.9 - Hypothyroidism, unspecified Status: Acute Assessment and Plan: Continue levothyroxine (7) Benign prostatic hyperplasia: Code(s): N40.0 - Benign prostatic hyperplasia without lower urinary tract symptoms Status: Chronic Assessment and Plan: Continue Flomax Plan DVT prophylaxis: Continue SCDs, Holding Eliquis for thoracentesis Stress ulcer prophylaxis: Not indicated Nutrition: Code Status: Full code Subjective Date/time seen: 11/25/23 17:22 Interval history: Patient noted some improvement today Review of Systems Review of Systems: 12 systems were reviewed and are negative except for as per HPI. All systems reviewed & are unremarkable except as noted in HPI and below Exam Narrative: General: Pleasant gentleman in no acute distress HEENT:? Pupils equal and reactive, sclera is clear, moist oral mucosa Neck:? Supple Respiratory:? Decreased air entry on right side, coarse breath sounds on left no wheezing noted Cardiac:? S1-S2 was normal, regular rate and rhythm Abdomen:? Soft, nontender, nondistended, normoactive bowel sounds Extremities: No edema, extremities are warm, palpable pedal pulses Neuro:? Patient is awake, alert, nonfocal, follows simple commands and answers to
[2023-11-25 18:09] LABS: Mycoplasma IgM Antibody Titer 69 U/mL
[2023-11-25] MEDS: ACETAMINOPHEN 325 MG TABLET 650 MG PO (20:49)
[2023-11-26] VITALS (30 sets, daily range): BP systolic 99–145; BP diastolic 41–75; PULSE 89–122; RESP 16–29; TEMP 36.4–36.6; O2SAT 90–99
[2023-11-26] MEDS: ACETYLCYSTEINE 20% INHAL SOLN 800 MG/4 ML VIAL 200 MG INHALATION ×4 (02:09→20:27)
[2023-11-26] MEDS: LEVALBUTEROL NEB 1.25 MG/3 ML INHALATION ×4 (02:10→20:27)
[2023-11-26] MEDS: IPRATROPIUM BR 0.02% INH SOLN 0.5 MG/2.5 ML VIAL INHALATION ×4 (02:10→20:27)
[2023-11-26 04:21] LABS: Hemoglobin 8.6 g/dL (14.0-18.0); Mean Corpuscular HGB Conc 31.9 g/dl (32-36); Mean Corpuscular Hemoglobin 33.9 pg (26-34); Mean Corpuscular Volume 106.3 fl (80-100); Mean Platelet Volume 8.7 fl (7.4-10.4); Platelet Count Result 239 k/mm3 (150-375); Red Blood Count 2.54 M/mm3 (4.6-6.20); Red Cell Distribution Width 19.5 % (11.5-14.5); White Blood Count 9.1 K/mm3 (4.5-10.0)
[2023-11-26 04:35] LABS: Alanine Aminotransferase 19 U/L (6-50); Alkaline Phosphatase 102 U/L (38-126); Anion Gap 6 mmol/L (4-12); Aspartate Amino Transferase 26 U/L (17-59); Bilirubin,Total 0.6 mg/dL (0.2-1.3); Blood Urea Nitrogen 20 mg/dL (9-20); Calcium 8.2 mg/dL (8.4-10.2); Carbon Dioxide 28 mmol/L (22-30); Chloride 91 mmol/L (98-107); Estimated CRCL calculation 62 ml/min; Estimated Glomerular Filt Rate > 60; Glucose 120 mg/dL (65-110); Phosphorus 2.6 mg/dL (2.5-4.5); Potassium 4.3 mmol/L (3.4-5.0); Sodium 125 mmol/L (137-145)
[2023-11-26 04:44] LABS: Anisocytosis 1+; Basophils Absolute Manual 0.09 K/mm3 (0.0-0.1); Basophils Percent Manual 1 % (0-1); Lymphocytes Absolute Manual 0.72 K/mm3 (1.1-4.5); Monocytes Absolute Manual 0.45 K/mm3 (0.1-0.90); Monocytes Percent Manual 5 % (3-9); Myelocytes Percent 1 %; Neutrophils Percent Manual 85 % (46-73); Platelet Estimate Adequate (Adequate); Schistocytes None Seen; Smudge Cells PRESENT; Total Cells Counted 100
[2023-11-26] MEDS: CEFEPIME 2 GM/NS 50 ML 2 GM/50 ML BAG IVPB ×3 (06:10→21:01)
[2023-11-26] MEDS: DORNASE ALFA INH SOLN 1 MG/ML 2.5 ML AMP 2.5 MG INHALATION ×2 (08:11→20:31)
[2023-11-26] MEDS: FLUTICASONE/UMECLIDIN/VILANTER 200-62.5-25 MCG ELLIPTA 1 PUFF INHALATION (08:16)
--- NOTE | 2023-11-26 09:06 | WPDINTPN ---
Progress Note: A&P Assessment and Plan (1) Acute and chronic respiratory failure with hypoxia: Code(s): J96.21 - Acute and chronic respiratory failure with hypoxia Status: Acute Assessment and Plan: Acute on chronic respiratory failure likely related to large right pleural effusion, could be related to pneumonia, COPD exacerbation, underlying lung malignancy -continue high-flow therapy at this time, maintain O2 sats > 92% -could be related to pleural effusion, mucus plugging, bronchial obstruction from malignancy -continue bronchodilators -continue Pulmozyme, Mucomyst nebs -chest physiotherapy -place the good lung down for better ventilation and perfusion -chest x-ray this morning: Stable whiteout of the right hemithorax with cut off of the right mainstem bronchus. Findings are consistent with large effusion and associated complete right lung atelectasis.Stable extensive pulmonary edema pattern versus pneumonia in the left lung 11/20/2023: CTA chest IMPRESSION: 1. No pulmonary embolism. 2. large right hydropneumothorax with decrease in size of the gas component since the prior study. 3. Associated near complete collapse of the right lung with 3 x 2 cm region of decreased enhancement within the collapsed portion of the right lung suspicious for pneumonia or malignancy. 4. Small left pleural effusion with perihilar predominant groundglass and septal line thickening in the left lung which could represent pulmonary edema or pneumonia. 5. Cholelithiasis (2) Hydropneumothorax: Code(s): J94.8 - Other specified pleural conditions Status: Acute Assessment and Plan: Patient has had multiple episodes of pleural effusion requiring thoracentesis, he was recommended to have a pleural VAC as an outpatient at [facility]. -Patient has been accepted to the ICU at [facility] by Dr. Langley, awaiting bed. Patient gets all his care at [facility] and is being transferred for similar reason. 11/22: Right-sided Thoracentesis with removal of 1000 mL of serosanguineous fluid 11/23: Repeat right-sided thoracentesis with removal of 1000 mL of serosanguineous fluid (3) Hyponatremia: Code(s): E87.1 - Hypo-osmolality and hyponatremia Status: Acute Assessment and Plan: Multifactorial -sodium dropped to 116 on 11/23, patient was given 3% saline -appreciate nephrology following the patient -continue sodium chloride 1 g b.i.d. -sodium level this morning is 125 -Continue to monitor (4) Adenocarcinoma of right lung: Code(s): C34.91 - Malignant neoplasm of unspecified part of right bronchus or lung Status: Acute Assessment and Plan: Follows up with Dr. Carr for right lung adenocarcinoma s/p chemoRT w/ carboplatin and paclitaxel (-11/2022), durvalumab (02/2023-04/2023), carboplatin + pemetrexed (05/2023-06/2023), and more recently has been treated with Abraxane (09/2023 - Last received C2 on 10/16 Patient has history of malignant pleural effusions, last thoracentesis was on 10/23/2023 -there has been some talks about PleurX catheter (5) Chronic obstructive pulmonary disease: Code(s): J44.9 - Chronic obstructive pulmonary disease, unspecified Status: Acute Assessment and Plan: History of COPD, continue bronchodilators and home Trelegy -continue oxygen support (6) Hypothyroidism: Code(s): E03.9 - Hypothyroidism, unspecified Status: Acute Assessment and Plan: Continue levothyroxine (7) Benign prostatic hyperplasia: Code(s): N40.0 - Benign prostatic hyperplasia without lower urinary tract symptoms Status: Chronic Assessment and Plan: Continue Flomax Plan DVT prophylaxis: Continue SCDs, continue to hold Eliquis Stress ulcer prophylaxis: Not indicated Nutrition: NPO for now Code Status: Full code Critical Care Time Spent: 33 minutes 11/25: Discussed with patient's Erin, updated with patient's condition and plan of care. She is aware th
[2023-11-26] MEDS: FUROSEMIDE INJ 40 MG/4 ML VIAL IV PUSH (09:12)
[2023-11-26] MEDS: TAMSULOSIN HCL 0.4 MG CAPSULE PO (09:25)
[2023-11-26] MEDS: SODIUM CHLORIDE 1 GM TABLET PO ×2 (09:26→16:52)
[2023-11-26] MEDS: CHOLECALCIFEROL 1,000 UNITS TABLET 2000 UNITS PO (09:26)
[2023-11-26] MEDS: LIDOCAINE 5% PATCH 4 PATCH TOPICAL (09:26)
[2023-11-26] MEDS: LEVOTHYROXINE SODIUM 100 MCG TABLET PO (09:26)
[2023-11-26] MEDS: traMADol HCL (*CRX) 25 MG TABLET PO (10:38)
[2023-11-26] MEDS: ENOXAPARIN 80 MG/0.8 ML SYRINGE 70 MG SUB-Q ×2 (10:58→21:01)
--- NOTE | 2023-11-26 12:15 | PM.IMPN ---
Progress Note: A&P Assessment and Plan (1) Acute and chronic respiratory failure with hypoxia: Code(s): J96.21 - Acute and chronic respiratory failure with hypoxia Status: Acute Assessment and Plan: Acute on chronic respiratory failure likely related to large right pleural effusion, could be related to pneumonia, COPD exacerbation, underlying lung malignancy -continue high-flow therapy at this time, maintain O2 sats > 92% Patient will require thoracentesis today, will discuss with IR (patient did receive Eliquis on 11/21 ER prior to transfer to the ICU -continue bronchodilators -CTA chest showed large right hydropneumothorax with decrease in side if the gas component since the prior study with small left pleural effusion with ministerio perihilar predominant groundglass and septal line thickening in the left lung which could represent pulmonary edema or pneumonia s/p thoracentesis x2 awaiting transfer to [facility] (2) Hydropneumothorax: Code(s): J94.8 - Other specified pleural conditions Status: Acute Assessment and Plan: Patient has had multiple episodes of pleural effusion requiring thoracentesis, he was recommended to have a pleural VAC as an outpatient at [facility]. -Patient has been accepted to the ICU at [facility] by Dr. Langley, awaiting bed. Patient gets all his care at [facility] and is being transferred for similar reason. s/p thoracentesis x2 with removal 1000cc of fluids each time awaiting transfer to [facility] (3) Hyponatremia: Code(s): E87.1 - Hypo-osmolality and hyponatremia Status: Acute Assessment and Plan: Multifactorial -sodium dropped to 116 on 11/23, patient was given 3% saline -appreciate nephrology following the patient -continue sodium chloride 1 g b.i.d. -na this morning 125 Nephrology following (4) Adenocarcinoma of right lung: Code(s): C34.91 - Malignant neoplasm of unspecified part of right bronchus or lung Status: Acute Assessment and Plan: Follows up with Dr. Carr for right lung adenocarcinoma s/p chemoRT w/ carboplatin and paclitaxel (-11/2022), durvalumab (02/2023-04/2023), carboplatin + pemetrexed (05/2023-06/2023), and more recently has been treated with Abraxane (09/2023 - Last received C2 on 10/16 Patient has history of malignant pleural effusions now with recurrent pleural effusion with thoracentesis awaiting transfer to [facility] for higher level ot care and where patient's care is domiciled (5) Chronic obstructive pulmonary disease: Code(s): J44.9 - Chronic obstructive pulmonary disease, unspecified Status: Acute Assessment and Plan: History of COPD, continue bronchodilators and home Trelegy -continue oxygen support (6) Hypothyroidism: Code(s): E03.9 - Hypothyroidism, unspecified Status: Acute Assessment and Plan: Continue levothyroxine (7) Benign prostatic hyperplasia: Code(s): N40.0 - Benign prostatic hyperplasia without lower urinary tract symptoms Status: Chronic Assessment and Plan: Continue Flomax Plan DVT prophylaxis: on full dose Lovenox Stress ulcer prophylaxis: Not indicated Code Status: Full code Subjective Date/time seen: 11/26/23 12:15 Interval history: Patient comfortable at bedside awaiting transfer to [facility] Review of Systems Review of Systems: 12 systems were reviewed and are negative except for as per HPI. All systems reviewed & are unremarkable except as noted in HPI and below Exam Narrative: General: Pleasant gentleman in no acute distress HEENT:? Pupils equal and reactive, sclera is clear, moist oral mucosa Neck:? Supple Respiratory:? Decreased air entry on right side, coarse breath sounds on left no wheezing noted Cardiac:? S1-S2 was normal, regular rate and rhythm Abdomen:? Soft, nontender, nondistended, normoactive bowel sounds Extremities: No edema, extremities are warm, palpable pedal pulses Neuro:? Patient is awake, alert, nonfocal, fo
--- NOTE | 2023-11-26 13:14 | P.PNNP_ITS ---
Progress Note: A&P Assessment and Plan (1) Hyponatremia: Code(s): E87.1 - Hypo-osmolality and hyponatremia Status: Acute Assessment and Plan: * hyponatremia. * Acute on chronic * 132 - 135mmols/L in the last month (Nov 2023) * in November of 2019 the sodium ranged from 135-137, 3 out of the 4 times it was low. * cortisol level is okay. TSH is a little high. will check an SPEP * he has metastatic cancer and chronic pleural effusion likely causing the hyponatremia. also narcotics can play a role. * multiple risk factors: * lung cancer * COPD * pain * pain medications (narcotics) * thyroid disease (TSH/T4/T3 results noted) * BPH * fluid overload * Echo results noted * unclear if sodium level of 116 was real given rapid improvement with 3% saline. whether real or not, the sodium did went from 124-116 back to 124 in just a few hours and so would not be involved in decision as to whether he was over correcting. It seems besides that sodium of 116 his numbers have been relatively stable in the mid 120s. * Currently he is on sodium chloride tablets. * Between oral intake and IV intake he is getting about 2L per day. * There is not much we can do about the IV intake however this volume is decre asing. * Will fluid restrict. * Will add a small dose of furosemide to help reduce the urine osmolality to increase free water clearance. * Will check another sodium level in the morning (2) Acute and chronic respiratory failure with hypoxia: Code(s): J96.21 - Acute and chronic respiratory failure with hypoxia Status: Acute Assessment and Plan: * presumably secondary to large right pleural effusion as noted by admission imaging * cannot discount pneumonia, COPD, and underlying lung malignancy playing a role * continue supplemental oxygen * ongoing bronchodilator therapy * PRN IV diuresis . Start p.o. diuretics for this sodium. (3) Hydropneumothorax: Code(s): J94.8 - Other specified pleural conditions Status: Acute Assessment and Plan: * known and recurrent history of this issue * the was some discussion about PleurX catheter placement on last office visit with Pulmonary * however, this was delayed due to recent right femoral fracture + hospitalization * presumed etiology of #2 * s/p right thoracentesis (on 11/22) with ~ 1000cc fluid removed * admission CTA of chest noted: * no pulmonary embolism * large right hydropneumothorax with decrease in size of the gas component since the prior study * associated near complete collapse of the right lung with 3 x 2 cm region of decreased enhancement within the collapsed portion of the right lung suspicious for pneumonia or malignancy * small left pleural effusion with perihilar predominant ground glass and septal line thickening in the left lung which could represent pulmonary edema or pneumonia. * previous pleural fluid analysis (at [facility]) was positive for adenocarcinoma of the lung * CXR today (11/24) still with complete whiteout of right lung (despite diuresis and thoracentesis x 2) (4) Adenocarcinoma of right lung: Code(s): C34.91 - Malignant neoplasm of unspecified part of right bronchus or lung Status: Acute Assessment and Plan: * follows with Dr. Carr for management of right lung adenocarcinoma * s/p chemotherapy (has been receiving since 2022) * complicated by recurrent right malignant pleural effusions requiring thoracentesis * noted discussion about possible PleurX catheter placement
--- NOTE | 2023-11-26 13:14 | PM.PNNEP ---
Progress Note: A&P Assessment and Plan (1) Hyponatremia: Code(s): E87.1 - Hypo-osmolality and hyponatremia Status: Acute Assessment and Plan: hyponatremia. Acute on chronic 132 - 135mmols/L in the last month (Nov 2023) in November of 2019 the sodium ranged from 135-137, 3 out of the 4 times it was low. cortisol level is okay. TSH is a little high. will check an SPEP he has metastatic cancer and chronic pleural effusion likely causing the hyponatremia. also narcotics can play a role. multiple risk factors: lung cancer COPD pain pain medications (narcotics) thyroid disease (TSH/T4/T3 results noted) BPH fluid overload Echo results noted unclear if sodium level of 116 was real given rapid improvement with 3% saline. whether real or not, the sodium did went from 124-116 back to 124 in just a few hours and so would not be involved in decision as to whether he was over correcting. It seems besides that sodium of 116 his numbers have been relatively stable in the mid 120s. Currently he is on sodium chloride tablets. Between oral intake and IV intake he is getting about 2L per day. There is not much we can do about the IV intake however this volume is decreasing. Will fluid restrict. Will add a small dose of furosemide to help reduce the urine osmolality to increase free water clearance. Will check another sodium level in the morning (2) Acute and chronic respiratory failure with hypoxia: Code(s): J96.21 - Acute and chronic respiratory failure with hypoxia Status: Acute Assessment and Plan: presumably secondary to large right pleural effusion as noted by admission imaging cannot discount pneumonia, COPD, and underlying lung malignancy playing a role continue supplemental oxygen ongoing bronchodilator therapy PRN IV diuresis . Start p.o. diuretics for this sodium. (3) Hydropneumothorax: Code(s): J94.8 - Other specified pleural conditions Status: Acute Assessment and Plan: known and recurrent history of this issue the was some discussion about PleurX catheter placement on last office visit with Pulmonary however, this was delayed due to recent right femoral fracture + hospitalization presumed etiology of #2 s/p right thoracentesis (on 11/22) with ~ 1000cc fluid removed admission CTA of chest noted: no pulmonary embolism large right hydropneumothorax with decrease in size of the gas component since the prior study associated near complete collapse of the right lung with 3 x 2 cm region of decreased enhancement within the collapsed portion of the right lung suspicious for pneumonia or malignancy small left pleural effusion with perihilar predominant ground glass and septal line thickening in the left lung which could represent pulmonary edema or pneumonia. previous pleural fluid analysis (at [facility]) was positive for adenocarcinoma of the lung CXR today (11/24) still with complete whiteout of right lung (despite diuresis and thoracentesis x 2) (4) Adenocarcinoma of right lung: Code(s): C34.91 - Malignant neoplasm of unspecified part of right bronchus or lung Status: Acute Assessment and Plan: follows with Dr. 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
[2023-11-26] MEDS: FUROSEMIDE 20 MG TABLET PO (16:52)
[2023-11-26] MEDS: ACETAMINOPHEN 325 MG TABLET 650 MG PO (21:02)
[2023-11-26 21:14] LABS: Pneumococcal Antigen Urine NOT DETECTED
[2023-11-26 22:21] LABS: Anion Gap 5 mmol/L (4-12); Blood Urea Nitrogen 27 mg/dL (9-20); Carbon Dioxide 31 mmol/L (22-30); Chloride 88 mmol/L (98-107); Estimated CRCL calculation 56 ml/min; Estimated Glomerular Filt Rate > 60; Glucose 146 mg/dL (65-110); Magnesium 1.9 mg/dL (1.6-2.3); Potassium 3.9 mmol/L (3.4-5.0); Sodium 124 mmol/L (137-145)
[2023-11-27] VITALS (29 sets, daily range): BP systolic 102–144; BP diastolic 49–75; PULSE 92–114; RESP 16–33; TEMP 36.4–36.7; O2SAT 88–97
[2023-11-27 01:43] LABS: Legionella pneumophila Ag Ur NOT DETECTED
[2023-11-27] MEDS: ACETYLCYSTEINE 20% INHAL SOLN 800 MG/4 ML VIAL 200 MG INHALATION ×4 (02:20→20:01)
[2023-11-27] MEDS: IPRATROPIUM BR 0.02% INH SOLN 0.5 MG/2.5 ML VIAL INHALATION ×4 (02:21→20:01)
[2023-11-27] MEDS: LEVALBUTEROL NEB 1.25 MG/3 ML INHALATION ×4 (02:21→20:01)
[2023-11-27 04:12] LABS: Anion Gap 4 mmol/L (4-12); Blood Urea Nitrogen 28 mg/dL (9-20); Calcium 8.3 mg/dL (8.4-10.2); Carbon Dioxide 33 mmol/L (22-30); Chloride 88 mmol/L (98-107); Estimated CRCL calculation 62 ml/min; Estimated Glomerular Filt Rate > 60; Glucose 113 mg/dL (65-110); Phosphorus 3.1 mg/dL (2.5-4.5); Sodium 125 mmol/L (137-145)
[2023-11-27 05:00] LABS: Hematocrit 27.3 % (42.0-52.0); Hemoglobin 8.6 g/dL (14.0-18.0); Mean Corpuscular HGB Conc 31.5 g/dl (32-36); Mean Corpuscular Hemoglobin 33.9 pg (26-34); Mean Corpuscular Volume 107.5 fl (80-100); Mean Platelet Volume 9.1 fl (7.4-10.4); Platelet Count Result 239 k/mm3 (150-375); Red Blood Count 2.54 M/mm3 (4.6-6.20); White Blood Count 8.9 K/mm3 (4.5-10.0)
[2023-11-27] MEDS: CEFEPIME 2 GM/NS 50 ML 2 GM/50 ML BAG IVPB ×3 (05:33→21:09)
[2023-11-27] MEDS: LEVOTHYROXINE SODIUM 100 MCG TABLET PO (05:33)
[2023-11-27] MEDS: DORNASE ALFA INH SOLN 1 MG/ML 2.5 ML AMP 2.5 MG INHALATION ×2 (08:13→20:02)
--- NOTE | 2023-11-27 08:14 | WPDINTPN ---
Progress Note: A&P Assessment and Plan (1) Acute and chronic respiratory failure with hypoxia: Code(s): J96.21 - Acute and chronic respiratory failure with hypoxia Status: Acute Assessment and Plan: Acute on chronic respiratory failure likely related to large right pleural effusion, could be related to pneumonia, COPD exacerbation, underlying lung malignancy -continue high-flow therapy at this time, maintain O2 sats > 92% -could be related to pleural effusion, mucus plugging, bronchial obstruction from malignancy -continue bronchodilators -continue Mucomyst nebs -status post Pulmozyme for 3 days -continue chest physiotherapy -place the good lung down for better ventilation and perfusion -chest x-ray this morning: Stable whiteout of the right hemithorax with cut off of the right mainstem bronchus. Findings are consistent with large effusion and associated complete right lung atelectasis.Stable extensive pulmonary edema pattern versus pneumonia in the left lung Patient is a mouth breather, will place a face mask when patient is asleep during the day or night 11/20/2023: CTA chest IMPRESSION: 1. No pulmonary embolism. 2. large right hydropneumothorax with decrease in size of the gas component since the prior study. 3. Associated near complete collapse of the right lung with 3 x 2 cm region of decreased enhancement within the collapsed portion of the right lung suspicious for pneumonia or malignancy. 4. Small left pleural effusion with perihilar predominant groundglass and septal line thickening in the left lung which could represent pulmonary edema or pneumonia. 5. Cholelithiasis (2) Hydropneumothorax: Code(s): J94.8 - Other specified pleural conditions Status: Acute Assessment and Plan: Patient has had multiple episodes of pleural effusion requiring thoracentesis, he was recommended to have a pleural VAC as an outpatient at [facility]. -Patient has been accepted to the ICU at [facility] by Dr. Langley, awaiting bed. Patient gets all his care at [facility] and is being transferred for similar reason. 11/22: Right-sided Thoracentesis with removal of 1000 mL of serosanguineous fluid 11/23: Repeat right-sided thoracentesis with removal of 1000 mL of serosanguineous fluid (3) Hyponatremia: Code(s): E87.1 - Hypo-osmolality and hyponatremia Status: Acute Assessment and Plan: Multifactorial -sodium dropped to 116 on 11/23, patient was given 3% saline -appreciate nephrology following the patient -sodium level this morning is 124 -will increase sodium tablets to 1 g t.i.d. with meals, discussed with Nephrology and are agreeable -Continue to monitor (4) Adenocarcinoma of right lung: Code(s): C34.91 - Malignant neoplasm of unspecified part of right bronchus or lung Status: Acute Assessment and Plan: Follows up with Dr. Carr for right lung adenocarcinoma s/p chemoRT w/ carboplatin and paclitaxel (-11/2022), durvalumab (02/2023-04/2023), carboplatin + pemetrexed (05/2023-06/2023), and more recently has been treated with Abraxane (09/2023 - Last received C2 on 10/16 Patient has history of malignant pleural effusions, last thoracentesis was on 10/23/2023 -there has been some talks about PleurX catheter (5) Chronic obstructive pulmonary disease: Code(s): J44.9 - Chronic obstructive pulmonary disease, unspecified Status: Acute Assessment and Plan: History of COPD, continue bronchodilators and home Trelegy -continue oxygen support (6) Hypothyroidism: Code(s): E03.9 - Hypothyroidism, unspecified Status: Acute Assessment and Plan: Continue levothyroxine (7) Benign prostatic hyperplasia: Code(s): N40.0 - Benign prostatic hyperplasia without lower urinary tract symptoms Status: Chronic Assessment and Plan: Continue Flomax Plan DVT prophylaxis: Continue SCDs, continue to hold Eliquis, patient started on therapeutic Lovenox in case he requ
[2023-11-27] MEDS: FLUTICASONE/UMECLIDIN/VILANTER 200-62.5-25 MCG ELLIPTA 1 PUFF INHALATION (08:20)
[2023-11-27] MEDS: ENOXAPARIN 80 MG/0.8 ML SYRINGE 70 MG SUB-Q ×2 (09:21→21:00)
[2023-11-27] MEDS: TAMSULOSIN HCL 0.4 MG CAPSULE PO (09:21)
[2023-11-27] MEDS: SODIUM CHLORIDE 1 GM TABLET PO ×3 (09:21→16:33)
[2023-11-27] MEDS: CHOLECALCIFEROL 1,000 UNITS TABLET 2000 UNITS PO (09:21)
[2023-11-27] MEDS: FUROSEMIDE 20 MG TABLET PO (09:21)
--- NOTE | 2023-11-27 09:44 | P.PNNP_ITS ---
Progress Note: A&P Assessment and Plan (1) Hyponatremia: Code(s): E87.1 - Hypo-osmolality and hyponatremia Status: Acute Assessment and Plan: * hyponatremia. * Acute on chronic * 132 - 135mmols/L in the last month (Nov 2023) * in November of 2019 the sodium ranged from 135-137, 3 out of the 4 times it was low. * cortisol level is okay. TSH is a little high. will check an SPEP * he has metastatic cancer and chronic pleural effusion likely causing the hyponatremia. also narcotics can play a role. * multiple risk factors: * lung cancer * COPD * pain * pain medications (narcotics) * thyroid disease (TSH/T4/T3 results noted) * BPH * fluid overload * Echo results noted * unclear if sodium level of 116 was real given rapid improvement with 3% saline. whether real or not, the sodium did went from 124-116 back to 124 in just a few hours and so would not be involved in decision as to whether he was over correcting. It seems besides that sodium of 116 his numbers have been relatively stable in the mid 120s. * Currently he is on sodium chloride tablets and p.o. furosemide. The patient only had 420cc in yesterday orally so will not do a fluid restriction.. * We discussed adding demeclocycline but the patient has an allergy to doxycycline which was dizziness. I talked with him and the patient's at length about this allergy. He definitely had severe dizziness at the time he was taking the doxycycline. He has had dizzy spells before from other reasons however. They would prefer I hold off on the demeclocycline for now and use that if nothing else works. * I will increase this salt tablets and the Lasix to 3 times a day. * Will check another sodium level in the morning (2) Acute and chronic respiratory failure with hypoxia: Code(s): J96.21 - Acute and chronic respiratory failure with hypoxia Status: Acute Assessment and Plan: * presumably secondary to large right pleural effusion as noted by admission imaging * cannot discount pneumonia, COPD, and underlying lung malignancy playing a role * continue supplemental oxygen * ongoing bronchodilator therapy * PRN IV diuresis . Started p.o. diuretics for this sodium. (3) Hydropneumothorax: Code(s): J94.8 - Other specified pleural conditions Status: Acute Assessment and Plan: * known and recurrent history of this issue * the was some discussion about PleurX catheter placement on last office visit with Pulmonary * however, this was delayed due to recent right femoral fracture + hospitalization * presumed etiology of #2 * s/p right thoracentesis (on 11/22) with ~ 1000cc fluid removed * admission CTA of chest noted: * no pulmonary embolism * large right hydropneumothorax with decrease in size of the gas component since the prior study * associated near complete collapse of the right lung with 3 x 2 cm region of decreased enhancement within the collapsed portion of the right lung suspicious for pneumonia or malignancy * small left pleural effusion with perihilar predominant ground glass and septal line thickening in the left lung which could represent pulmonary edema or pneumonia. * previous pleural fluid analysis (at [facility]) was positive for adenocarcinoma of the lung * CXR 11/25 still with complete whiteout of right lung (despite diuresis and thoracentesis x 2) (4) Adenocarcinoma of right lung: Code(s): C34.91 - Malignant neoplasm of unspecified part of right bronchus or lung Status: Acute Assessment and Plan:
--- NOTE | 2023-11-27 09:44 | PM.PNNEP ---
Progress Note: A&P Assessment and Plan (1) Hyponatremia: Code(s): E87.1 - Hypo-osmolality and hyponatremia Status: Acute Assessment and Plan: hyponatremia. Acute on chronic 132 - 135mmols/L in the last month (Nov 2023) in November of 2019 the sodium ranged from 135-137, 3 out of the 4 times it was low. cortisol level is okay. TSH is a little high. will check an SPEP he has metastatic cancer and chronic pleural effusion likely causing the hyponatremia. also narcotics can play a role. multiple risk factors: lung cancer COPD pain pain medications (narcotics) thyroid disease (TSH/T4/T3 results noted) BPH fluid overload Echo results noted unclear if sodium level of 116 was real given rapid improvement with 3% saline. whether real or not, the sodium did went from 124-116 back to 124 in just a few hours and so would not be involved in decision as to whether he was over correcting. It seems besides that sodium of 116 his numbers have been relatively stable in the mid 120s. Currently he is on sodium chloride tablets and p.o. furosemide. The patient only had 420cc in yesterday orally so will not do a fluid restriction.. We discussed adding demeclocycline but the patient has an allergy to doxycycline which was dizziness. I talked with him and the patient's at length about this allergy. He definitely had severe dizziness at the time he was taking the doxycycline. He has had dizzy spells before from other reasons however. They would prefer I hold off on the demeclocycline for now and use that if nothing else works. I will increase this salt tablets and the Lasix to 3 times a day. Will check another sodium level in the morning (2) Acute and chronic respiratory failure with hypoxia: Code(s): J96.21 - Acute and chronic respiratory failure with hypoxia Status: Acute Assessment and Plan: presumably secondary to large right pleural effusion as noted by admission imaging cannot discount pneumonia, COPD, and underlying lung malignancy playing a role continue supplemental oxygen ongoing bronchodilator therapy PRN IV diuresis . Started p.o. diuretics for this sodium. (3) Hydropneumothorax: Code(s): J94.8 - Other specified pleural conditions Status: Acute Assessment and Plan: known and recurrent history of this issue the was some discussion about PleurX catheter placement on last office visit with Pulmonary however, this was delayed due to recent right femoral fracture + hospitalization presumed etiology of #2 s/p right thoracentesis (on 11/22) with ~ 1000cc fluid removed admission CTA of chest noted: no pulmonary embolism large right hydropneumothorax with decrease in size of the gas component since the prior study associated near complete collapse of the right lung with 3 x 2 cm region of decreased enhancement within the collapsed portion of the right lung suspicious for pneumonia or malignancy small left pleural effusion with perihilar predominant ground glass and septal line thickening in the left lung which could represent pulmonary edema or pneumonia. previous pleural fluid analysis (at [facility]) was positive for adenocarcinoma of the lung CXR 11/25 still with complete whiteout of right lung (despite diuresis and thoracentesis x 2) (4) Adenocarcinoma of right lung: Code(s): C34.91 - Malignant neoplasm of unspecified part of right bronchus or lung Status: Acute Assessment and Plan: follows with Dr. Carr for management of right lung adenocarcinoma s/p chemotherapy (has been receiving since 2022) complicated by recurrent right malignant pleural effusions requiring thoracentesis noted discussion about possible PleurX catheter placement (5) Chronic obstructive pulmonary disease: Code(s): J44.9 - Chronic obstructive pulmonary disease, unspecified Status: Acute Assessment and Plan: known d
[2023-11-27] MEDS: LIDOCAINE 5% PATCH 4 PATCH TOPICAL (10:55)
[2023-11-27 12:10] LABS: Alveolar/Arterial O2 Gradient 460.4 mmHg; Base Excess ABG 7.4 mEq/l (+/-2.0); Carboxyhemoglobin 1.1 % THb (0-2.0); Fractional Inspired Oxygen 80 %; HCO3 ABG 31.9 mEq/l (22.0-26.0); Methemoglobin ABG 0.2 %THb (0-1.5); Oxygen Content ABG 10.7 %vol (16.0-22.0); Oxygen Saturation ABG 92.8 % (95.0-100.0); Oxyhemoglobin 90.7 % THb (90.0-100.0); PCO2 ABG 45.7 mmHg (35.0-45.0); PO2 FiO2 Ratio Arterial Blood 0.77 %; Total Hemoglobin 8.3 g/dL (12.0-18.0); pH ABG 7.462 (7.350-7.450)
[2023-11-27 12:11] LABS: Modified Allen's Test Pass; Site Drawn LEFT RADIAL
[2023-11-27 12:12] LABS: Device HIGH FLOW THERAPY
[2023-11-27] MEDS: FUROSEMIDE INJ 100 MG/10 ML VIAL 60 MG IV PUSH (12:23)
--- NOTE | 2023-11-27 16:34 | PM.IMPN ---
Progress Note: A&P Assessment and Plan (1) Acute and chronic respiratory failure with hypoxia: Code(s): J96.21 - Acute and chronic respiratory failure with hypoxia Status: Acute Assessment and Plan: Acute on chronic respiratory failure likely related to large right pleural effusion, could be related to pneumonia, COPD exacerbation, underlying lung malignancy -continue high-flow therapy at this time, maintain O2 sats > 92% -could be related to pleural effusion, mucus plugging, bronchial obstruction from malignancy -continue bronchodilators -continue Mucomyst nebs -status post Pulmozyme for 3 days -continue chest physiotherapy -place the good lung down for better ventilation and perfusion -chest x-ray this morning: Stable whiteout of the right hemithorax with cut off of the right mainstem bronchus. Findings are consistent with large effusion and associated complete right lung atelectasis.Stable extensive pulmonary edema pattern versus pneumonia in the left lung Patient is a mouth breather, will place a face mask when patient is asleep during the day or night 11/20/2023: CTA chest IMPRESSION: 1. No pulmonary embolism. 2. large right hydropneumothorax with decrease in size of the gas component since the prior study. 3. Associated near complete collapse of the right lung with 3 x 2 cm region of decreased enhancement within the collapsed portion of the right lung suspicious for pneumonia or malignancy. 4. Small left pleural effusion with perihilar predominant groundglass and septal line thickening in the left lung which could represent pulmonary edema or pneumonia. 5. Cholelithiasis (2) Hydropneumothorax: Code(s): J94.8 - Other specified pleural conditions Status: Acute Assessment and Plan: Patient has had multiple episodes of pleural effusion requiring thoracentesis, he was recommended to have a pleural VAC as an outpatient at [facility]. -Patient has been accepted to the ICU at [facility] by Dr. Langley, awaiting bed. Patient gets all his care at [facility] and is being transferred for similar reason. 11/22: Right-sided Thoracentesis with removal of 1000 mL of serosanguineous fluid 11/23: Repeat right-sided thoracentesis with removal of 1000 mL of serosanguineous fluid (3) Hyponatremia: Code(s): E87.1 - Hypo-osmolality and hyponatremia Status: Acute Assessment and Plan: Multifactorial -sodium dropped to 116 on 11/23, patient was given 3% saline -appreciate nephrology following the patient -sodium level this morning is 124 -will increase sodium tablets to 1 g t.i.d. with meals, discussed with Nephrology and are agreeable -Continue to monitor (4) Adenocarcinoma of right lung: Code(s): C34.91 - Malignant neoplasm of unspecified part of right bronchus or lung Status: Acute Assessment and Plan: Follows up with Dr. Carr for right lung adenocarcinoma s/p chemoRT w/ carboplatin and paclitaxel (-11/2022), durvalumab (02/2023-04/2023), carboplatin + pemetrexed (05/2023-06/2023), and more recently has been treated with Abraxane (09/2023 - Last received C2 on 10/16 Patient has history of malignant pleural effusions, last thoracentesis was on 10/23/2023 -there has been some talks about PleurX catheter (5) Chronic obstructive pulmonary disease: Code(s): J44.9 - Chronic obstructive pulmonary disease, unspecified Status: Acute Assessment and Plan: History of COPD, continue bronchodilators and home Trelegy -continue oxygen support (6) Hypothyroidism: Code(s): E03.9 - Hypothyroidism, unspecified Status: Acute Assessment and Plan: Continue levothyroxine (7) Benign prostatic hyperplasia: Code(s): N40.0 - Benign prostatic hyperplasia without lower urinary tract symptoms Status: Chronic Assessment and Plan: Continue Flomax Plan DVT prophylaxis: Continue SCDs, continue to hold Eliquis, patient started on therapeutic Lovenox in case he requ
--- NOTE | 2023-11-27 18:55 | PC.NURSE ---
spoke to [facility] transfer center both 11/25/2021 at 0954, and 11/26/2021 at 0936. Discussed vitals, labs and any changes in patient condition and care. No bed available at this time. Transfer center to continue to follow patient for potential transfer once bed becomes available.
[2023-11-27] MEDS: ACETAMINOPHEN 325 MG TABLET 650 MG PO (21:08)
[2023-11-27] MEDS: FUROSEMIDE INJ 40 MG/4 ML VIAL IV PUSH (21:12)
[2023-11-28] VITALS (27 sets, daily range): BP systolic 98–118; BP diastolic 39–94; PULSE 86–114; RESP 20–37; TEMP 36.4–36.8; O2SAT 80–97
[2023-11-28] MEDS: LEVALBUTEROL NEB 1.25 MG/3 ML INHALATION ×4 (01:50→19:53)
[2023-11-28] MEDS: ACETYLCYSTEINE 20% INHAL SOLN 800 MG/4 ML VIAL 200 MG INHALATION ×4 (01:50→19:52)
[2023-11-28] MEDS: IPRATROPIUM BR 0.02% INH SOLN 0.5 MG/2.5 ML VIAL INHALATION ×4 (01:51→19:53)
[2023-11-28 05:27] LABS: Basophils Percent Auto 0.3 % (0.2-1.2); Eosinophils Percent Auto 0.1 % (0-4.4); Hematocrit 24.6 % (42.0-52.0); Hemoglobin 7.8 g/dL (14.0-18.0); Immature Granulocyte Absolute 0.31 K/mm3 (0.00-0.031); Immature Granulocyte Percent A 3.1 % (0-0.5); Lymphocytes Absolute Auto 1.22 K/mm3 (0.9-3.2); Lymphocytes Percent Auto 12.2 % (18.3-44.2); Mean Corpuscular HGB Conc 31.7 g/dl (32-36); Mean Corpuscular Hemoglobin 34.2 pg (26-34); Mean Corpuscular Volume 107.9 fl (80-100); Mean Platelet Volume 8.7 fl (7.4-10.4); Monocytes Absolute Auto 1.1 K/mm3 (0.1-0.6); Neutrophils Absolute Auto 7.4 K/mm3 (1.3-6.7); Neutrophils Percent Auto 73.3 % (45.5-73.1); Platelet Count Result 208 k/mm3 (150-375); Red Blood Count 2.28 M/mm3 (4.6-6.20); Red Cell Distribution Width 20.2 % (11.5-14.5)
[2023-11-28 05:37] LABS: Alanine Aminotransferase 17 U/L (6-50); Albumin Level 2.9 g/dL (3.5-5.1); Alkaline Phosphatase 94 U/L (38-126); Anion Gap 3 mmol/L (4-12); Aspartate Amino Transferase 29 U/L (17-59); Bilirubin,Total 0.5 mg/dL (0.2-1.3); Blood Urea Nitrogen 31 mg/dL (9-20); Calcium 8.2 mg/dL (8.4-10.2); Carbon Dioxide 37 mmol/L (22-30); Chloride 85 mmol/L (98-107); Estimated CRCL calculation 56 ml/min; Estimated Glomerular Filt Rate > 60; Glucose 105 mg/dL (65-110); Phosphorus 3.3 mg/dL (2.5-4.5); Potassium 3.6 mmol/L (3.4-5.0); Sodium 125 mmol/L (137-145)
[2023-11-28 05:46] LABS: Platelet Estimate Adequate (Adequate)
[2023-11-28 05:47] LABS: Hypochromasia 1+; Platelet Clumps Present
[2023-11-28 05:48] LABS: Anisocytosis 1+; Macrocytosis 1+ (NORMAL)
[2023-11-28 05:49] LABS: Schistocytes None Seen; Stomatocytes 1+
[2023-11-28] MEDS: LEVOTHYROXINE SODIUM 100 MCG TABLET PO (06:02)
[2023-11-28] MEDS: FLUTICASONE/UMECLIDIN/VILANTER 200-62.5-25 MCG ELLIPTA 1 PUFF INHALATION (08:21)
[2023-11-28] MEDS: SODIUM CHLORIDE 1 GM TABLET PO ×3 (09:00→16:20)
--- NOTE | 2023-11-28 09:01 | WPDINTPN ---
Progress Note: A&P Assessment and Plan (1) Acute and chronic respiratory failure with hypoxia: Code(s): J96.21 - Acute and chronic respiratory failure with hypoxia Status: Acute Assessment and Plan: Acute on chronic respiratory failure likely related to large right pleural effusion, malignancy obstructing airway leading to collapse of the lung, pneumonia, baseline COPD 11/20/2023: CTA chest IMPRESSION: 1. No pulmonary embolism. 2. large right hydropneumothorax with decrease in size of the gas component since the prior study. 3. Associated near complete collapse of the right lung with 3 x 2 cm region of decreased enhancement within the collapsed portion of the right lung suspicious for pneumonia or malignancy. 4. Small left pleural effusion with perihilar predominant groundglass and septal line thickening in the left lung which could represent pulmonary edema or pneumonia. 5. Cholelithiasis -continue high-flow therapy at this time, maintain O2 sats > 92% -status post thoracentesis x 2 -continue bronchodilators, Mucomyst -status post Pulmozyme for 3 days -continue chest physiotherapy and other noninvasive measures - Patient was evaluated by pulmonology - Chest x-ray reviewed - Patient is DNR DNI and family is now considering hospice/palliative care. (2) Hydropneumothorax: Code(s): J94.8 - Other specified pleural conditions Status: Acute Assessment and Plan: Patient has had multiple episodes of pleural effusion requiring thoracentesis, he was recommended to have a pleural VAC as an outpatient at [facility]. 11/22: Right-sided Thoracentesis with removal of 1000 mL of serosanguineous fluid 11/23: Repeat right-sided thoracentesis with removal of 1000 mL of serosanguineous fluid At this point due to lung that is not expanding due to obstruction removal of further fluids with thoracentesis will not be helpful as fluid will come back and an empty space. -Patient has been accepted to the ICU at [facility] by Dr. Langley, awaiting bed. Patient gets all his care at [facility] and is being transferred for similar reason. (3) Hyponatremia: Code(s): E87.1 - Hypo-osmolality and hyponatremia Status: Acute Assessment and Plan: Multifactorial -sodium dropped to 116 on 11/23, patient was given 3% saline -appreciate nephrology following the patient -sodium level has improved to 125 and has been stable although not normal -continue sodium tablets as ordered by Nephrology -Continue to monitor (4) Adenocarcinoma of right lung: Code(s): C34.91 - Malignant neoplasm of unspecified part of right bronchus or lung Status: Acute Assessment and Plan: Follows up with Dr. Carr for right lung adenocarcinoma s/p chemoRT w/ carboplatin and paclitaxel (-11/2022), durvalumab (02/2023-04/2023), carboplatin + pemetrexed (05/2023-06/2023), and more recently has been treated with Abraxane (09/2023 - Last received C2 on 10/16 Patient has history of malignant pleural effusions, last thoracentesis was on 10/23/2023 -there has been some talks about PleurX catheter (5) Chronic obstructive pulmonary disease: Code(s): J44.9 - Chronic obstructive pulmonary disease, unspecified Status: Acute Assessment and Plan: History of COPD, continue bronchodilators and home Trelegy -continue oxygen support (6) Hypothyroidism: Code(s): E03.9 - Hypothyroidism, unspecified Status: Acute Assessment and Plan: Continue levothyroxine (7) Benign prostatic hyperplasia: Code(s): N40.0 - Benign prostatic hyperplasia without lower urinary tract symptoms Status: Chronic Assessment and Plan: Continue Flomax Plan DVT prophylaxis: Continue SCDs, continue to hold Eliquis, patient started on therapeutic Lovenox Stress ulcer prophylaxis: Not indicated Nutrition: Continue regular diet along with supplements Code Status: DNR DNI 11/27 I had long discussion with patient's at bedside. I herman
--- NOTE | 2023-11-28 09:14 | PCNFU ---
Nutrition Follow-Up Complete: Inadequate oral intake related to NPO status as evidenced by NPO, report of recent loss of appetite Goal: Diet advancement Resolved Intakes <75% when diet is advanced - Progressing. Intakes improved to 20-100% meals with 50-100% supplement recorded. Continue with same goal Pt current nutrition is Regular diet. Ensure Enlive TID for additional 350 kcal ad 20 g protein each. Nutrition recommendation: No new nutrition recommendations. Continue with current diet orders and nutrition care plan. Last recorded weight is 71.8 kg. Bowel Motility: Last BM recorded 11/25/23. May consider bowel regimen Labs Reviewed: Hgb 7.8, Hct 24.6, Alb 2.9, Na 125, BUN 31 Meds Noted: Lovenox, synthroid Skin: Preventative dressing, no pressure injuries Additional Notes: Progressing with intakes. Can monitor every 5 days now. Still awaiting transfer to [facility]. Agree with orders. Monitoring intakes, weights, labs, diet order, plan of care Follow up in 5 days
[2023-11-28] MEDS: TAMSULOSIN HCL 0.4 MG CAPSULE PO (10:00)
[2023-11-28] MEDS: CHOLECALCIFEROL 1,000 UNITS TABLET 2000 UNITS PO (10:00)
[2023-11-28] MEDS: ENOXAPARIN 80 MG/0.8 ML SYRINGE 70 MG SUB-Q ×2 (10:00→21:15)
--- NOTE | 2023-11-28 10:01 | P.PNNP_ITS ---
Progress Note: A&P Assessment and Plan (1) Hyponatremia: Code(s): E87.1 - Hypo-osmolality and hyponatremia Status: Acute Assessment and Plan: * relatively stable at this time * acute on chronic * 132 - 135mmols/L in the last month (Nov 2023) * however, back in November 2019 the sodium ranged from 135-137, 3 out of the 4 times it was low. * multiple risk factors: * lung cancer * chronic pleural effusion * COPD * pain * pain medications (narcotics) * thyroid disease (TSH/T4/T3 results noted) * BPH * fluid overload * Echo results noted * cortisol level is okay; follow-up on SPEP/UPEP * current interventions include sodium chloride tablets and p.o. furosemide (tid frequency) * no need for fluid restriction since he is not taking much in at this time * consideration given to adding demeclocycline -- however, has an allergy to doxycycline which was dizziness which was quite severe so this was not done * follow trend of repeat sodium levels (2) Acute and chronic respiratory failure with hypoxia: Code(s): J96.21 - Acute and chronic respiratory failure with hypoxia Status: Acute Assessment and Plan: * presumably secondary to large right pleural effusion as noted by admission imaging * cannot discount pneumonia, COPD, and underlying lung malignancy playing a role * continue supplemental oxygen * ongoing bronchodilator therapy * PRN IV diuresis; already on oral at this time (3) Hydropneumothorax: Code(s): J94.8 - Other specified pleural conditions Status: Acute Assessment and Plan: * known and recurrent history of this issue * the was some discussion about PleurX catheter placement on last office visit with Pulmonary * however, this was delayed due to recent right femoral fracture + hospitalization * presumed etiology of #2 * s/p right thoracentesis (on 11/22 and 11/23) with ~ 1000cc fluid removed * admission CTA of chest noted: * no pulmonary embolism * large right hydropneumothorax with decrease in size of the gas component since the prior study * associated near complete collapse of the right lung with 3 x 2 cm region of decreased enhancement within the collapsed portion of the right lung ulices picious for pneumonia or malignancy * small left pleural effusion with perihilar predominant ground glass and septal line thickening in the left lung which could represent pulmonary edema or pneumonia. * previous pleural fluid analysis (at [facility]) was positive for adenocarcinoma of the lung * CXR still with complete whiteout of right lung (despite diuresis and thoracentesis x 2) (4) Adenocarcinoma of right lung: Code(s): C34.91 - Malignant neoplasm of unspecified part of right bronchus or lung Status: Acute Assessment and Plan: * follows with Dr. Carr for management of right lung adenocarcinoma * s/p chemotherapy (has been receiving since 2022) * complicated by recurrent right malignant pleural effusions requiring thoracentesis * noted discussion about possible PleurX catheter placement (5) Chronic obstructive pulmonary disease: Code(s): J44.9 - Chronic obstructive pulmonary disease, unspecified Status: Acute Assessment and Plan: * known diagnosis * on bronchodilator therapy and Trelegy * continue oxygen support (6) Anemia: Code(s): D64.9 - Anemia, unspecified Status: Acute Assessment and Plan: * due to underlying malignancy and acute illness * follow trend of H/H * c
--- NOTE | 2023-11-28 10:01 | PM.PNNEP ---
Progress Note: A&P Assessment and Plan (1) Hyponatremia: Code(s): E87.1 - Hypo-osmolality and hyponatremia Status: Acute Assessment and Plan: relatively stable at this time acute on chronic 132 - 135mmols/L in the last month (Nov 2023) however, back in November 2019 the sodium ranged from 135-137, 3 out of the 4 times it was low. multiple risk factors: lung cancer chronic pleural effusion COPD pain pain medications (narcotics) thyroid disease (TSH/T4/T3 results noted) BPH fluid overload Echo results noted cortisol level is okay; follow-up on SPEP/UPEP current interventions include sodium chloride tablets and p.o. furosemide (tid frequency) no need for fluid restriction since he is not taking much in at this time consideration given to adding demeclocycline -- however, has an allergy to doxycycline which was dizziness which was quite severe so this was not done follow trend of repeat sodium levels (2) Acute and chronic respiratory failure with hypoxia: Code(s): J96.21 - Acute and chronic respiratory failure with hypoxia Status: Acute Assessment and Plan: presumably secondary to large right pleural effusion as noted by admission imaging cannot discount pneumonia, COPD, and underlying lung malignancy playing a role continue supplemental oxygen ongoing bronchodilator therapy PRN IV diuresis; already on oral at this time (3) Hydropneumothorax: Code(s): J94.8 - Other specified pleural conditions Status: Acute Assessment and Plan: known and recurrent history of this issue the was some discussion about PleurX catheter placement on last office visit with Pulmonary however, this was delayed due to recent right femoral fracture + hospitalization presumed etiology of #2 s/p right thoracentesis (on 11/22 and 11/23) with ~ 1000cc fluid removed admission CTA of chest noted: no pulmonary embolism large right hydropneumothorax with decrease in size of the gas component since the prior study associated near complete collapse of the right lung with 3 x 2 cm region of decreased enhancement within the collapsed portion of the right lung suspicious for pneumonia or malignancy small left pleural effusion with perihilar predominant ground glass and septal line thickening in the left lung which could represent pulmonary edema or pneumonia. previous pleural fluid analysis (at [facility]) was positive for adenocarcinoma of the lung CXR still with complete whiteout of right lung (despite diuresis and thoracentesis x 2) (4) Adenocarcinoma of right lung: Code(s): C34.91 - Malignant neoplasm of unspecified part of right bronchus or lung Status: Acute Assessment and Plan: follows with Dr. Carr for management of right lung adenocarcinoma s/p chemotherapy (has been receiving since 2022) complicated by recurrent right malignant pleural effusions requiring thoracentesis noted discussion about possible PleurX catheter placement (5) Chronic obstructive pulmonary disease: Code(s): J44.9 - Chronic obstructive pulmonary disease, unspecified Status: Acute Assessment and Plan: known diagnosis on bronchodilator therapy and Trelegy continue oxygen support (6) Anemia: Code(s): D64.9 - Anemia, unspecified Status: Acute Assessment and Plan: due to underlying malignancy and acute illness follow trend of H/H consider SRI but unclear how beneficial it would be (7) Benign prostatic hyperplasia: Code(s): N40.0 - Benign prostatic hyperplasia without lower urinary tract symptoms Status: Chronic Assessment and Plan: continue Flomax therapy Will continue to follow. Subjective Date/time seen: 11/28/23 10:01 Interval history: Follow-up for acute on chronic hyponatremia. Chart reviewed since last seen; sodium level relatively stable with current interventions (but with no
[2023-11-28] MEDS: LIDOCAINE 5% PATCH 4 PATCH TOPICAL (11:23)
--- NOTE | 2023-11-28 13:50 | PM.IMPN ---
Progress Note: A&P Assessment and Plan (1) Acute and chronic respiratory failure with hypoxia: Code(s): J96.21 - Acute and chronic respiratory failure with hypoxia Status: Acute Assessment and Plan: Acute on chronic respiratory failure likely related to large right pleural effusion, malignancy obstructing airway leading to collapse of the lung, pneumonia, baseline COPD 11/20/2023: CTA chest IMPRESSION: 1. No pulmonary embolism. 2. large right hydropneumothorax with decrease in size of the gas component since the prior study. 3. Associated near complete collapse of the right lung with 3 x 2 cm region of decreased enhancement within the collapsed portion of the right lung suspicious for pneumonia or malignancy. 4. Small left pleural effusion with perihilar predominant groundglass and septal line thickening in the left lung which could represent pulmonary edema or pneumonia. 5. Cholelithiasis -continue high-flow therapy at this time, maintain O2 sats > 92% -status post thoracentesis x 2 -continue bronchodilators, Mucomyst -status post Pulmozyme for 3 days -continue chest physiotherapy and other noninvasive measures - Patient was evaluated by pulmonology - Chest x-ray reviewed - Patient is DNR DNI and family is now considering hospice/palliative care. (2) Hydropneumothorax: Code(s): J94.8 - Other specified pleural conditions Status: Acute Assessment and Plan: Patient has had multiple episodes of pleural effusion requiring thoracentesis, he was recommended to have a pleural VAC as an outpatient at [facility]. 11/22: Right-sided Thoracentesis with removal of 1000 mL of serosanguineous fluid 11/23: Repeat right-sided thoracentesis with removal of 1000 mL of serosanguineous fluid At this point due to lung that is not expanding due to obstruction removal of further fluids with thoracentesis will not be helpful as fluid will come back and an empty space. -Patient has been accepted to the ICU at [facility] by Dr. Langley, awaiting bed. Patient gets all his care at [facility] and is being transferred for similar reason. (3) Hyponatremia: Code(s): E87.1 - Hypo-osmolality and hyponatremia Status: Acute Assessment and Plan: Multifactorial -sodium dropped to 116 on 11/23, patient was given 3% saline -appreciate nephrology following the patient -sodium level has improved to 125 and has been stable although not normal -continue sodium tablets as ordered by Nephrology -Continue to monitor (4) Adenocarcinoma of right lung: Code(s): C34.91 - Malignant neoplasm of unspecified part of right bronchus or lung Status: Acute Assessment and Plan: Follows up with Dr. Carr for right lung adenocarcinoma s/p chemoRT w/ carboplatin and paclitaxel (-11/2022), durvalumab (02/2023-04/2023), carboplatin + pemetrexed (05/2023-06/2023), and more recently has been treated with Abraxane (09/2023 - Last received C2 on 10/16 Patient has history of malignant pleural effusions, last thoracentesis was on 10/23/2023 -there has been some talks about PleurX catheter (5) Chronic obstructive pulmonary disease: Code(s): J44.9 - Chronic obstructive pulmonary disease, unspecified Status: Acute Assessment and Plan: History of COPD, continue bronchodilators and home Trelegy -continue oxygen support (6) Hypothyroidism: Code(s): E03.9 - Hypothyroidism, unspecified Status: Acute Assessment and Plan: Continue levothyroxine (7) Benign prostatic hyperplasia: Code(s): N40.0 - Benign prostatic hyperplasia without lower urinary tract symptoms Status: Chronic Assessment and Plan: Continue Flomax Plan DVT prophylaxis: Continue SCDs, continue to hold Eliquis, patient started on therapeutic Lovenox Stress ulcer prophylaxis: Not indicated Nutrition: Continue regular diet along with supplements Code Status: DNR DNI Family considering hospice and conclude this afternoon Sub
--- NOTE | 2023-11-28 16:38 | PC.NURSE ---
Baylee with [facility] transfer centered called at 1639. No bed available at this time. Current set of vitals and patient status discussed.
[2023-11-29] VITALS (11 sets, daily range): BP systolic 93–133; BP diastolic 53–70; PULSE 82–108; RESP 15–24; TEMP 36.6–36.9; O2SAT 87–94
[2023-11-29] MEDS: ACETYLCYSTEINE 20% INHAL SOLN 800 MG/4 ML VIAL 200 MG INHALATION ×2 (02:46→07:40)
[2023-11-29] MEDS: IPRATROPIUM BR 0.02% INH SOLN 0.5 MG/2.5 ML VIAL INHALATION ×2 (02:47→07:40)
[2023-11-29] MEDS: LEVALBUTEROL NEB 1.25 MG/3 ML INHALATION ×2 (02:47→07:40)
[2023-11-29 04:19] LABS: Protein, Total 5.3 g/dL (6.1-8.1)
[2023-11-29] MEDS: LEVOTHYROXINE SODIUM 100 MCG TABLET PO (05:46)
[2023-11-29] MEDS: FLUTICASONE/UMECLIDIN/VILANTER 200-62.5-25 MCG ELLIPTA 1 PUFF INHALATION (07:40)
[2023-11-29] MEDS: TAMSULOSIN HCL 0.4 MG CAPSULE PO (08:39)
[2023-11-29] MEDS: SODIUM CHLORIDE 1 GM TABLET PO (08:39)
[2023-11-29] MEDS: CHOLECALCIFEROL 1,000 UNITS TABLET 2000 UNITS PO (08:39)
[2023-11-29] MEDS: ENOXAPARIN 80 MG/0.8 ML SYRINGE 70 MG SUB-Q (08:39)
--- NOTE | 2023-11-29 08:49 | WPDINTPN ---
Progress Note: A&P Assessment and Plan (1) Acute and chronic respiratory failure with hypoxia: Code(s): J96.21 - Acute and chronic respiratory failure with hypoxia Status: Acute Assessment and Plan: Acute on chronic respiratory failure likely related to large right pleural effusion, malignancy obstructing airway leading to collapse of the lung, pneumonia, baseline COPD 11/20/2023: CTA chest IMPRESSION: 1. No pulmonary embolism. 2. large right hydropneumothorax with decrease in size of the gas component since the prior study. 3. Associated near complete collapse of the right lung with 3 x 2 cm region of decreased enhancement within the collapsed portion of the right lung suspicious for pneumonia or malignancy. 4. Small left pleural effusion with perihilar predominant groundglass and septal line thickening in the left lung which could represent pulmonary edema or pneumonia. 5. Cholelithiasis -continue high-flow therapy at this time, maintain O2 sats > 92% -status post thoracentesis x 2 -continue bronchodilators, Mucomyst -status post Pulmozyme for 3 days -continue chest physiotherapy and other noninvasive measures - Patient was evaluated by pulmonology -most recent Chest x-ray reviewed - Patient is DNR DNI and family is now planning to proceed with hospice/palliative care. -continue supportive care at this time (2) Hydropneumothorax: Code(s): J94.8 - Other specified pleural conditions Status: Acute Assessment and Plan: Patient has had multiple episodes of pleural effusion requiring thoracentesis, he was recommended to have a pleural VAC as an outpatient at [facility]. 11/22: Right-sided Thoracentesis with removal of 1000 mL of serosanguineous fluid 11/23: Repeat right-sided thoracentesis with removal of 1000 mL of serosanguineous fluid At this point due to lung that is not expanding due to obstruction removal of further fluids with thoracentesis will not be helpful as fluid will come back and an empty space. (3) Hyponatremia: Code(s): E87.1 - Hypo-osmolality and hyponatremia Status: Acute Assessment and Plan: Multifactorial -sodium dropped to 116 on 11/23, patient was given 3% saline -appreciate nephrology following the patient -sodium level has improved to 125 and has been stable although not normal -continue sodium tablets as ordered by Nephrology -Continue to monitor (4) Adenocarcinoma of right lung: Code(s): C34.91 - Malignant neoplasm of unspecified part of right bronchus or lung Status: Acute Assessment and Plan: Follows up with Dr. Carr for right lung adenocarcinoma s/p chemoRT w/ carboplatin and paclitaxel (-11/2022), durvalumab (02/2023-04/2023), carboplatin + pemetrexed (05/2023-06/2023), and more recently has been treated with Abraxane (09/2023 - Last received C2 on 10/16 Patient has history of malignant pleural effusions, last thoracentesis was on 10/23/2023 -there has been some talks about PleurX catheter (5) Chronic obstructive pulmonary disease: Code(s): J44.9 - Chronic obstructive pulmonary disease, unspecified Status: Acute Assessment and Plan: History of COPD, continue bronchodilators and home Trelegy -continue oxygen support (6) Hypothyroidism: Code(s): E03.9 - Hypothyroidism, unspecified Status: Acute Assessment and Plan: Continue levothyroxine (7) Benign prostatic hyperplasia: Code(s): N40.0 - Benign prostatic hyperplasia without lower urinary tract symptoms Status: Chronic Assessment and Plan: Continue Flomax Plan DVT prophylaxis: Continue SCDs, continue to hold Eliquis, patient started on therapeutic Lovenox Stress ulcer prophylaxis: Not indicated Nutrition: Continue regular diet along with supplements Code Status: DNR DNI 11/27 I had long discussion with patient's at bedside. I updated her with patient's current status and current treatment plan. Patient has been a
--- NOTE | 2023-11-29 10:31 | PM.DS ---
DS: Admitting Diagnosis Discharge Date 11/29/23 Admitting Diagnosis Chest pain and shortness of breath. DS: Discharge Diagnosis Discharge Diagnosis (1) Acute and chronic respiratory failure with hypoxia: Code(s): J96.21 - Acute and chronic respiratory failure with hypoxia Status: Acute (2) Hydropneumothorax: Code(s): J94.8 - Other specified pleural conditions Status: Acute (3) Opacity of lung on imaging study: Code(s): R91.8 - Other nonspecific abnormal finding of lung field Status: Acute (4) Hyponatremia: Code(s): E87.1 - Hypo-osmolality and hyponatremia Status: Acute (5) Adenocarcinoma of right lung: Code(s): C34.91 - Malignant neoplasm of unspecified part of right bronchus or lung Status: Acute (6) COPD (chronic obstructive pulmonary disease): Code(s): J44.9 - Chronic obstructive pulmonary disease, unspecified Status: Acute (7) Chronic respiratory failure with hypoxia: Code(s): J96.11 - Chronic respiratory failure with hypoxia Status: Acute DS: Summary Hospital Course Hospital Course: 83-year-old male with history of acute on chronic respiratory failure hypoxic secondary to recurrent pleural effusion and requiring thoracentesis patient had been on the ventilator, patient clinical symptoms were not improving and family decided to withdraw the care and placed patient under hospice care, will discharge the patient to hospice Time Spent with Patient Time attestation: Total time spent providing and/or coordinating discharge services: Exam Narrative: Patient is comfortable, NAD HEENT: eyes are clear and none icteric LUNGS: Bilateral decreased air entry HEART: RR S1S2 ABD: BS+, Soft and nontender Lower extremities: no edema SKIN: nonjaundiced Neuro: grossly intact. DS: Data Data Completed and Pending Completed studies during hospitalization: Pending at discharge 11/23/23 10:32 Cytology [PTH] Routine Labs on day of discharge: Labs from last 24 hours 11/26/23 03:59 Total Protein 5.3 L Preliminary micro results at discharge 11/23/23 10:39 Fungal Culture - Preliminary Pleural Fluid Discharge Plan Discharge Attending physician on discharge: Carlos Holman Consulting providers: Stephanie Luis; Blair Marcelino; Mayank Munoz; Bereket Sagastume; Garima Jaramillo; Evgeny Garcia; Tom Schuster; Oc Khanna; Lucio Larios; Татьяна Bee; Bubba Saleh; Brad Corrigan; J Luis Greer V.; Anant Conte Discharging Clinician: Marni Ferrara Patient Disposition: Hospice - Medical Facility Activity: as tolerated Diet: as tolerated Discharge Instructions: Respiratory Failure. Patient is being discharge to hospice Patient Instructions: Apixaban (By mouth) Stand Alone Forms: General Discharge Information Discharge Medications: No Action No Home Medications Date of admission: 11/23/23 08:55 Primary Care Provider: Dottie Cordoba Admitting Provider: Carlos Holman Attending physician on admission: Marni Ferrara Condition: Serious
--- NOTE | 2023-11-29 11:15 | PCNFU ---
Nutrition Follow-Up Complete: Inadequate oral intake related to NPO status as evidenced by NPO, report of recent loss of appetite Goal: Diet advancement Intakes <75% when diet is advanced Patient has limited progress towards goal. Pt current nutrition is Regular with Ensure Enlive TID. Last recorded weight is 71.2 kg, up from 70.9 kg on admit. Bowel Motility: Last reported BM 11/24 Labs Reviewed:BUN 31,, Na 125, Hct 24.6,Hgb 7.8 Meds Noted: Lovenox, Synthroid, Vit D Skin: WNL Additional Notes: Patient currently on a regular diet with diet supplements. Spoke with nursing today regarding intake, patient did drink 100% of diet supplement today. Oral Intake has been very poor. Plans for Hospice at discharge. No further nutritional interventions needed. Monitoring intakes, weights, labs, diet order, plan of care every 7 days.
[2023-11-30 16:54] LABS: Albumin Pleural Fluid 1.3 g/dL; Amylase, Pleural Fluid 29 U/L; Glucose Pleural Fluid 82 mg/dL; Total Protein Pleural Fluid <3.0 g/dL
[2023-12-05 13:18] LABS: Abnormal Protein Band 1 0.8 g/dL (NONE DETECTED); Albumin 2.5 g/dL (3.8-4.8); Alpha 1 Globulin 0.5 g/dL (0.2-0.3); Alpha 2 Globulin 0.7 g/dL (0.5-0.9); Beta 1 Globulin 0.3 g/dL (0.4-0.6); Gamma Globulin 1.1 g/dL (0.8-1.7)
== END 2023-11-29 11:36 | disposition hospice, inpatient (51) | DRG 180 ==
LOC: ANHED 11-20 07:49 → ANHICU 11-22 14:15
PROVIDERS: Internal Medicine; Internal Medicine Nephrology; Physician Assistant; Admitting Provider Internal Medicine; Emergency Provider Emergency Medicine; PCP Nurse Practitioner Family; Visit Provider Family Medicine
DX: C34.91 Malignant neoplasm of unspecified part of right bronchus or lung (principal); J96.21 Acute and chronic respiratory failure with hypoxia; J91.0 Malignant pleural effusion; J94.8 Other specified pleural conditions; J98.19 Other pulmonary collapse; C91.10 Chronic lymphocytic leukemia of B-cell type not having achieved remission; E87.1 Hypo-osmolality and hyponatremia; J44.9 Chronic obstructive pulmonary disease, unspecified; I10 Essential (primary) hypertension; M84.451D Pathological fracture, right femur, subsequent encounter for fracture with routine healing; E03.9 Hypothyroidism, unspecified; N40.0 Benign prostatic hyperplasia without lower urinary tract symptoms; H40.9 Unspecified glaucoma; Z20.822 Contact with and (suspected) exposure to COVID-19; Z99.81 Dependence on supplemental oxygen; Z79.01 Long term (current) use of anticoagulants; Z87.891 Personal history of nicotine dependence; Z51.5 Encounter for palliative care
CPT/HCPCS: 32555; 36415; 36600; 71045; 71275; 80048; 80053; 80069; 81001; 82040; 82042; 82150; 82375; 82533; 82565; 82570; 82607; 82728; 82746; 82805; 82810; 82945; 82947; 83050; 83540; 83550; 83605; 83615; 83690; 83735; 83880; 83930; 83935; 83986; 84100; 84134; 84155; 84157; 84165; 84295; 84300; 84311; 84439; 84443; 84478; 84480; 84484; 84540; 85025; 85027; 85046; 85610; 85730; 86738; 87015; 87040; 87070; 87075; 87102; 87116; 87205; 87206; 87449; 87636; 87637; 87641; 87899; 88108; 88305; 88342; 89051; 93005; 93306; 94640; 94667; 94668; 94669; 96365; 96366; 96367; 96375; 99285; A9270; G0378; J0456; J0612; J0692; J1650; J1940; J2060; J3370; J7131; Q9957; Q9967

== ENCOUNTER 2023-11-29 11:37 | HOS | payer OTHER, MEDICARE, SELFPAY ==
[2023-11-29 12:32] VITALS: PULSE 111; RESP 24
[2023-11-29] MEDS: MORPHINE 50 MG/NS 100ML (*CRX) 50 MG/100 ML BAG IV CONT (12:32)
[2023-11-29] MEDS: MORPHINE SULFATE (*CRX) 2 MG/ML INJ IV PUSH (12:38)
[2023-11-29 12:42] VITALS: BMI 22.5
[2023-11-29 14:25] VITALS: O2SAT 86
[2023-11-29 16:25] VITALS: BP 102/53; PULSE 105; RESP 24; O2SAT 89
--- NOTE | 2023-11-29 17:13 | PC.NURSE ---
This patient, Mat Montoya, was received from ICU on 11/29/23 at 1713. Patient/family oriented to unit policies and routines
--- NOTE | 2023-11-29 17:20 | PC.NURSE ---
This patient, Mat Montoya, was transferred to [facility] on 11/29/23 at 1710. Personal belongings sent with patient. Report given to Jonathan. Appropriate documentation sent with patient.
--- NOTE | 2023-11-29 17:26 | PM.IMHP ---
H&P: HPI History of Present Illness Date/Time: 11/29/23 17:26 Chief Complaint: Uncontrolled pain Narrative: This unfortunate 83-year-old gentleman was in his usual vigorous state of health until 2 years ago when he was diagnosed with adenocarcinoma the right lung. He underwent initially successful radiation and chemotherapy. However during this past year he had recurrence of his tumor. The 2nd round of chemotherapy was refer on him. He lost appetite lost weight loss energy. He developed multiple recurrences of right pneumothorax. He was to have a continuous drain placed in the right lung a PleurX catheter however he presented and sent emergency department November 21 with increasing shortness of breath and worsened respiratory failure. During hospitalization he was treated with thoracentesis nebulizer therapy and was awaiting transfer to [facility]. During his time in the hospital however because of his poor functional status severe dyspnea and advanced age and advanced cancer he and his family opted for inpatient hospice service for control of his symptoms. Review of Systems Review of Systems: ROS unobtainable: Yes unobtainable due to medical condition PMFSH Past Medical History Medical History Adenocarcinoma of right lung Benign prostatic hyperplasia Chronic anticoagulation Chronic lymphocytic leukemia (2019) Chronic obstructive pulmonary disease Reportedly diagnosed while at [facility] in November 2023 though he has not had formal pulmonary function testing. Glaucoma Glaucoma Hydropneumothorax Hypertension Hypothyroidism Prostate cancer Under surveillance. Surgical History Surgical History History of right hip hemiarthroplasty (11/2023) Family History Family History Sibling Family history of lung cancer Family history of malignant neoplasm of brain Father Family history of coronary artery disease Family history of cardiovascular disease Social History Social History (Updated 11/29/23 @ 17:27 by Neftali Isabel MD) Social History: Surrogate medical decision maker: Erin Montoya, spouse. Code status: DNR Smoking packs per day: 1 Smoking cigarettes per day: 20.0 Years smoked: 50 Smoking pack-years: 50.00 Smoking status: Former smoker Second hand tobacco smoke exposure: Yes (Son smokes) Alcohol intake: never Substance use: never Substance use type: does not use Other substance usage details: none Do You Feel Safe in your Home?: Yes Lack of Transportation: No Lack of Food: Never True Current Housing: I Have Housing Concerned About Future Housing: No Difficulty Paying Gas/Electric Bills: No Difficulty Paying for Meds: No Currently Unemployed: No Education: High School Diploma/GED Difficulty w/ Childcare or Family Care: No Living arrangements: with family Occupation/Education: retired Spiritual care concerns: Yes Agree to blood products: Yes Meds Home Medications and Allergies Home Medications Medication Instructions Recorded Confirmed Type No Home Medications 11/29/23 11/29/23 History Allergies Allergy/AdvReac Type Severity Reaction Status Date / Time allopurinol Allergy Severe Rash Verified 11/20/23 07:35 benzalkonium Allergy Unknown Verified 11/20/23 07:35 doxycycline AdvReac Severe Dizziness Verified 11/20/23 07:35 Vital Signs Vital Signs - 24 hr 11/29/23 12:32 11/29/23 14:25 11/29/23 16:25 Pulse Rate 111 H 105 H Respiratory Rate 24 H 24 H Blood Pressure 102/53 L Pulse Oximetry 86 L 89 L Oxygen Delivery High Flow Nasal Cannula Oxygen Flow Rate 15 Exam Narrative: HEENT: PERRL, sclerae nonicteric, pharyngeal mucosa pink and intact NECK: No JVD CHEST: Clear to auscultation. Normal effort. HEART: NL S1/S2, regular, no murmur ABDOMEN: BS+, soft, n
[2023-11-29] MEDS: LORazepam INJ (*CRX) 2 MG/ML VIAL 1 MG IV PUSH (19:07)
[2023-11-29 21:31] VITALS: PULSE 102; RESP 16; O2SAT 75
[2023-11-30] MEDS: LORazepam INJ (*CRX) 2 MG/ML VIAL 1 MG IV PUSH (00:55)
--- NOTE | 2023-11-30 10:55 | P.DN_ITS ---
Discharge Summary Date and Time Date of : 11/30/23 Time of : 08:00 Provider Pronounced By: 2 RNs Name of First RN That Pronounced: Jonathan Babb Name of Second RN That Pronounced: Kareen Saxena Probable Cause of Probable Cause of : adenocarcinoma of lung Summary Hospital Course: Admitted to inpatient hospice service for symptom management. Medications were titrated to comfort. Mr. Montoya peacefully. Additional Data Confirmation of as documented by pronouncing clinician: Pupillary Reflex, Palpable Pulses, Response to Stimuli, Heart Tones and Breath Sounds Name of Provider Notified: Dr. Isabel Time Provider Notified: 09:34 Provider Requests Autopsy: No Family Requests Autopsy: No Financial Processing Clerk Notified: Yes Date [facility] Notified of : 11/30/23 Time [facility] Notified of : 08:30
== END 2023-11-30 08:00 | disposition expired | DRG 951 ==
LOC: ANHICU 12:29 → ANH3MED 17:07
PROVIDERS: Admitting Provider Internal Medicine; PCP Nurse Practitioner Family; Visit Provider Internal Medicine
DX: Z51.5 Encounter for palliative care (principal); C34.91 Malignant neoplasm of unspecified part of right bronchus or lung; J91.0 Malignant pleural effusion; J44.0 Chronic obstructive pulmonary disease with (acute) lower respiratory infection; R09.02 Hypoxemia; N40.0 Benign prostatic hyperplasia without lower urinary tract symptoms; H40.9 Unspecified glaucoma; I10 Essential (primary) hypertension; D64.9 Anemia, unspecified; E03.9 Hypothyroidism, unspecified; Z79.01 Long term (current) use of anticoagulants; Z87.891 Personal history of nicotine dependence; Z85.6 Personal history of leukemia; Z85.46 Personal history of malignant neoplasm of prostate
CPT/HCPCS: J2060; J2270